=== PATIENT | female | born 1965 | race Caucasian/White ===

== ENCOUNTER 2019-01-24 15:47 | Emergency (ER) | payer MEDICARE, OTHER ==
[2019-01-24 15:59] VITALS: BP 131/87
--- NOTE | 2019-01-24 16:27 | UC ---
Lower Extremity/Ankle HPI - HPI Summary HPI Summary: Patient presents to urgent care with complex medical history including rheumatoid arthritis. Patient is on immunosuppressant therapies as well as prednisone 10 mg a day. Patient states midday today she developed pain in her right forearm. Pain is worse when she extends her wrist. Patient states it feels like a burning flare. Patient states she no she starting a mitral arthritis flare because her knuckles of the little bit sore and stiff. No erythema no fever. Patient has Nucynta at home but did not take it as she tries to use it sparingly. Patient did take Tylenol without much improvement. Patient denies any injury. Patient is right hand dominant. Pt with a history of tendonitis - states this feels somewhat similar. Pain is better at rest - intensifies with movement Patient's medications reviewed this visit. - History of Current Complaint Chief Complaint: UCUpperExtremity Stated Complaint: R WRIST INJURY Time Seen by Provider: 01/24/19 16:14 Hx Obtained From: Patient Hx Last Menstrual Period: 08/13 Severity Initially: Moderate Severity Currently: Moderate Pain Intensity: 9 - Allergies/Home Medications Allergies/Adverse Reactions: Allergies Allergy/AdvReac Type Severity Reaction Status Date / Time morphine Allergy Joint Pain Verified 01/24/19 16:00 venlafaxine [From Effexor] Allergy See Comment Verified 01/24/19 16:00 Home Medications: Home Medications Etodolac 400 mg PO BID 01/24/19 [History Confirmed 01/24/19] Pantoprazole TAB * [Protonix TAB*] 40 mg PO DAILY 01/24/19 [History Confirmed ] PMH/Surg Hx/FS Hx/Imm Hx Previously Healthy: No - RA - Surgical History Surgical History: Yes Surgery Procedure, Year, and Place: LEFT HIP FX, WITH GRANT LEFT HIP SURGERY (FOR SPONTANEOUS FX)LEFT HIP REPLACEMENT 03/26/13. CSP - C5-6 - STENOSISED- POSTERIOR APPROACH - @[facility] – [place] - 2006. C SECTION 1997. lymph nodes removed from left inguinal area, found to be benign 12 + years ago - Family History Known Family History: Positive: Non-Contributory - Social History Lives: With Family Alcohol Use: Occasionally Alcohol Amount: Sober for 2.5yrs Substance Use Type: None Substance Use Comment - Amount & Last Used: "every 6 months" Smoking Status (MU): Never Smoked Tobacco Have You Smoked in the Last Year: No - Immunization History Most Recent Influenza Vaccination: 2011 Most Recent Tetanus Shot: 2007, LAST TITER WAS OCTOBER 2012 Most Recent Pneumonia Vaccination: NEVER Review of Systems All Other Systems Reviewed And Are Negative: Yes Constitutional: Positive: Negative Skin: Positive: Negative Musculoskeletal: Positive: Other: - right forearm Neurological: Positive: Paresthesia Physical Exam - Summary Physical Exam Summary: Vital Signs Reviewed: Yes A+Ox3, no distress Eyes: Conjunctiva Clear, ENT: Hearing grossly normal Neck: Positive: Supple Respiratory: Positive: No respiratory distress, No accessory muscle use Cardiovascular: CBT <2 sec all fingers, 2+ radial, 2+ ulnar abd soft + BS nt/nd no guarding, no distension Musculoskeletal Exam: Abduct right shoulder, + flex/ext elbow w + pronate/ supinate with pain right mid forearm + point tenderness mid dorsal forearm with extension to dosrum wrist. + increased discomfort with extension of wrist no warmth, edema, open wounds Neurological: Positive: Alert, + sensation throughout Psychological: Positive: Normal Response To analysis evaluator Skin: Positive: no rash, no ecchymosis, edema of DIP right hand "flare" per pt Triage Information Reviewed: Yes Vital Signs: Initial Vital Signs Temp 99.1 F 01/24/19 15:55 Pulse 104 01/24/19 15:55 Resp 18 01/24/19 15:55 BP 131/87 01/24/19 15:55 Pulse Ox 100 01/24/19 15:55 Diagnostics - Radiology No standard instances Radiology Interpretation Completed By: Radiologist - Patient Name: JADEN HUBER Medical Record#: [id number] Ordering Physician: Gisele Alvarado ASSEMBLER [employer] Acct.#: [id number] : 1965 Age: 53 Sex: F Location: [facility] Exam Date: 01/24/19 1601 ADM Status: REG ER Order Information: WRIST RIGHT 3 + VWS Accession Number: [id number] CPT: 23349 INDICATION: Right wrist pain COMPARISON: None. TECHNIQUE: 4 views right wrist. REPORT: The visualized bones are properly aligned and well corticated. Degenerative changes include narrowing of the radiocarpal joint with a mild degree of sclerotic change of the distal radius. Degenerative changes include sclerotic change of the articulating services at the right thumb metacarpal trapezium joint. There is a small degree of radial subluxation of the metacarpal relative to the trapezium.There is no fracture, dislocation or other focal osseous abnormality. IMPRESSION: Degenerative changes of the right wrist as described above without radiographically apparent acute fracture. If the patient's symptoms persist, follow-up imaging is recommended. < Electronically signed by Leodan Donovan MD in [place]> 01/24/191628 Dictated By: Leodan Donovan MD Dictated Date/Time: 01/24/191628 Transcribed Date/Time: 1627 Copy to: CC:Gisele Alvarado NP; Lisa Ch MD; Janice Porras MD Imaging - [facility] [address] [place] [address] ph ([phone] ph ([phone]) ph ) This report is only to be considered final once signed by the Provider(s) as displayed in the "<Electronically Signed by >" field (s). Absence of a signature indicates the report is in a draft status and still needs to be finalized. In the event this document was created by someone other than the signing Provider, the individual initiating the document will be listed in the "Entered by:" or "Dictated by:" smiley. 1 of 1 Lower Extremity Course/Dx - Course Course Of Treatment: Patient presents to urgent care reporting progressive pain in her right forearm today. Pain is better at rest worse with movement. Patient states pain is worse with extension of the wrist as well as supination. No direct trauma. Patient states she does have rheumatoid advised to starting a flare. Patient takes 10 mg of prednisone a day as well as other anti-inflammatory immunosuppressant agents. On exam vital signs are stable. Patient with point tenderness over her mid forearm and along the tendon sheath towards the wrist. There is no warmth no erythema no concern for acute infection. Patient is not febrile and is no concern for joint involvement. X-ray show no fracture. After long discussion with patient will start patient on a prednisone taper. Patient took 10 mg today we'll give her another 50 now. In the taper starting at 60 mg. 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 Patient does have Nuycenta at home, take NSAID, and has Tylenol. Patient placed in a forearm splint that she states provides comfort makes it feel better. Patient also given a sling. Encouraged ice or heat for comfort Strict return precautions. Patient comfortable in agreement with plan. - Differential Dx/Diagnosis Provider Diagnosis: Tendonitis Discharge - Sign-Out/Discharge Documenting (check all that apply): Patient Departure All imaging exams completed and their final reports reviewed: Yes - Discharge Plan Condition: Stable Disposition: HOME Prescriptions: predniSONE TAB* [Deltasone 20 MG TAB*] 20 mg PO DAILY #18 tab Patient Education Materials: Tendinitis (ED) Referrals: Janice Porras MD [Primary Care Provider] - Kenny Snell MD [Medical Doctor] - (Call tomorrow to discuss today's evaluation) Additional Instructions: - wear splint and sling for comfort and support - relax your arm in your sling to let it hold the weight of your arm and shoulder - Take prednisone taper as prescribed - Okay to take Tylenol (acetaminophen) every 6 hours in addition to your prescribed pain medication - okay to apply ice or heat for comfort - If you develop fever, reddness, uncontrolled pain, temperature/color changes to your fingers or any other concerns it is recommended you go to the emergency department for further testing and evaluation - contact your rheumatoid specialist tomorrow to discuss your symptoms and care plan - Billing Disposition and Condition Condition: STABLE Disposition: Home
[2019-01-24] MEDS ORDERED: predniSONE TAB* 10 MG PO ONE (16:41)
[2019-01-24] MEDS ORDERED: predniSONE TAB* 20 MG PO ONE (16:42)
== END 2019-01-24 17:05 | disposition home or self-care (01) ==
LOC: UCEAST 15:47
DX: M77.9 Enthesopathy, unspecified (principal); M06.9 Rheumatoid arthritis, unspecified
CPT/HCPCS: 99213; G0463; J7512

== ENCOUNTER 2019-06-08 10:16 | Emergency (ER) | payer MEDICARE, MEDICAID ==
[2019-06-08] MEDS ORDERED: Lidocaine PATCH 5%* 1 PATCH TRANSDERM ONE (13:23)
--- NOTE | 2019-06-08 13:29 | ED ---
HPI Chest Pain - HPI Summary HPI Summary: The patient is a 53 y/o F presenting to [facility] accompanied by with a chief complaint of left lateral rib pain onset five days ago. She reports that she twisted while getting off the couch and felt a popping sensation in the left chest. The pain initially improved, but she has used a Lidocaine patch at home to mild relief, and she has also used a long-release Nucynta that has not relieved the pain. The pain is rated 10/10 in severity with moving and deep inspirations and 5/10 at rest. She denies any SOB. She denies any trauma. She states that she has had previous rib bruising, spontaneous fracture of the left hip, and a history of osteoporosis. Prednisone use for 10 years attributing to low bone density. PMHx: asthma, sleep apnea, GERD, fibromyalgia, arthritis, RA, left hip fracture with replacement. Nonsmoker, occasional EtOH, no substance use. Medications reviewed. Allergies noted. - History of Current Complaint Chief Complaint: EDChestWallPain Time Seen by Provider: 06/08/19 13:22 Hx Obtained From: Patient Hx Last Menstrual Period: 08/13 Onset/Duration: Started Days Ago - five, Still Present Timing: Lasting Days Initial Severity: Severe Current Severity: Severe Pain Intensity: 10 Pain Scale Used: 0-10 Numeric Chest Pain Location: Left Lateral Chest Pain Radiates: No Character: Sharp/Stabbing Aggravating Factor(s): Movement, Deep Breaths Alleviating Factor(s): Rest, Other: - Lidocaine patch Associated Signs and Symptoms: Negative: Shortness of Breath - Allergy/Home Medications Allergies/Adverse Reactions: Allergies Allergy/AdvReac Type Severity Reaction Status Date / Time morphine Allergy Joint Pain Verified 01/24/19 16:00 venlafaxine [From Effexor] Allergy See Comment Verified 01/24/19 16:00 Home Medications: Home Medications Adalimumab (NF) [Humira Pen (NF)] 40 mg SUBCUT WEEKLY 06/08/19 [History Confirmed 06/08/19] FLUoxetine CAP* [PROzac CAP*] 20 mg PO DAILY 06/08/19 [History Confirmed ] Potassium Chlor TAB* [Klor Con ER TAB*] 20 meq PO DAILY 06/08/19 [History Confirmed 06/08/19] Tapentadol ER (NF) [Nucynta ER (NF)] 100 mg PO DAILY 06/08/19 [History Confirmed 06/08/19] Tapentadol(NF) [Nucynta(NF)] 50 mg PO DAILY 06/08/19 [History Confirmed 06/08/19 ] buPROPion SR TAB* [Wellbutrin SR TAB*] 200 mg PO DAILY 06/08/19 [History Confirmed 06/08/19] traZODone TAB* [Desyrel TAB*] 150 mg PO BEDTIME PRN 06/08/19 [History Confirmed 06/08/19] PMH/Surg Hx/FS Hx/Imm Hx Endocrine/Hematology History: Denies: Hx Diabetes, Hx Systemic Lupus Erythematosus Cardiovascular History: Denies: Hx Congestive Heart Failure, Hx Hypertension, Hx Pacemaker/ICD Respiratory History: Reports: Hx Asthma, Hx Sleep Apnea - POSSIBLE Denies: Hx Chronic Obstructive Pulmonary Disease (COPD) GI History: Reports: Hx Gastroesophageal Reflux Disease, Other GI Disorders - MORNING DIARRHEA History: Reports: Other Problems/Disorders Denies: Hx Dialysis, Hx Renal Disease Musculoskeletal History: Reports: Hx Arthritis, Hx Rheumatoid Arthritis, Hx Back Problems, Hx Fibromyalgia, Hx Osteoporosis, Other Musculoskeletal History - fibromyalgia Sensory History: Denies: Hx Cataracts, Hx Contacts or Glasses, Hx Hearing Aid Opthamlomology History: Denies: Hx Cataracts, Hx Contacts or Glasses Neurological History: Reports: Other Neuro Impairments/Disorders - WEAKNESS LEFT ARM R/T NECK ISSUE R/T PREVIOUS C6 SURGERY Denies: Hx Dementia, Hx Headaches, Hx Seizures Psychiatric History: Reports: Hx Depression Denies: Hx Panic Disorder, Hx Substance Abuse - Cancer History Hx Chemotherapy: No Hx Radiation Therapy: No - Surgical History Surgical History: Yes Surgery Procedure, Year, and Place: LEFT HIP FX, WITH GRANT LEFT HIP SURGERY (FOR SPONTANEOUS FX)LEFT HIP REPLACEMENT 03/26/13. CSP - C5-6 - STENOSISED- [place] [place] C SECTION 1997. lymph nodes removed from left inguinal area, found to be benign 12 + years ago Hx Anesthesia Reactions: No - Immunization History Date of Tetanus Vaccine: Unk Date of Influenza Vaccine: None Infectious Disease History: No Infectious Disease History: Denies: Traveled Outside the [place] in Last 30 Days - Family History Known Family History: Negative: Diabetes - Social History Alcohol Use: Occasionally Alcohol Amount: Sober for 2.5yrs Hx Substance Use: No Substance Use Type: Reports: None Substance Use Comment - Amount & Last Used: "every 6 months" Hx Tobacco Use: No Smoking Status (MU): Never Smoked Tobacco Have You Smoked in the Last Year: No Review of Systems Positive: Chest Pain - left lateral rib pain Negative: Shortness Of Breath All Other Systems Reviewed And Are Negative: Yes Physical Exam - Summary Physical Exam Summary: Constitutional: Well-developed, Well-nourished, Alert, Active (-) Distressed, (- ) Diaphoretic HENT: Anterior fontanelle flat, Right TM normal and Left TM normal, Normal nose , Mucous membranes moist, Oropharynx clear. (-) Cranial deformity Eyes: Conjunctiva normal, EOM intact, PERRL. Neck: ROM normal, Neck supple. (-) Cervical adenopathy Cardio: Rhythm regular, rate normal, Heart sounds normal, S1 normal, S2 normal, Intact distal pulses, Pulses strong. (-) Murmur Pulmonary/Chest wall: Effort normal, Breath sounds normal. (-) Retraction, (-) Respiratory distress, (-) Wheezes, (-) Rales, (-) Rhonchi, (-) Stridor, (-) Nasal flaring Abd: Soft. (-) Distension, (-) Tenderness, (-) Guarding, (-) Rebound, (-) Hepatosplenomegaly, (-) Mass Musculoskeletal: Tenderness over the lower lateral ribs on the left side. Normal ROM. (-) Edema Lymph: (-) Cervical adenopathy Neuro: Alert Skin: Warm, Dry. (-) Rash, (-) Purpura, (-) Diaphoresis, (-) Petechiae, (-) Cyanosis Triage Information Reviewed: Yes Vital Signs On Initial Exam: Initial Vitals Temp Pulse Resp BP Pulse Ox 98.8 F 92 16 190/119 97 06/08/19 10:29 06/08/19 10:29 06/08/19 10:29 06/08/19 10:29 06/08/19 10:29 Vital Signs Reviewed: Yes Procedures - Sedation Patient Received Moderate/Deep Sedation with Procedure: No Diagnostics - Vital Signs Vital Signs Temp Pulse Resp BP Pulse Ox 06/08/19 11:21 98.2 F 85 18 200/128 100 06/08/19 10:29 98.8 F 92 16 190/119 97 - Laboratory Lab Statement: Any lab studies that have been ordered have been reviewed, and results considered in the medical decision making process. - Radiology Ribs w CXR Radiology Interpretation Completed By: Radiologist Summary of Radiographic Findings: Impression: Left ninth rib fracture. ED physician has reviewed this report. Re-Evaluation - Re-Evaluation First Eval Re-Evaluation Time: 14:35 Change: Improved Comment: Her pain has improved. Bedside US reveals no free fluid in LUQ ( patient was concerned about spleen given fr) We discussed results and plan for discharge. Chest Pain Course/Dx - Course Course Of Treatment: 53-year-old with osteoporosis secondary to chronic steroid use presents with left rib pain found to have a ninth rib fracture. - Atraumatic or fracture likely and secondary osteoporosis. Given Percocet, lidocaine patch. Patient will stop her home pain medication. - feels better w pain medication. - Diagnoses Provider Diagnoses: Fracture of rib of left side Discharge ED - Sign-Out/Discharge Documenting (check all that apply): Patient Departure - Patient will be discharged home. - Discharge Plan Condition: Stable Disposition: HOME Prescriptions: oxyCODONE/Acetamin 5/325 MG* [Percocet 5/325 TAB*] 1 tab PO Q6H PRN 3 Days #12 tab MDD 4 PRN Reason: Pain Patient Education Materials: Rib Fracture (ED) Referrals: Janice Porras MD [Primary Care Provider] - 3 Days Additional Instructions: You were seen in the emergency department for rib fracture. Please take percocet for severe pain. Please follow up with your primary care doctor in the next 2-3 days and return to the emergency department for worsening pain, trouble breathing, or concerning symptoms. It was a pleasure taking care of you today. - Billing Disposition and Condition Condition: STABLE Disposition: Home - Attestation Statements Document Initiated by Haiibe: Yes Documenting Scribe: Kavitha Moscoso Provider For Whom Barbara is Documenting (Include Credential): Dr. Devante Monzon MD Scribe Attestation: Kavitha Barber scribed for Dr. Devante Monzon MD on 06/08/19 at 1446. Scribe Documentation Reviewed: Yes Provider Attestation: The documentation as recorded by the Kavitha mondragon accurately reflects the service I personally performed and the decisions made by me, Dr. Devante Monzon MD Status of Scribe Document: Viewed
[2019-06-08] MEDS ORDERED: oxyCODONE/Acetamin 5/325 MG* TAB PO ONE (13:36)
[2019-06-08 14:59] VITALS: BP 182/117
[2019-06-08] MEDS ORDERED: Lidocaine Patch REMOVE* 1 NOTE MISC SCH (21:00)
== END 2019-06-08 14:50 | disposition home or self-care (01) ==
LOC: ED 10:16
DX: S22.32XA Fracture of one rib, left side, initial encounter for closed fracture (principal); R07.81 Pleurodynia; K21.9 Gastro-esophageal reflux disease without esophagitis; Z79.899 Other long term (current) drug therapy; R07.9 Chest pain, unspecified; X50.9XXA Other and unspecified overexertion or strenuous movements or postures, initial encounter; Y92.9 Unspecified place or not applicable
CPT/HCPCS: 99283; A9270-GY

== ENCOUNTER 2021-02-24 14:24 | Inpatient (IN) ==
[2021-02-24] MEDS ORDERED: Ondansetron 4 mg VIAL 2 MG/ML 2 ml VIAL IV ONE (14:48)
[2021-02-24] MEDS ORDERED: Rocuronium 50 mg VIAL 10 mg/ml 5 ml VIAL (50 mg) ONE (15:01)
[2021-02-24] MEDS ORDERED: Succinylcholine 200 mg VIAL 20 mg/ml 10 ml VIAL (200 mg) ONE (15:01)
[2021-02-24] MEDS ORDERED: Midazolam 5 mg/ml concentrated 5 mg/ml 1 ml VIAL ONE ×2 (15:06→16:05)
[2021-02-24] MEDS ORDERED: Etomidate 40 mg/20 ml (2 MG/ML) 20 ml VIAL (40 mg) ONE (15:10)
[2021-02-24] MEDS ORDERED: Propofol 10 mg/ml 100 ML BTL 100 ML ONE ×2 (15:17→18:11)
[2021-02-24 15:22] LABS: INR 0.99 (0.86-1.15)
[2021-02-24 15:23] LABS: ABS Lymphocytes 7.7 10^3/ul (1.0-4.8); ABS Monocytes 0.2 10^3/ul (0-0.8); ABS Neutrophils 6.4 10^3/ul (1.5-7.7); Hematocrit 43 % (35-47); Hemoglobin 14.4 g/dL (12.0-16.0); Lymphocyte % 53.9 %; Mean Corpuscular HGB Conc 33 g/dL (31-36); Mean Corpuscular Hemoglobin 33 pg (27-31); Mean Corpuscular Volume 98 fL (80-97); Mean Platelet Volume 7.5 fL (7.4-10.4); Nucleated Red Blood Cells % 0.1; Platelet Count 386 10^3/uL (150-450); Red Cell Distribution Width 15 % (10-15); White Blood Count 14.4 10^3/uL (3.5-10.8)
[2021-02-24 15:33] LABS: Albumin 4.2 g/dL (3.2-5.2); Albumin/Globulin Ratio 1.5 (1-3); Alkaline Phosphatase 66 U/L (35-149); Blood Urea Nitrogen 30 mg/dL (6-24); C Reactive Protein 14.16 mg/L (<8.01); CO2 Carbon Dioxide 22 mmol/L (22-32); Calcium 9.3 mg/dL (8.6-10.3); Chloride 101 mmol/L (101-111); Creatine Kinase 518 U/L (10-223); EGFR African American 22.9 (>60); EGFR Non-African American 18.9 (>60); Globulin 2.8 g/dL (2-4); Glucose 83 mg/dL (70-100); Sodium 139 mmol/L (135-145)
[2021-02-24 15:41] LABS: Anion Gap 16 mmol/L (2-11)
[2021-02-24 15:42] LABS: Troponin I 0.27 ng/mL (<0.03)
[2021-02-24 16:04] LABS: ALT 694 U/L (7-52)
[2021-02-24] MEDS ORDERED: Norepinephrine 16MCG/ML IVPRE 4,000 MCG/250 ML BAG IV ONE (16:05)
[2021-02-24 16:24] LABS: Phosphorus 13.3 mg/dL (2.5-5.0)
[2021-02-24] MEDS ORDERED: cefTRIAXone 1 gm/50 mL NS BAG 1 GM/50 ML BAG IVPB SCH (17:00)
[2021-02-24] MEDS ORDERED: Midazolam 10 mg/10 ml VIAL 1 mg/ml 10 ml VIAL (10 mg) IV ONE (17:09)
[2021-02-24] MEDS ORDERED: Lorazepam PYXIS KEY PRN (17:55)
[2021-02-24] MEDS ORDERED: Lorazepam PYXIS KEY ONE (18:14)
[2021-02-24] MEDS ORDERED: LORazepam 2 mg VIAL 1 ml ONE (18:14)
[2021-02-24] MEDS: LORazepam 2 mg VIAL 1 ml IV PUSH PRN (18:17)
[2021-02-24 18:19] LABS: Urine Appearance Cloudy; Urine Bilirubin Negative (Negative); Urine Blood 3+ (Negative); Urine Color Yellow; Urine Glucose Negative (Negative); Urine Ketones Negative (Negative); Urine Nitrite Negative (Negative); Urine Protein 2+(100 mg/dL) (Negative); Urine Specific Gravity 1.011 (1.002-1.030); Urine Urobilinogen Negative (Negative)
[2021-02-24 18:25] LABS: PCO2 Arterial 46 mmHg (35-45); PO2 Arterial 68 mmHg (80-100)
[2021-02-24 18:29] LABS: Urine Bacteria 1+ (Absent); Urine Red Blood Cell 3+(>10/hpf) (Absent); Urine Squamous Epithelial Cell Present (Absent); Urine White Blood Cell 3+(>20/hpf) (Absent)
[2021-02-24 18:35] LABS: Magnesium 1.9 mg/dL (1.9-2.7); Potassium Redraw 4.3 mmol/L (3.5-5.0)
[2021-02-24 18:36] LABS: Urine Benzodiazepine Screen Presumptive Positive (None Detect); Urine Cannabinoids Screen Presumptive Positive (None Detect); Urine Opiates Screen None Detected (None Detect)
[2021-02-24 18:41] LABS: Troponin I 0.56 ng/mL (<0.03)
[2021-02-24 19:01] LABS: AST Redraw 1719 U/L (13-39)
[2021-02-24] MEDS: Azithromycin 500 mg/250 ml NS 500 MG/250 ML BAG IVPB SCH (19:06)
[2021-02-24 20:14] LABS: Rapid COVID-19 Molecular Undetected (Undetected)
[2021-02-24] MEDS: Chlorhexidine MOUTHWASH 0.12% 15 ML UDC TOPICAL SCH (20:32)
[2021-02-24] MEDS: Pantoprazole VIAL 40 MG VIAL IV SCH (20:32)
[2021-02-24] MEDS ORDERED: NS 0.9% 1000 ml BAG 1,000 ML IV ONE (21:39)
[2021-02-24] MEDS: Propofol 10 mg/ml 100 ML BTL 100 ML IV SCH ×2 (21:50→22:22)
[2021-02-24] MEDS: Norepinephrine 16MCG/ML IVPRE 4,000 MCG/250 ML BAG IV SCH (23:22)
[2021-02-25 01:32] LABS: Troponin I 3.07 ng/mL (<0.03)
[2021-02-25] MEDS ORDERED: NS 0.9% 1000 ml BAG 1,000 ML IV ONE (01:41)
[2021-02-25] MEDS: Chlorhexidine MOUTHWASH 0.12% 15 ML UDC TOPICAL SCH ×6 (02:03→21:37)
[2021-02-25 02:15] LABS: PCO2 Arterial 32 mmHg (35-45); PO2 Arterial 258 mmHg (80-100)
[2021-02-25] MEDS: Hydrocortisone INJ 100 MG/2ML 2 ML VIAL IV SCH ×3 (03:05→21:37)
[2021-02-25 03:45] LABS: Hematocrit 34 % (35-47); Hemoglobin 11.5 g/dL (12.0-16.0); Mean Corpuscular HGB Conc 34 g/dL (31-36); Mean Corpuscular Hemoglobin 33 pg (27-31); Mean Corpuscular Volume 99 fL (80-97); Mean Platelet Volume 8.3 fL (7.4-10.4); Platelet Count 294 10^3/uL (150-450); Red Blood Count 3.47 10^6 /uL (3.70-4.87); Red Cell Distribution Width 15 % (10-15); White Blood Count 12.4 10^3/uL (3.5-10.8)
[2021-02-25 03:54] LABS: Albumin 2.6 g/dL (3.2-5.2); Magnesium 1.5 mg/dL (1.9-2.7); Potassium 3.4 mmol/L (3.5-5.0); Sodium 142 mmol/L (135-145)
[2021-02-25 04:00] LABS: Albumin/Globulin Ratio 1.4 (1-3); Alkaline Phosphatase 55 U/L (35-149); Blood Urea Nitrogen 36 mg/dL (6-24); EGFR African American 17.9 (>60); EGFR Non-African American 14.8 (>60); Globulin 1.8 g/dL (2-4); Phosphorus 5.5 mg/dL (2.5-5.0); Total Protein 4.4 g/dL (6.4-8.9)
[2021-02-25 04:03] LABS: Chloride 114 mmol/L (101-111)
[2021-02-25 04:15] LABS: Creatine Kinase 1197 U/L (10-223)
[2021-02-25 04:20] LABS: Anion Gap 18 mmol/L (2-11); CO2 Carbon Dioxide 10 mmol/L (22-32); Calcium 6.2 mg/dL (8.6-10.3); Glucose 39 mg/dL (70-100)
[2021-02-25 04:21] LABS: ALT 1026 U/L (7-52); AST 1270 U/L (13-39)
[2021-02-25] MEDS ORDERED: Dextrose 50% Syringe 50 ml 25 GM/50 ML SYRINGE ONE (04:21)
[2021-02-25] MEDS: Norepinephrine 16MCG/ML IVPRE 4,000 MCG/250 ML BAG IV SCH ×4 (04:23→14:11)
[2021-02-25] MEDS ORDERED: Sodium Bicarbonate 8.4% SYR 50 ml SYRINGE IV ONE (04:30)
[2021-02-25] MEDS ORDERED: Potassium Chloride LIQUID 20 MEQ/15 ML LIQUID PO ONE (04:31)
[2021-02-25] MEDS ORDERED: Magnesium Sulfate IV 3 GM in NS 0.9% 100 ml BAG 100 ML IVPB ONE (04:31)
[2021-02-25 04:37] LABS: ABS Eosinophils 0.2 10^3/ul (0-0.6); ABS Lymphocytes 3.4 10^3/ul (1.0-4.8); ABS Monocytes 0.3 10^3/ul (0-0.8); ABS Neutrophils 8.5 10^3/ul (1.5-7.7); Eosinophil % 1.2 %; Lymphocyte % 27.3 %; Nucleated Red Blood Cells % 0.2
[2021-02-25 04:40] LABS: Polychromasia 1+
[2021-02-25 04:41] LABS: Troponin I 2.91 ng/mL (<0.03)
[2021-02-25] MEDS ORDERED: NORMOSOL-R pH 7.4 1000 mL BAG 1,000 ML IV SCH (05:00)
[2021-02-25] MEDS: Dextrose 50% Syringe 50 ml 25 GM/50 ML SYRINGE IV PUSH PRN ×2 (06:15→06:22)
[2021-02-25] MEDS ORDERED: Perflutren Lipid Microsphere 3 ML VIAL ONE (08:03)
[2021-02-25 09:03] LABS: Alcohol, S < 13 mg/dL (<13)
[2021-02-25 09:24] LABS: Albumin/Globulin Ratio 1.4 (1-3); Alkaline Phosphatase 71 U/L (35-149); Blood Urea Nitrogen 37 mg/dL (6-24); CO2 Carbon Dioxide 16 mmol/L (22-32); Calcium 6.8 mg/dL (8.6-10.3); Chloride 105 mmol/L (101-111); Creatine Kinase 1501 U/L (10-223); EGFR African American 16.4 (>60); EGFR Non-African American 13.6 (>60); Globulin 2.1 g/dL (2-4); Glucose 102 mg/dL (70-100); Sodium 141 mmol/L (135-145); Total Protein 5.1 g/dL (6.4-8.9)
[2021-02-25 09:32] LABS: Anion Gap 20 mmol/L (2-11)
[2021-02-25] MEDS: Pantoprazole VIAL 40 MG VIAL IV SCH (10:03)
[2021-02-25 10:37] LABS: ALT 1882 U/L (7-52)
[2021-02-25 10:51] LABS: Magnesium 2.9 mg/dL (1.9-2.7); Potassium Redraw 4.2 mmol/L (3.5-5.0)
[2021-02-25] MEDS ORDERED: ACETYLCYSTEINE IV ONE ×3 (12:00→17:00)
[2021-02-25] MEDS ORDERED: D5W IV ONE ×3 (12:00→17:00)
[2021-02-25 12:17] LABS: INR 1.29 (0.86-1.15)
[2021-02-25 12:18] LABS: Albumin 3.1 g/dL (3.2-5.2); Albumin/Globulin Ratio 1.6 (1-3); EGFR African American 13.2 (>60); EGFR Non-African American 10.9 (>60); Potassium 4.3 mmol/L (3.5-5.0); Total Bilirubin 0.4 mg/dL (0.2-1.0); Total Protein 5.1 g/dL (6.4-8.9)
[2021-02-25] MEDS: Propofol 10 mg/ml 100 ML BTL 100 ML IV SCH (13:04)
[2021-02-25 13:14] LABS: Acetaminophen < 15 mcg/mL; Salicylate < 2.50 mg/dL (<30)
[2021-02-25] MEDS ORDERED: Piperacillin/Tazobac ADVAN 3.375 GM in NS 0.9% 100 ml BAG 100 ML IV ONE (14:05)
[2021-02-25] MEDS ORDERED: Norepinephrine 16MCG/ML IVPRE 4,000 MCG/250 ML BAG IV ONE (14:08)
[2021-02-25] MEDS ORDERED: Zosyn per Pharmacy NOTE FOLLOW UP SCH (15:00)
[2021-02-25] MEDS: fentaNYL INFUSION 50 mcg/mL VL 2,500 MCG/50 ML VIAL IV SCH (15:00)
[2021-02-25] MEDS ORDERED: Phenylephrine IV 50 MG in NS 0.9% 250 ml 245 ML IV SCH (15:00)
[2021-02-25 15:16] LABS: Acetaminophen < 15 mcg/mL
[2021-02-25] MEDS: Norepinephrine *QUAD STRENGTH* 16 mg/250 mL NS per protocol IV SCH ×2 (16:00→23:06)
[2021-02-25] MEDS: Azithromycin 500 mg/250 ml NS 500 MG/250 ML BAG IVPB SCH (17:25)
[2021-02-25 18:33] LABS: Albumin 2.9 g/dL (3.2-5.2); Albumin/Globulin Ratio 1.4 (1-3); EGFR Non-African American 10.8 (>60); Globulin 2.1 g/dL (2-4); Potassium 4.6 mmol/L (3.5-5.0); Total Bilirubin 0.4 mg/dL (0.2-1.0)
[2021-02-25 18:38] LABS: Calcium 6.4 mg/dL (8.6-10.3)
[2021-02-25] MEDS ORDERED: Lactated Ringers 1000 ml BAG 1,000 ML IV ONE (18:39)
[2021-02-25] MEDS: ZOSYN 3.375 GM Q12H per EXTENDED INFUSION IV SCH (21:37)
[2021-02-25] MEDS: Heparin 5000 UNITS/ML 1 mL VIAL SUBCUT SCH (21:37)
[2021-02-26] MEDS: Chlorhexidine MOUTHWASH 0.12% 15 ML UDC TOPICAL SCH ×6 (02:33→21:54)
[2021-02-26] MEDS ORDERED: Lactated Ringers 1000 ml BAG 1,000 ML IV ONE (05:14)
[2021-02-26] MEDS: Hydrocortisone INJ 100 MG/2ML 2 ML VIAL IV SCH ×3 (05:37→21:54)
[2021-02-26 06:12] LABS: PCO2 Arterial 23 mmHg (35-45); PO2 Arterial 183 mmHg (80-100)
[2021-02-26 06:23] LABS: Hematocrit 36 % (35-47); Hemoglobin 12.3 g/dL (12.0-16.0); Mean Corpuscular HGB Conc 34 g/dL (31-36); Mean Corpuscular Hemoglobin 33 pg (27-31); Mean Corpuscular Volume 96 fL (80-97); Mean Platelet Volume 8.2 fL (7.4-10.4); Platelet Count 240 10^3/uL (150-450); Red Blood Count 3.74 10^6 /uL (3.70-4.87); Red Cell Distribution Width 15 % (10-15); White Blood Count 23.6 10^3/uL (3.5-10.8)
[2021-02-26 06:44] LABS: Albumin 2.6 g/dL (3.2-5.2); Albumin/Globulin Ratio 1.1 (1-3); EGFR African American 10.9 (>60); Globulin 2.4 g/dL (2-4); Magnesium 2.4 mg/dL (1.9-2.7); Phosphorus 6.1 mg/dL (2.5-5.0); Total Bilirubin 0.5 mg/dL (0.2-1.0)
[2021-02-26 07:39] LABS: Calcium 6.3 mg/dL (8.6-10.3)
[2021-02-26] MEDS: fentaNYL INFUSION 50 mcg/mL VL 2,500 MCG/50 ML VIAL IV SCH (07:53)
[2021-02-26 08:04] LABS: ABS Eosinophils 0.1 10^3/ul (0-0.6); ABS Lymphocytes 4.8 10^3/ul (1.0-4.8); ABS Monocytes 0.6 10^3/ul (0-0.8); ABS Neutrophils 18.1 10^3/ul (1.5-7.7); Eosinophil % 0.5 %; Lymphocyte % 20.3 %; Nucleated Red Blood Cells % 0.1; RBC Morphology Normal (Normal)
[2021-02-26 08:19] LABS: Potassium 4.9 mmol/L (3.5-5.0)
[2021-02-26 08:20] LABS: Calcium 6.4 mg/dL (8.6-10.3); EGFR African American 11.4 (>60); EGFR Non-African American 9.4 (>60)
[2021-02-26 08:21] LABS: Albumin 2.8 g/dL (3.2-5.2); Albumin/Globulin Ratio 1.1 (1-3); Globulin 2.5 g/dL (2-4); Total Bilirubin 0.5 mg/dL (0.2-1.0); Total Protein 5.3 g/dL (6.4-8.9)
[2021-02-26] MEDS: Propofol 10 mg/ml 100 ML BTL 100 ML IV SCH (08:27)
[2021-02-26] MEDS: Heparin 5000 UNITS/ML 1 mL VIAL SUBCUT SCH ×2 (08:35→21:54)
[2021-02-26] MEDS: Pantoprazole VIAL 40 MG VIAL IV SCH (08:35)
[2021-02-26] MEDS ORDERED: fentaNYL 100 mcg/2 ml 50 MCG/ML VIAL IV SLOW PU PRN (09:36)
[2021-02-26] MEDS: Linezolid 600 MG IVPREMIX(*) 600 MG/300 ML BAG IVPB SCH ×2 (10:21→21:54)
[2021-02-26] MEDS: ZOSYN 3.375 GM Q12H per EXTENDED INFUSION IV SCH ×2 (10:34→21:54)
[2021-02-26] MEDS: Dexmedetomidine 1,000 MCG in NS 0.9% 250 ml 240 ML IV SCH (11:44)
[2021-02-26] MEDS ORDERED: Dextran 70/Hypromellose Tears Eye Drops 15 ml BTL (for Artificials Tears) BOTH EYES PRN (12:32)
[2021-02-26] MEDS: Norepinephrine *QUAD STRENGTH* 16 mg/250 mL NS per protocol IV SCH (13:24)
[2021-02-26] MEDS ORDERED: Furosemide 40 mg/4 ml IV VIAL IV SLOW PU ONE (14:48)
[2021-02-26 17:15] LABS: Albumin 2.4 g/dL (3.2-5.2); Potassium 5.2 mmol/L (3.5-5.0); Total Bilirubin 0.7 mg/dL (0.2-1.0)
[2021-02-26 17:21] LABS: Albumin/Globulin Ratio 1.3 (1-3); EGFR African American 10.3 (>60); EGFR Non-African American 8.5 (>60); Globulin 1.8 g/dL (2-4); Total Protein 4.2 g/dL (6.4-8.9)
[2021-02-26 17:42] LABS: Calcium 6.1 mg/dL (8.6-10.3)
[2021-02-26] MEDS ORDERED: Senna TAB 8.6 mg TAB PO PRN (17:46)
[2021-02-26] MEDS: Azithromycin 500 mg/250 ml NS 500 MG/250 ML BAG IVPB SCH (18:12)
[2021-02-26] MEDS ORDERED: Propofol 10 mg/ml 100 ML BTL 100 ML IV SCH (21:39)
[2021-02-26] MEDS: Docusate LIQ 100 MG/10 ML UDC PO SCH (22:10)
[2021-02-26] MEDS: Polyethylene Glycol 3350 17 GM PACKET PO SCH (22:10)
[2021-02-27] MEDS ORDERED: Norepinephrine IV 16 MG in NS 0.9% 250 ml 234 ML IV SCH (03:24)
[2021-02-27] MEDS: Chlorhexidine MOUTHWASH 0.12% 15 ML UDC TOPICAL SCH ×6 (03:27→21:54)
[2021-02-27] MEDS ORDERED: Norepinephrine *QUAD STRENGTH* 16 mg/250 mL NS per protocol IV SCH (03:30)
[2021-02-27] MEDS: Hydrocortisone INJ 100 MG/2ML 2 ML VIAL IV SCH ×3 (05:22→21:53)
[2021-02-27 05:50] LABS: Hematocrit 33 % (35-47); Hemoglobin 11.3 g/dL (12.0-16.0); Mean Corpuscular HGB Conc 35 g/dL (31-36); Mean Corpuscular Hemoglobin 33 pg (27-31); Mean Corpuscular Volume 94 fL (80-97); Mean Platelet Volume 8.4 fL (7.4-10.4); Platelet Count 218 10^3/uL (150-450); Red Blood Count 3.47 10^6 /uL (3.70-4.87); Red Cell Distribution Width 15 % (10-15); White Blood Count 29.6 10^3/uL (3.5-10.8)
[2021-02-27 05:53] LABS: ABS Lymphocytes 6.7 10^3/ul (1.0-4.8); ABS Monocytes 0.6 10^3/ul (0-0.8); ABS Neutrophils 22.2 10^3/ul (1.5-7.7); Eosinophil % 0.1 %; Lymphocyte % 22.7 %; Nucleated Red Blood Cells % 0.1
[2021-02-27 05:57] LABS: INR 1.44 (0.86-1.15)
[2021-02-27 06:00] LABS: Magnesium 2.4 mg/dL (1.9-2.7); Phosphorus 7.2 mg/dL (2.5-5.0)
[2021-02-27] MEDS: Dexmedetomidine 1,000 MCG in NS 0.9% 250 ml 240 ML IV SCH (08:23)
[2021-02-27 08:26] LABS: Albumin 2.6 g/dL (3.2-5.2); Calcium 6.5 mg/dL (8.6-10.3); EGFR African American 9.7 (>60); Globulin 2.7 g/dL (2-4); Total Bilirubin 0.8 mg/dL (0.2-1.0); Total Protein 5.3 g/dL (6.4-8.9)
[2021-02-27 08:59] LABS: Potassium 5.2 mmol/L (3.5-5.0)
[2021-02-27] MEDS: Docusate LIQ 100 MG/10 ML UDC PO SCH (09:01)
[2021-02-27] MEDS: Pantoprazole VIAL 40 MG VIAL IV SCH (09:01)
[2021-02-27] MEDS: Polyethylene Glycol 3350 17 GM PACKET PO SCH (09:01)
[2021-02-27] MEDS: Heparin 5000 UNITS/ML 1 mL VIAL SUBCUT SCH ×2 (09:01→21:53)
[2021-02-27] MEDS: Linezolid 600 MG IVPREMIX(*) 600 MG/300 ML BAG IVPB SCH ×2 (09:02→21:53)
[2021-02-27] MEDS: fentaNYL 100 mcg/2 ml 50 MCG/ML VIAL IV SLOW PU PRN ×2 (10:30→11:30)
[2021-02-27] MEDS: ZOSYN 3.375 GM Q12H per EXTENDED INFUSION IV SCH ×2 (11:05→21:53)
[2021-02-27] MEDS ORDERED: NS 0.9% IVPB PRN (11:32)
[2021-02-27] MEDS ORDERED: Albumin Human 25% 25 GM/100 ML IV PRN (11:37)
[2021-02-27 13:48] LABS: Urine Alcohol Negative mg/dL (Cutoff: 10); Urine Barbiturates Negative; Urine Benzodiazepines Presumptive Positive ng/mL; Urine Cocaine Presumptive Positive ng/mL; Urine Methadone Negative (Negative); Urine Opiates Negative (Negative); Urine Phencyclidine Negative ng/mL (Cutoff: 25); Urine Tetrahydrocannabinol Negative ng/mL (Cutoff: 50)
[2021-02-27] MEDS ORDERED: Atropine 0.1 MG/ML 10 ml SYR (1 mg) ONE (15:26)
[2021-02-27] MEDS: Heparin 1,000 UNIT/ML 10 ml (10,000 UNITS) CATHLAB/DIALYSIS DIALYSIS PRN (16:57)
[2021-02-27] MEDS: Azithromycin 500 mg/250 ml NS 500 MG/250 ML BAG IVPB SCH (17:53)
[2021-02-27 18:14] LABS: Anion Gap 17 mmol/L (2-11); Blood Urea Nitrogen 44 mg/dL (6-24); CO2 Carbon Dioxide 19 mmol/L (22-32); Calcium 7.4 mg/dL (8.6-10.3); Chloride 101 mmol/L (101-111); EGFR African American 15.7 (>60); Glucose 86 mg/dL (70-100); Potassium 4.1 mmol/L (3.5-5.0); Sodium 137 mmol/L (135-145)
[2021-02-27 18:17] LABS: Troponin I 1.19 ng/mL (<0.03)
[2021-02-27] MEDS: LORazepam 2 mg VIAL 1 ml IV PUSH PRN (20:21)
[2021-02-28 03:05] LABS: Hepatitis B Surface Antigen Nonreactive (Nonreactive)
[2021-02-28 03:22] LABS: Hepatitis B Surface Ab Not Immune (Immune)
[2021-02-28] MEDS: Chlorhexidine MOUTHWASH 0.12% 15 ML UDC TOPICAL SCH ×6 (03:34→21:35)
[2021-02-28 05:41] LABS: Hematocrit 30 % (35-47); Hemoglobin 10.3 g/dL (12.0-16.0); Mean Corpuscular HGB Conc 35 g/dL (31-36); Mean Corpuscular Hemoglobin 32 pg (27-31); Mean Corpuscular Volume 93 fL (80-97); Mean Platelet Volume 8.5 fL (7.4-10.4); Platelet Count 165 10^3/uL (150-450); Red Blood Count 3.18 10^6 /uL (3.70-4.87); Red Cell Distribution Width 14 % (10-15); White Blood Count 29.7 10^3/uL (3.5-10.8)
[2021-02-28 05:48] LABS: ABS Basophils 0.1 10^3/ul (0-0.2); ABS Eosinophils 0.1 10^3/ul (0-0.6); ABS Lymphocytes 6.3 10^3/ul (1.0-4.8); ABS Neutrophils 22.2 10^3/ul (1.5-7.7); Eosinophil % 0.3 %; Lymphocyte % 21.1 %
[2021-02-28 05:58] LABS: Albumin 2.5 g/dL (3.2-5.2); Calcium 7.2 mg/dL (8.6-10.3); EGFR African American 12.5 (>60); EGFR Non-African American 10.3 (>60); Globulin 2.6 g/dL (2-4); Magnesium 2.3 mg/dL (1.9-2.7); Potassium 4.3 mmol/L (3.5-5.0); Total Protein 5.1 g/dL (6.4-8.9)
[2021-02-28] MEDS: LORazepam 2 mg VIAL 1 ml IV PUSH PRN ×2 (08:11→22:40)
[2021-02-28] MEDS: fentaNYL 100 mcg/2 ml 50 MCG/ML VIAL IV SLOW PU PRN (08:34)
[2021-02-28] MEDS ORDERED: Metoprolol Tartrate 5 mg VIAL 5 ml VIAL (1 mg/ml) IV PRN (08:34)
[2021-02-28] MEDS ORDERED: Metoprolol Tartrate 5 mg VIAL 5 ml VIAL (1 mg/ml) ONE (08:45)
[2021-02-28 08:48] LABS: RBC Morphology Normal (Normal)
[2021-02-28] MEDS: Linezolid 600 MG IVPREMIX(*) 600 MG/300 ML BAG IVPB SCH ×2 (08:52→21:35)
[2021-02-28] MEDS ORDERED: Amiodarone 150 mg IVPREMIX 150 MG/100 ML BAG IV ONE (08:59)
[2021-02-28] MEDS ORDERED: Amiodarone 360 MG IVPREMIX 360 MG/200 ML BAG IV SCH ×2 (09:00→15:00)
[2021-02-28] MEDS: Polyethylene Glycol 3350 17 GM PACKET PO SCH (09:16)
[2021-02-28] MEDS: Docusate LIQ 100 MG/10 ML UDC PO SCH (09:16)
[2021-02-28] MEDS: Heparin 1,000 UNIT/ML 10 ml (10,000 UNITS) CATHLAB/DIALYSIS DIALYSIS PRN (10:45)
[2021-02-28] MEDS: Heparin 5000 UNITS/ML 1 mL VIAL SUBCUT SCH ×2 (11:24→21:35)
[2021-02-28] MEDS: Pantoprazole VIAL 40 MG VIAL IV SCH (11:24)
[2021-02-28] MEDS: ZOSYN 3.375 GM Q12H per EXTENDED INFUSION IV SCH ×2 (11:29→21:35)
[2021-02-28] MEDS ORDERED: Norepinephrine 16MCG/ML IVPRE 4,000 MCG/250 ML BAG IV ONE (13:39)
[2021-02-28] MEDS: Norepinephrine 16MCG/ML IVPRE 4,000 MCG/250 ML BAG IV SCH (13:40)
[2021-02-28] MEDS ORDERED: Norepinephrine 16MCG/ML IVPRE 4,000 MCG/250 ML BAG IV SCH (15:00)
[2021-02-28] MEDS ORDERED: Polyethylene Glycol 3350 17 GM PACKET PO PRN (15:49)
[2021-02-28] MEDS ORDERED: Docusate LIQ 100 MG/10 ML UDC PO PRN (15:49)
[2021-02-28] MEDS: Azithromycin 500 mg/250 ml NS 500 MG/250 ML BAG IVPB SCH (16:47)
[2021-02-28 17:35] LABS: Calcium 7.8 mg/dL (8.6-10.3); EGFR African American 20.1 (>60); EGFR Non-African American 16.6 (>60); Potassium 3.6 mmol/L (3.5-5.0)
[2021-02-28] MEDS: Dextrose 50% Syringe 50 ml 25 GM/50 ML SYRINGE IV PUSH PRN ×2 (17:50→21:44)
[2021-02-28] MEDS ORDERED: D5LR 1000 ml BAG 1,000 ML IV SCH (18:00)
[2021-03-01] MEDS: Chlorhexidine MOUTHWASH 0.12% 15 ML UDC TOPICAL SCH ×6 (01:03→20:48)
[2021-03-01] MEDS: Dextrose 50% Syringe 50 ml 25 GM/50 ML SYRINGE IV PUSH PRN ×2 (01:03→07:49)
[2021-03-01] MEDS: LORazepam 2 mg VIAL 1 ml IV PUSH PRN ×2 (02:26→08:21)
[2021-03-01] MEDS: Dexmedetomidine 1,000 MCG in NS 0.9% 250 ml 240 ML IV SCH ×2 (02:43→14:49)
[2021-03-01 05:26] LABS: Hematocrit 29 % (35-47); Mean Corpuscular HGB Conc 34 g/dL (31-36); Mean Corpuscular Hemoglobin 32 pg (27-31); Mean Corpuscular Volume 95 fL (80-97); Mean Platelet Volume 8.5 fL (7.4-10.4); Platelet Count 140 10^3/uL (150-450); Red Blood Count 3.08 10^6 /uL (3.70-4.87); Red Cell Distribution Width 14 % (10-15); White Blood Count 18.5 10^3/uL (3.5-10.8)
[2021-03-01 05:33] LABS: INR 1.13 (0.86-1.15)
[2021-03-01 05:37] LABS: Magnesium 2.1 mg/dL (1.9-2.7); Phosphorus 3.2 mg/dL (2.5-5.0)
[2021-03-01 07:22] LABS: ABS Eosinophils 0.1 10^3/ul (0-0.6); ABS Lymphocytes 7.3 10^3/ul (1.0-4.8); ABS Monocytes 0.8 10^3/ul (0-0.8); ABS Neutrophils 10.2 10^3/ul (1.5-7.7); ABS Nucleated RBC 0.1 10^3/ul; Eosinophil % 0.6 %; Lymphocyte % 39.4 %; Nucleated Red Blood Cells % 0.2
[2021-03-01 07:24] LABS: Calcium 7.6 mg/dL (8.6-10.3); EGFR African American 14.9 (>60); EGFR Non-African American 12.3 (>60); Potassium 3.5 mmol/L (3.5-5.0)
[2021-03-01] MEDS ORDERED: Potassium Chloride LIQUID 20 MEQ/15 ML LIQUID PO ONE (07:40)
[2021-03-01] MEDS ORDERED: D5LR 1000 ml BAG 1,000 ML IV SCH ×2 (07:40→14:00)
[2021-03-01] MEDS ORDERED: Methylnaltrexone SQ (NF) 12 MG/0.6 ML VIAL SUBCUT ONE (08:51)
[2021-03-01] MEDS ORDERED: Methylnaltrexone 150 MG TAB PO SCH (09:00)
[2021-03-01] MEDS: Linezolid 600 MG IVPREMIX(*) 600 MG/300 ML BAG IVPB SCH ×2 (09:04→19:43)
[2021-03-01] MEDS: Heparin 5000 UNITS/ML 1 mL VIAL SUBCUT SCH ×2 (09:05→19:42)
[2021-03-01] MEDS: Pantoprazole VIAL 40 MG VIAL IV SCH (09:05)
[2021-03-01 09:10] LABS: Albumin 2.5 g/dL (3.2-5.2); Globulin 2.6 g/dL (2-4); Total Bilirubin 1.2 mg/dL (0.2-1.0); Total Protein 5.1 g/dL (6.4-8.9)
[2021-03-01 09:26] LABS: Amphetamine by LC-MS/MS, U Negative ng/mL (Cutoff: 25); MDA,Ecstasy metabolite LC-MS Negative ng/mL (Cutoff: 25); MDMA(Ecstasy)by LC-MS/MS,U Negative ng/mL (Cutoff: 25); Methamphetamine by LC-MS/MS, U Negative ng/mL (Cutoff: 25); Phentermine-by LC-MS/MS, U Negative ng/mL (Cutoff: 25); Pseudo/Ephedrine LC-MS/MS, U Present ng/mL (Cutoff: 25); Urine Amphetamines Interp Positive.
[2021-03-01] MEDS ORDERED: levETIRAcetam IV 2,000 MG in NS 0.9% 100 ml BAG 100 ML IVPB ONE (10:30)
[2021-03-01] MEDS: ZOSYN 3.375 GM Q12H per EXTENDED INFUSION IV SCH ×2 (11:07→20:48)
[2021-03-01 14:07] LABS: Ur Benzoylecgonine Confirm 10621 ng/mL (Cutoff: 50); Urine Cocaine Confirm (GC/MS) Negative ng/mL (Cutoff: 50); Urine Cocaine Interpretation Positive.
[2021-03-01] MEDS ORDERED: Etomidate 20 mg/10 ml 2 MG/ML 10 ml VIAL IV ONE (14:19)
[2021-03-01] MEDS ORDERED: TPN 24 HR with Sodium Chloride CONC. 4 MEQ/ML 100 MEQ, Potassium Chloride TPN 50 MEQ, P... CENT\\PICC SCH (17:00)
[2021-03-01] MEDS: TPN 24 HR with Dextrose 50% Water 500 ML, Amino Acid Infusion 10% 850 ML, Sterile Water... CENTR SCH (17:01)
[2021-03-01] MEDS: Azithromycin 500 mg/250 ml NS 500 MG/250 ML BAG IVPB SCH (17:01)
[2021-03-01 17:18] LABS: Calcium 7.5 mg/dL (8.6-10.3); EGFR African American 11.2 (>60); EGFR Non-African American 9.3 (>60); Potassium 3.5 mmol/L (3.5-5.0)
[2021-03-01 19:07] LABS: Urine Appearance Cloudy; Urine Bilirubin Negative (Negative); Urine Blood 3+ (Negative); Urine Color Amber; Urine Glucose Negative (Negative); Urine Ketones Negative (Negative); Urine Nitrite Negative (Negative); Urine Protein 1+(30 mg/dL) (Negative); Urine Specific Gravity 1.016 (1.002-1.030); Urine Urobilinogen Negative (Negative)
[2021-03-01 19:14] LABS: Urine Bacteria 1+ (Absent); Urine Red Blood Cell 3+(>10/hpf) (Absent); Urine Squamous Epithelial Cell Present (Absent); Urine White Blood Cell 3+(>20/hpf) (Absent); Urine Yeast Present (Absent)
[2021-03-02] MEDS: Chlorhexidine MOUTHWASH 0.12% 15 ML UDC TOPICAL SCH ×6 (01:51→20:02)
[2021-03-02 04:39] LABS: Hematocrit 31 % (35-47); Hemoglobin 10.3 g/dL (12.0-16.0); Mean Corpuscular HGB Conc 34 g/dL (31-36); Mean Corpuscular Hemoglobin 32 pg (27-31); Mean Corpuscular Volume 95 fL (80-97); Mean Platelet Volume 9.3 fL (7.4-10.4); Platelet Count 103 10^3/uL (150-450); Red Blood Count 3.24 10^6 /uL (3.70-4.87); Red Cell Distribution Width 14 % (10-15); White Blood Count 20.7 10^3/uL (3.5-10.8)
[2021-03-02 04:55] LABS: Albumin 2.3 g/dL (3.2-5.2); Albumin/Globulin Ratio 0.9 (1-3); Calcium 7.9 mg/dL (8.6-10.3); EGFR African American 10.1 (>60); EGFR Non-African American 8.3 (>60); Globulin 2.7 g/dL (2-4); Magnesium 2.3 mg/dL (1.9-2.7); Potassium 3.7 mmol/L (3.5-5.0); Total Bilirubin 1.2 mg/dL (0.2-1.0)
[2021-03-02] MEDS: Heparin 1,000 UNIT/ML 10 ml (10,000 UNITS) CATHLAB/DIALYSIS DIALYSIS PRN ×4 (06:30→09:40)
[2021-03-02 07:05] LABS: ABS Lymphocytes 6.2 10^3/ul (1.0-4.8); ABS Monocytes 0.5 10^3/ul (0-0.8); ABS Neutrophils 13.9 10^3/ul (1.5-7.7); Eosinophil % 0.2 %; Lymphocyte % 30.1 %; Nucleated Red Blood Cells % 0.1
[2021-03-02] MEDS ORDERED: Ondansetron 4 mg VIAL 2 MG/ML 2 ml VIAL IV PRN (09:08)
[2021-03-02] MEDS ORDERED: Ondansetron 4 mg VIAL 2 MG/ML 2 ml VIAL ONE (09:09)
[2021-03-02] MEDS: levETIRAcetam 1000MG IVPREMIX 1,000 MG/100 ML BAG IVPB SCH (09:14)
[2021-03-02] MEDS: Pantoprazole VIAL 40 MG VIAL IV SCH (09:14)
[2021-03-02] MEDS: Heparin 5000 UNITS/ML 1 mL VIAL SUBCUT SCH ×2 (09:14→19:18)
[2021-03-02] MEDS: Linezolid 600 MG IVPREMIX(*) 600 MG/300 ML BAG IVPB SCH ×2 (09:36→19:18)
[2021-03-02 11:14] LABS: Alpha OH Triazolam by LC-MS/MS Negative ng/mL (Cutoff: 10); Alpha-Hydroxyalprazolam LC-MS Negative ng/mL (Cutoff: 10); Alpha-OH Midazolam LC-MS/MS 2541 ng/mL (Cutoff: 10); Alprazolam LC-MS/MS Negative ng/mL (Cutoff: 10); Benzodiazepines Interpretation Positive.; Chlordiazepoxide by LC-MS/MS Negative ng/mL (Cutoff: 10); Clobazam LC-MS/MS Negative ng/mL (Cutoff: 10); Lorazepam by LC-MS/MS 143 ng/mL (Cutoff: 10); Oxazepam by LC-MS/MS 26 ng/mL (Cutoff: 10); Prazepam by LC-MS/MS Negative ng/mL (Cutoff: 10); Temazepam by LC-MS/MS 53 ng/mL (Cutoff: 10); Triazolam by LC-MS/MS Negative ng/mL (Cutoff: 10); Zolpidem Phenyl-4-Carboxylic Negative ng/mL (Cutoff: 10); Zolpidem by LC-MS/MS Negative ng/mL (Cutoff: 10)
[2021-03-02] MEDS: LORazepam 2 mg VIAL 1 ml IV PUSH PRN (11:30)
[2021-03-02] MEDS: LORazepam 2 mg VIAL 1 ml ONE ×2 (12:10→13:59)
[2021-03-02] MEDS ORDERED: LEVETIRACETAM IVPB ONE (13:00)
[2021-03-02] MEDS ORDERED: NS 0.9% IVPB ONE (13:00)
[2021-03-02] MEDS: ZOSYN 3.375 GM Q12H per EXTENDED INFUSION IV SCH ×2 (13:49→14:08)
[2021-03-02] MEDS ORDERED: LORazepam 2 mg VIAL 1 ml IV PUSH PRN (14:01)
[2021-03-02] MEDS: methylPREDNISolone SOD 40 mg/ml 1 ml VIAL IV SCH (14:04)
[2021-03-02 16:53] LABS: Calcium 7.9 mg/dL (8.6-10.3); EGFR African American 15.7 (>60); Potassium 3.9 mmol/L (3.5-5.0)
[2021-03-02] MEDS: TPN 24 HR with Dextrose 50% Water 500 ML, Amino Acid Infusion 10% 850 ML, Sterile Water... CENTR SCH (17:39)
[2021-03-03] MEDS: Chlorhexidine MOUTHWASH 0.12% 15 ML UDC TOPICAL SCH ×6 (01:28→20:15)
[2021-03-03] MEDS: ZOSYN 3.375 GM Q12H per EXTENDED INFUSION IV SCH ×2 (01:33→14:05)
[2021-03-03 04:47] LABS: Albumin 2.3 g/dL (3.2-5.2); Albumin/Globulin Ratio 0.9 (1-3); Calcium 8.2 mg/dL (8.6-10.3); EGFR Non-African American 10.7 (>60); Globulin 2.7 g/dL (2-4); Magnesium 2.3 mg/dL (1.9-2.7); Phosphorus 3.8 mg/dL (2.5-5.0); Potassium 3.9 mmol/L (3.5-5.0)
[2021-03-03 04:58] LABS: ABS Eosinophils 0.1 10^3/ul (0-0.6); ABS Monocytes 0.7 10^3/ul (0-0.8); ABS Neutrophils 15.3 10^3/ul (1.5-7.7); Eosinophil % 0.3 %; Hematocrit 28 % (35-47); Hemoglobin 9.4 g/dL (12.0-16.0); Lymphocyte % 30.3 %; Mean Corpuscular HGB Conc 34 g/dL (31-36); Mean Corpuscular Hemoglobin 32 pg (27-31); Mean Corpuscular Volume 94 fL (80-97); Mean Platelet Volume 9.7 fL (7.4-10.4); Platelet Count 92 10^3/uL (150-450); Red Blood Count 2.94 10^6 /uL (3.70-4.87); Red Cell Distribution Width 14 % (10-15); White Blood Count 23.1 10^3/uL (3.5-10.8)
[2021-03-03] MEDS: LORazepam 2 mg VIAL 1 ml IV PUSH PRN (05:10)
[2021-03-03] MEDS: Heparin 5000 UNITS/ML 1 mL VIAL SUBCUT SCH (07:25)
[2021-03-03] MEDS: Linezolid 600 MG IVPREMIX(*) 600 MG/300 ML BAG IVPB SCH (09:05)
[2021-03-03] MEDS: levETIRAcetam 1000MG IVPREMIX 1,000 MG/100 ML BAG IVPB SCH (09:05)
[2021-03-03] MEDS: Pantoprazole VIAL 40 MG VIAL IV SCH (09:06)
[2021-03-03] MEDS: methylPREDNISolone SOD 40 mg/ml 1 ml VIAL IV SCH (09:06)
[2021-03-03] MEDS ORDERED: Acetaminophen IV 1 GM/100ML 100 ML IV ONE (10:30)
[2021-03-03 16:13] LABS: Calcium 8.5 mg/dL (8.6-10.3); EGFR African American 11.2 (>60); EGFR Non-African American 9.3 (>60); Potassium 4.5 mmol/L (3.5-5.0)
[2021-03-03] MEDS: TPN 24 HR with Dextrose 50% Water 500 ML, Amino Acid Infusion 10% 850 ML, Sterile Water... CENTR SCH (17:16)
[2021-03-04] MEDS: ZOSYN 3.375 GM Q12H per EXTENDED INFUSION IV SCH ×2 (01:23→14:17)
[2021-03-04] MEDS: Chlorhexidine MOUTHWASH 0.12% 15 ML UDC TOPICAL SCH ×6 (01:23→21:50)
[2021-03-04 04:16] LABS: Hematocrit 29 % (35-47); Hemoglobin 9.6 g/dL (12.0-16.0); Mean Corpuscular HGB Conc 34 g/dL (31-36); Mean Corpuscular Hemoglobin 32 pg (27-31); Mean Corpuscular Volume 95 fL (80-97); Mean Platelet Volume 9.2 fL (7.4-10.4); Platelet Count 128 10^3/uL (150-450); Red Blood Count 2.99 10^6 /uL (3.70-4.87); Red Cell Distribution Width 14 % (10-15); White Blood Count 30.5 10^3/uL (3.5-10.8)
[2021-03-04 04:33] LABS: Albumin 2.4 g/dL (3.2-5.2); Albumin/Globulin Ratio 0.9 (1-3); Calcium 8.8 mg/dL (8.6-10.3); EGFR African American 9.9 (>60); EGFR Non-African American 8.2 (>60); Globulin 2.6 g/dL (2-4); Magnesium 2.5 mg/dL (1.9-2.7); Potassium 4.5 mmol/L (3.5-5.0); Total Bilirubin 1.1 mg/dL (0.2-1.0)
[2021-03-04 04:34] LABS: ABS Basophils 0.1 10^3/ul (0-0.2); ABS Lymphocytes 8.7 10^3/ul (1.0-4.8); ABS Monocytes 1.2 10^3/ul (0-0.8); ABS Neutrophils 20.5 10^3/ul (1.5-7.7); Eosinophil % 0.1 %; Lymphocyte % 28.7 %
[2021-03-04] MEDS: LORazepam 2 mg VIAL 1 ml IV PUSH PRN ×2 (07:38→11:19)
[2021-03-04] MEDS: methylPREDNISolone SOD 40 mg/ml 1 ml VIAL IV SCH (07:41)
[2021-03-04] MEDS: Pantoprazole VIAL 40 MG VIAL IV SCH (07:41)
[2021-03-04] MEDS: levETIRAcetam 1000MG IVPREMIX 1,000 MG/100 ML BAG IVPB SCH (07:41)
[2021-03-04] MEDS ORDERED: Anidulafungin 200 MG in NS 0.9% 250 ml 200 ML IVPB ONE (09:30)
[2021-03-04] MEDS: hydrALAZINE 20 mg/ml 1 ML Vial IV IV SLOW PU PRN ×2 (10:49→20:36)
[2021-03-04] MEDS: fentaNYL 100 mcg/2 ml 50 MCG/ML VIAL IV SLOW PU PRN (11:15)
[2021-03-04] MEDS ORDERED: Lorazepam PYXIS KEY ONE (11:17)
[2021-03-04] MEDS ORDERED: LORazepam 2 mg VIAL 1 ml ONE (11:17)
[2021-03-04] MEDS: fentaNYL 100 mcg/2 ml 50 MCG/ML VIAL ONE ×2 (11:19→11:28)
[2021-03-04] MEDS ORDERED: fentaNYL 100 mcg/2 ml 50 MCG/ML VIAL ONE (11:26)
[2021-03-04] MEDS: Dexmedetomidine 1,000 MCG in NS 0.9% 250 ml 240 ML IV SCH (11:32)
[2021-03-04] MEDS ORDERED: Rocuronium 50 mg VIAL 10 mg/ml 5 ml VIAL (50 mg) ONE (11:34)
[2021-03-04] MEDS: Metoprolol Tartrate 5 mg VIAL 5 ml VIAL (1 mg/ml) IV PRN ×2 (11:58→18:23)
[2021-03-04 16:37] LABS: Calcium 8.8 mg/dL (8.6-10.3); EGFR African American 8.7 (>60); EGFR Non-African American 7.2 (>60)
[2021-03-05] MEDS: Dextrose 50% Syringe 50 ml 25 GM/50 ML SYRINGE IV PUSH PRN ×4 (00:08→15:35)
[2021-03-05] MEDS: fentaNYL 100 mcg/2 ml 50 MCG/ML VIAL IV SLOW PU PRN (01:17)
[2021-03-05] MEDS: Chlorhexidine MOUTHWASH 0.12% 15 ML UDC TOPICAL SCH ×6 (01:18→22:29)
[2021-03-05] MEDS: ZOSYN 3.375 GM Q12H per EXTENDED INFUSION IV SCH ×2 (01:21→14:25)
[2021-03-05 04:33] LABS: Hematocrit 27 % (35-47); Hemoglobin 9.1 g/dL (12.0-16.0); Mean Corpuscular HGB Conc 34 g/dL (31-36); Mean Corpuscular Hemoglobin 32 pg (27-31); Mean Corpuscular Volume 94 fL (80-97); Mean Platelet Volume 9.2 fL (7.4-10.4); Platelet Count 158 10^3/uL (150-450); Red Blood Count 2.83 10^6 /uL (3.70-4.87); Red Cell Distribution Width 14 % (10-15); White Blood Count 31.4 10^3/uL (3.5-10.8)
[2021-03-05 04:49] LABS: ABS Basophils 0.1 10^3/ul (0-0.2); ABS Monocytes 1.2 10^3/ul (0-0.8); ABS Neutrophils 21.9 10^3/ul (1.5-7.7); Eosinophil % 0.1 %; Lymphocyte % 25.7 %
[2021-03-05 04:59] LABS: Albumin 2.3 g/dL (3.2-5.2); Albumin/Globulin Ratio 0.9 (1-3); Calcium 8.7 mg/dL (8.6-10.3); Direct Bilirubin 1.2 mg/dL (0.03-0.18); EGFR African American 8.1 (>60); EGFR Non-African American 6.7 (>60); Globulin 2.6 g/dL (2-4); Indirect Bilirubin 0.8 mg/dL (0.3-1.0); Magnesium 2.6 mg/dL (1.9-2.7); Total Protein 4.9 g/dL (6.4-8.9)
[2021-03-05] MEDS: LORazepam 2 mg VIAL 1 ml IV PUSH PRN ×2 (05:37→19:56)
[2021-03-05] MEDS: Dexmedetomidine 1,000 MCG in NS 0.9% 250 ml 240 ML IV SCH ×2 (06:57→20:16)
[2021-03-05] MEDS: Heparin 1,000 UNIT/ML 10 ml (10,000 UNITS) CATHLAB/DIALYSIS DIALYSIS PRN ×4 (08:24→11:46)
[2021-03-05] MEDS ORDERED: Dextrose 50% Syringe 50 ml 25 GM/50 ML SYRINGE ONE ×2 (08:25→15:32)
[2021-03-05] MEDS: Pantoprazole VIAL 40 MG VIAL IV SCH (12:08)
[2021-03-05] MEDS: methylPREDNISolone SOD 40 mg/ml 1 ml VIAL IV SCH (12:09)
[2021-03-05] MEDS: levETIRAcetam 1000MG IVPREMIX 1,000 MG/100 ML BAG IVPB SCH (12:10)
[2021-03-05] MEDS: Anidulafungin 100 MG in NS 0.9% 100 ml BAG 100 ML IVPB SCH (12:31)
[2021-03-05] MEDS ORDERED: Acetaminophen IV 1 GM/100ML 100 ML IV ONE (15:18)
[2021-03-05] MEDS ORDERED: Buffered Lidocaine 1% SYRIN 1 ml INTRADERM ONE (17:09)
[2021-03-06] MEDS: fentaNYL 100 mcg/2 ml 50 MCG/ML VIAL IV SLOW PU PRN ×2 (00:17→19:36)
[2021-03-06] MEDS: ZOSYN 3.375 GM Q12H per EXTENDED INFUSION IV SCH ×2 (01:55→15:02)
[2021-03-06] MEDS: Chlorhexidine MOUTHWASH 0.12% 15 ML UDC TOPICAL SCH ×5 (01:57→19:39)
[2021-03-06] MEDS: Acetaminophen IV 1 GM/100ML 100 ML IV PRN ×2 (02:38→19:39)
[2021-03-06 04:48] LABS: Hematocrit 22 % (35-47); Hemoglobin 7.5 g/dL (12.0-16.0); Mean Corpuscular HGB Conc 34 g/dL (31-36); Mean Corpuscular Hemoglobin 32 pg (27-31); Mean Corpuscular Volume 95 fL (80-97); Mean Platelet Volume 8.9 fL (7.4-10.4); Platelet Count 192 10^3/uL (150-450); Red Blood Count 2.35 10^6 /uL (3.70-4.87); Red Cell Distribution Width 14 % (10-15); White Blood Count 25.7 10^3/uL (3.5-10.8)
[2021-03-06 05:02] LABS: Calcium 7.8 mg/dL (8.6-10.3); EGFR African American 10.9 (>60); Magnesium 2.1 mg/dL (1.9-2.7); Potassium 4.1 mmol/L (3.5-5.0)
[2021-03-06 06:13] LABS: Basophilic Stippling 1+; Polychromasia 1+
[2021-03-06 06:15] LABS: Dohle Bodies Present; Smudge Cells Present
[2021-03-06 06:16] LABS: ABS Eosinophils 0.1 10^3/ul (0-0.6); ABS Lymphocytes 6.8 10^3/ul (1.0-4.8); ABS Monocytes 1.7 10^3/ul (0-0.8); Eosinophil % 0.6 %; Lymphocyte % 26.4 %; Nucleated Red Blood Cells % 0.1
[2021-03-06 06:24] LABS: RBC Morphology Normal (Normal)
[2021-03-06] MEDS: Dexmedetomidine 1,000 MCG in NS 0.9% 250 ml 240 ML IV SCH ×2 (07:43→21:28)
[2021-03-06] MEDS: Anidulafungin 100 MG in NS 0.9% 100 ml BAG 100 ML IVPB SCH (07:45)
[2021-03-06] MEDS: methylPREDNISolone SOD 40 mg/ml 1 ml VIAL IV SCH (07:45)
[2021-03-06] MEDS: Pantoprazole VIAL 40 MG VIAL IV SCH ×2 (07:45→20:41)
[2021-03-06] MEDS: Dextrose 50% Syringe 50 ml 25 GM/50 ML SYRINGE IV PUSH PRN ×2 (08:29→16:27)
[2021-03-06] MEDS: levETIRAcetam 1000MG IVPREMIX 1,000 MG/100 ML BAG IVPB SCH (10:04)
[2021-03-06] MEDS ORDERED: Pantoprazole VIAL 40 MG VIAL IV SCH (12:00)
[2021-03-06 12:15] LABS: Hematocrit 25 % (35-47); Hemoglobin 8.5 g/dL (12.0-16.0)
[2021-03-06] MEDS: Heparin 1,000 UNIT/ML 10 ml (10,000 UNITS) CATHLAB/DIALYSIS DIALYSIS PRN (14:18)
[2021-03-06] MEDS ORDERED: fentaNYL 100 mcg/2 ml 50 MCG/ML VIAL ONE (16:18)
[2021-03-06] MEDS ORDERED: Midazolam 10 mg/10 ml VIAL 1 mg/ml 10 ml VIAL (10 mg) ONE (16:18)
[2021-03-06] MEDS ORDERED: Dextrose 50% Syringe 50 ml 25 GM/50 ML SYRINGE ONE (16:27)
[2021-03-06 19:59] LABS: Hematocrit 22 % (35-47); Hemoglobin 7.7 g/dL (12.0-16.0)
[2021-03-06] MEDS: Metoclopramide 5 MG/ML VIAL (10 mg) IV SLOW PU SCH (20:41)
[2021-03-06 21:36] LABS: HIT ELISA < 0.075 OD (<0.400); Heparin PF4 Antibody Interp Negative (Negative)
[2021-03-07] MEDS: Chlorhexidine MOUTHWASH 0.12% 15 ML UDC TOPICAL SCH ×7 (00:12→21:42)
[2021-03-07] MEDS: fentaNYL 100 mcg/2 ml 50 MCG/ML VIAL IV SLOW PU PRN ×2 (01:40→21:01)
[2021-03-07] MEDS: ZOSYN 3.375 GM Q12H per EXTENDED INFUSION IV SCH (01:53)
[2021-03-07 01:56] LABS: Hematocrit 23 % (35-47); Hemoglobin 7.8 g/dL (12.0-16.0)
[2021-03-07] MEDS: Acetaminophen IV 1 GM/100ML 100 ML IV PRN ×3 (03:01→17:35)
[2021-03-07 05:00] LABS: Hematocrit 22 % (35-47); Hemoglobin 7.3 g/dL (12.0-16.0); Mean Corpuscular HGB Conc 34 g/dL (31-36); Mean Corpuscular Hemoglobin 32 pg (27-31); Mean Corpuscular Volume 94 fL (80-97); Mean Platelet Volume 8.6 fL (7.4-10.4); Platelet Count 301 10^3/uL (150-450); Red Cell Distribution Width 14 % (10-15); White Blood Count 25.8 10^3/uL (3.5-10.8)
[2021-03-07] MEDS: Metoclopramide 5 MG/ML VIAL (10 mg) IV SLOW PU SCH ×2 (05:14→11:59)
[2021-03-07 05:19] LABS: Albumin 2.1 g/dL (3.2-5.2); Albumin/Globulin Ratio 0.8 (1-3); Calcium 7.4 mg/dL (8.6-10.3); EGFR African American 14.8 (>60); EGFR Non-African American 12.2 (>60); Globulin 2.5 g/dL (2-4); Magnesium 1.8 mg/dL (1.9-2.7); Potassium 3.8 mmol/L (3.5-5.0); Total Bilirubin 1.4 mg/dL (0.2-1.0); Total Protein 4.6 g/dL (6.4-8.9)
[2021-03-07 05:55] LABS: ABS Eosinophils 0.1 10^3/ul (0-0.6); ABS Lymphocytes 7.5 10^3/ul (1.0-4.8); ABS Monocytes 1.7 10^3/ul (0-0.8); ABS Neutrophils 16.4 10^3/ul (1.5-7.7); Eosinophil % 0.5 %; Lymphocyte % 29.1 %
[2021-03-07] MEDS ORDERED: Dextrose 50% Syringe 50 ml 25 GM/50 ML SYRINGE ONE (09:13)
[2021-03-07] MEDS: Dextrose 50% Syringe 50 ml 25 GM/50 ML SYRINGE IV PUSH PRN (09:14)
[2021-03-07] MEDS: Heparin 1,000 UNIT/ML 10 ml (10,000 UNITS) CATHLAB/DIALYSIS DIALYSIS PRN (09:25)
[2021-03-07] MEDS ORDERED: Lorazepam PYXIS KEY PRN (09:31)
[2021-03-07] MEDS ORDERED: LORazepam 2 mg VIAL 1 ml IV PUSH PRN (09:31)
[2021-03-07] MEDS ORDERED: Lorazepam PYXIS KEY ONE (09:34)
[2021-03-07] MEDS ORDERED: LORazepam 2 mg VIAL 1 ml ONE (09:36)
[2021-03-07] MEDS: Anidulafungin 100 MG in NS 0.9% 100 ml BAG 100 ML IVPB SCH (09:38)
[2021-03-07] MEDS: levETIRAcetam 1000MG IVPREMIX 1,000 MG/100 ML BAG IVPB SCH (09:38)
[2021-03-07] MEDS: Pantoprazole VIAL 40 MG VIAL IV SCH ×2 (09:38→21:42)
[2021-03-07] MEDS: methylPREDNISolone SOD 40 mg/ml 1 ml VIAL IV SCH (09:39)
[2021-03-07] MEDS: Dexmedetomidine 1,000 MCG in NS 0.9% 250 ml 240 ML IV SCH (11:01)
[2021-03-07] MEDS ORDERED: Cefepime ADVAN 1 GM in NS 0.9% 50 ML 50 ML IVPB SCH (12:00)
[2021-03-07] MEDS ORDERED: Cefepime 1 GM in Dextrose 1 GM/50 ML BAG IV SCH (12:03)
[2021-03-07] MEDS: DOXYcycline 100 MG in NS 0.9% 250 ml 250 ML IVPB SCH (12:19)
[2021-03-07] MEDS: Cefepime 1 GM in Dextrose 1 GM/50 ML BAG IV SCH (12:19)
[2021-03-07 15:15] LABS: Hematocrit 24 % (35-47); Hemoglobin 7.8 g/dL (12.0-16.0); Mean Corpuscular HGB Conc 33 g/dL (31-36); Mean Corpuscular Hemoglobin 31 pg (27-31); Mean Corpuscular Volume 95 fL (80-97); Mean Platelet Volume 8.8 fL (7.4-10.4); Platelet Count 419 10^3/uL (150-450); Red Blood Count 2.48 10^6 /uL (3.70-4.87); Red Cell Distribution Width 14 % (10-15); White Blood Count 31.3 10^3/uL (3.5-10.8)
[2021-03-07 15:19] LABS: ABS Basophils 0.1 10^3/ul (0-0.2); ABS Monocytes 1.8 10^3/ul (0-0.8); ABS Neutrophils 21.4 10^3/ul (1.5-7.7); Eosinophil % 0.1 %; Lymphocyte % 25.7 %
[2021-03-07] MEDS: LORazepam 2 mg VIAL 1 ml IV PUSH PRN ×2 (17:34→22:45)
[2021-03-07] MEDS: Saline FLUSH-CENTRAL 10 ML SYRINGE CENT\\PICC SCH (22:46)
[2021-03-08] MEDS: DOXYcycline 100 MG in NS 0.9% 250 ml 250 ML IVPB SCH ×3 (00:09→23:00)
[2021-03-08] MEDS: Cefepime 1 GM in Dextrose 1 GM/50 ML BAG IV SCH ×2 (00:11→12:31)
[2021-03-08] MEDS: Chlorhexidine MOUTHWASH 0.12% 15 ML UDC TOPICAL SCH ×5 (00:44→17:55)
[2021-03-08] MEDS: Metoprolol Tartrate 5 mg VIAL 5 ml VIAL (1 mg/ml) IV PRN ×2 (00:44→09:51)
[2021-03-08] MEDS: fentaNYL 100 mcg/2 ml 50 MCG/ML VIAL IV SLOW PU PRN ×3 (00:52→09:49)
[2021-03-08] MEDS: Acetaminophen IV 1 GM/100ML 100 ML IV PRN (01:10)
[2021-03-08 04:35] LABS: Hematocrit 23 % (35-47); Hemoglobin 7.6 g/dL (12.0-16.0); Mean Corpuscular HGB Conc 33 g/dL (31-36); Mean Corpuscular Hemoglobin 31 pg (27-31); Mean Corpuscular Volume 96 fL (80-97); Platelet Count 566 10^3/uL (150-450); Red Blood Count 2.42 10^6 /uL (3.70-4.87); Red Cell Distribution Width 14 % (10-15); White Blood Count 31.4 10^3/uL (3.5-10.8)
[2021-03-08 04:53] LABS: Blood Urea Nitrogen 32 mg/dL (6-24); CO2 Carbon Dioxide 18 mmol/L (22-32); Calcium 7.5 mg/dL (8.6-10.3); Chloride 107 mmol/L (101-111); EGFR African American 15.7 (>60); Glucose 95 mg/dL (70-100); Magnesium 1.7 mg/dL (1.9-2.7); Sodium 135 mmol/L (135-145)
[2021-03-08 05:16] LABS: ABS Basophils 0.2 10^3/ul (0-0.2); ABS Lymphocytes 9.7 10^3/ul (1.0-4.8); ABS Monocytes 1.9 10^3/ul (0-0.8); ABS Neutrophils 19.6 10^3/ul (1.5-7.7); Eosinophil % 0.1 %
[2021-03-08 05:18] LABS: Anion Gap 10 mmol/L (2-11)
[2021-03-08] MEDS ORDERED: Magnesium Sulfate IV 3 GM in NS 0.9% 100 ml BAG 100 ML IVPB ONE (05:21)
[2021-03-08] MEDS: hydrALAZINE 20 mg/ml 1 ML Vial IV IV SLOW PU PRN ×2 (06:30→19:08)
[2021-03-08] MEDS: levETIRAcetam 1000MG IVPREMIX 1,000 MG/100 ML BAG IVPB SCH (08:07)
[2021-03-08] MEDS: LORazepam 2 mg VIAL 1 ml IV PUSH PRN (08:07)
[2021-03-08] MEDS: Pantoprazole VIAL 40 MG VIAL IV SCH ×2 (08:07→21:22)
[2021-03-08] MEDS: Saline FLUSH-CENTRAL 10 ML SYRINGE CENT\\PICC SCH ×2 (08:16→21:22)
[2021-03-08] MEDS ORDERED: Albuterol/Ipratropium NEB.SOL (2.5/0.5 MG) 3 ML NEB.SOLN INH ONE (12:05)
[2021-03-08] MEDS ORDERED: Albuterol/Ipratropium NEB.SOL (2.5/0.5 MG) 3 ML NEB.SOLN ONE (12:06)
[2021-03-08] MEDS ORDERED: Morphine 2 MG/ML SYRINGE IV ONE (21:01)
[2021-03-08] MEDS ORDERED: Furosemide 40 mg/4 ml IV VIAL IV SLOW PU ONE (21:26)
[2021-03-08 21:51] LABS: PCO2 Arterial 27 mmHg (35-45); PO2 Arterial 77 mmHg (80-100)
[2021-03-09] MEDS: Cefepime 1 GM in Dextrose 1 GM/50 ML BAG IV SCH ×2 (00:42→12:52)
[2021-03-09 04:35] LABS: Hematocrit 25 % (35-47); Hemoglobin 8.1 g/dL (12.0-16.0); Mean Corpuscular HGB Conc 33 g/dL (31-36); Mean Corpuscular Hemoglobin 32 pg (27-31); Mean Corpuscular Volume 96 fL (80-97); Mean Platelet Volume 8.2 fL (7.4-10.4); Platelet Count 705 10^3/uL (150-450); Red Blood Count 2.55 10^6 /uL (3.70-4.87); Red Cell Distribution Width 15 % (10-15); White Blood Count 33.1 10^3/uL (3.5-10.8)
[2021-03-09 04:48] LABS: Calcium 8.3 mg/dL (8.6-10.3); EGFR African American 11.3 (>60); EGFR Non-African American 9.4 (>60); Magnesium 2.6 mg/dL (1.9-2.7); Potassium 3.7 mmol/L (3.5-5.0)
[2021-03-09 04:54] LABS: ABS Basophils 0.2 10^3/ul (0-0.2); ABS Eosinophils 0.2 10^3/ul (0-0.6); ABS Lymphocytes 11.2 10^3/ul (1.0-4.8); ABS Neutrophils 19.6 10^3/ul (1.5-7.7); Eosinophil % 0.5 %; Lymphocyte % 33.7 %; Nucleated Red Blood Cells % 0.1
[2021-03-09 07:43] LABS: Phosphorus 5.5 mg/dL (2.5-5.0)
[2021-03-09] MEDS: Heparin 1,000 UNIT/ML 10 ml (10,000 UNITS) CATHLAB/DIALYSIS DIALYSIS PRN (09:41)
[2021-03-09] MEDS: Pantoprazole VIAL 40 MG VIAL IV SCH ×2 (11:11→19:59)
[2021-03-09] MEDS: levETIRAcetam 1000MG IVPREMIX 1,000 MG/100 ML BAG IVPB SCH (11:16)
[2021-03-09] MEDS: Labetalol IV 5 MG/ML 20 ml VIAL IV PUSH PRN (12:08)
[2021-03-09] MEDS: Saline FLUSH-CENTRAL 10 ML SYRINGE CENT\\PICC SCH ×2 (12:59→19:59)
[2021-03-09] MEDS ORDERED: Dextrose 50% Syringe 50 ml 25 GM/50 ML SYRINGE IV PUSH ONE (13:05)
[2021-03-09] MEDS ORDERED: Dextrose 50% Syringe 50 ml 25 GM/50 ML SYRINGE ONE (13:06)
[2021-03-09] MEDS: DOXYcycline 100 MG in NS 0.9% 250 ml 250 ML IVPB SCH (13:14)
[2021-03-09] MEDS: Acetaminophen IV 1 GM/100ML 100 ML IV PRN ×2 (13:44→22:33)
[2021-03-09 14:20] LABS: Rapid COVID-19 Molecular Undetected (Undetected)
[2021-03-09 14:27] LABS: Hematocrit 22 % (35-47); Hemoglobin 7.2 g/dL (12.0-16.0); Mean Corpuscular HGB Conc 33 g/dL (31-36); Mean Corpuscular Hemoglobin 32 pg (27-31); Mean Corpuscular Volume 95 fL (80-97); Mean Platelet Volume 8.3 fL (7.4-10.4); Platelet Count 640 10^3/uL (150-450); Red Blood Count 2.29 10^6 /uL (3.70-4.87); Red Cell Distribution Width 14 % (10-15)
[2021-03-09 15:09] LABS: ABS Basophils 0.1 10^3/ul (0-0.2); ABS Monocytes 1.5 10^3/ul (0-0.8); ABS Neutrophils 19.4 10^3/ul (1.5-7.7); Eosinophil % 0.1 %; Lymphocyte % 27.7 %
[2021-03-09] MEDS ORDERED: Midazolam 10 mg/10 ml VIAL 1 mg/ml 10 ml VIAL (10 mg) ONE (15:27)
[2021-03-09] MEDS ORDERED: fentaNYL 100 mcg/2 ml 50 MCG/ML VIAL ONE (15:27)
[2021-03-09] MEDS: D5W 1/2 NS KCl 20 meq 1000 ml 1,000 ML IV SCH (17:45)
[2021-03-09] MEDS: LORazepam 2 mg VIAL 1 ml IV PUSH PRN (18:03)
[2021-03-09] MEDS: metroNIDAZOLE IV 500 MG/100ML 500 MG/100 ML BAG IVPB SCH (22:33)
[2021-03-10 00:12] LABS: Fibrinogen 391.8 mg/dL (110.8-404.3); INR 1.5 (0.86-1.15)
[2021-03-10] MEDS: Cefepime 1 GM in Dextrose 1 GM/50 ML BAG IV SCH (00:39)
[2021-03-10] MEDS: DOXYcycline 100 MG in NS 0.9% 250 ml 250 ML IVPB SCH (00:43)
[2021-03-10 04:32] LABS: Hematocrit 28 % (35-47); Hemoglobin 9.6 g/dL (12.0-16.0); Mean Corpuscular HGB Conc 34 g/dL (31-36); Mean Corpuscular Hemoglobin 32 pg (27-31); Mean Corpuscular Volume 92 fL (80-97); Platelet Count 586 10^3/uL (150-450); Red Blood Count 3.06 10^6 /uL (3.70-4.87); Red Cell Distribution Width 16 % (10-15); White Blood Count 31.7 10^3/uL (3.5-10.8)
[2021-03-10 04:40] LABS: ABS Basophils 0.1 10^3/ul (0-0.2); ABS Eosinophils 0.1 10^3/ul (0-0.6); ABS Lymphocytes 11.1 10^3/ul (1.0-4.8); ABS Monocytes 1.9 10^3/ul (0-0.8); ABS Neutrophils 18.5 10^3/ul (1.5-7.7); ABS Nucleated RBC 0.1 10^3/ul; Eosinophil % 0.3 %; Lymphocyte % 35.1 %; Nucleated Red Blood Cells % 0.2
[2021-03-10 05:26] LABS: Albumin 2.3 g/dL (3.2-5.2); Calcium 7.5 mg/dL (8.6-10.3); Magnesium 1.9 mg/dL (1.9-2.7); Potassium 4.5 mmol/L (3.5-5.0); Total Bilirubin 1.3 mg/dL (0.2-1.0)
[2021-03-10 05:32] LABS: Albumin/Globulin Ratio 0.8 (1-3); EGFR African American 17.1 (>60); EGFR Non-African American 14.2 (>60); Phosphorus 4.2 mg/dL (2.5-5.0); Total Protein 5.3 g/dL (6.4-8.9)
[2021-03-10] MEDS: metroNIDAZOLE IV 500 MG/100ML 500 MG/100 ML BAG IVPB SCH (06:29)
[2021-03-10] MEDS: levETIRAcetam 1000MG IVPREMIX 1,000 MG/100 ML BAG IVPB SCH (07:48)
[2021-03-10] MEDS: Pantoprazole VIAL 40 MG VIAL IV SCH ×2 (07:49→22:41)
[2021-03-10] MEDS: D5W 1/2 NS KCl 20 meq 1000 ml 1,000 ML IV SCH (08:10)
[2021-03-10] MEDS ORDERED: Vancomycin 1,000 MG in NS 0.9% 250 ml 250 ML IVPB ONE (08:20)
[2021-03-10] MEDS ORDERED: Vancomycin per Pharmacy 1 EA NOTE FOLLOW UP SCH (09:00)
[2021-03-10] MEDS ORDERED: Anidulafungin 200 MG in NS 0.9% 250 ml 200 ML IVPB ONE (09:00)
[2021-03-10] MEDS ORDERED: fentaNYL 100 mcg/2 ml 50 MCG/ML VIAL ONE ×2 (09:45→09:51)
[2021-03-10] MEDS: D5LR 1000 ml BAG 1,000 ML IV SCH ×2 (09:51→22:53)
[2021-03-10 10:07] LABS: Venous Bicarbonate HCO3 19.6 mmol/L (24-28)
[2021-03-10] MEDS: Saline FLUSH-CENTRAL 10 ML SYRINGE CENT\\PICC SCH ×2 (10:15→22:41)
[2021-03-10] MEDS: Meropenem 1 GM PREMIX(*) 1 GM/50 ML BAG IV SCH (10:20)
[2021-03-10] MEDS: fentaNYL 100 mcg/2 ml 50 MCG/ML VIAL IV SLOW PU PRN ×2 (10:20→23:17)
[2021-03-10 10:25] LABS: Calcium 7.5 mg/dL (8.6-10.3); EGFR African American 15.7 (>60); Potassium 4.3 mmol/L (3.5-5.0)
[2021-03-10] MEDS: Zinc Oxide 16% PASTE (Butt Paste) 30 gm TUBE TOPICAL SCH ×3 (11:05→22:41)
[2021-03-10] MEDS: Acetaminophen IV 1 GM/100ML 100 ML IV PRN ×2 (11:10→23:22)
[2021-03-10] MEDS ORDERED: Vancomycin - DIALYSIS DOSING 1 EA NOTE FOLLOW UP SCH (16:00)
[2021-03-11 05:00] LABS: Hematocrit 26 % (35-47); Hemoglobin 8.7 g/dL (12.0-16.0); Mean Corpuscular HGB Conc 34 g/dL (31-36); Mean Corpuscular Hemoglobin 31 pg (27-31); Mean Corpuscular Volume 92 fL (80-97); Mean Platelet Volume 7.9 fL (7.4-10.4); Platelet Count 640 10^3/uL (150-450); Red Blood Count 2.83 10^6 /uL (3.70-4.87); Red Cell Distribution Width 16 % (10-15); White Blood Count 32.2 10^3/uL (3.5-10.8)
[2021-03-11 05:16] LABS: Albumin 2.2 g/dL (3.2-5.2); Albumin/Globulin Ratio 0.8 (1-3); Calcium 7.4 mg/dL (8.6-10.3); EGFR African American 14.9 (>60); EGFR Non-African American 12.3 (>60); Globulin 2.9 g/dL (2-4); Magnesium 1.7 mg/dL (1.9-2.7); Phosphorus 4.8 mg/dL (2.5-5.0); Potassium 3.9 mmol/L (3.5-5.0); Total Bilirubin 0.9 mg/dL (0.2-1.0); Total Protein 5.1 g/dL (6.4-8.9)
[2021-03-11 05:17] LABS: Vancomycin Random 12.8 mcg/mL
[2021-03-11 05:23] LABS: ABS Basophils 0.1 10^3/ul (0-0.2); ABS Eosinophils 0.2 10^3/ul (0-0.6); ABS Monocytes 2.3 10^3/ul (0-0.8); ABS Neutrophils 18.6 10^3/ul (1.5-7.7); Eosinophil % 0.5 %; Lymphocyte % 34.1 %
[2021-03-11] MEDS ORDERED: Magnesium Sulfate 2 gm BAG 2 GM/50 ML BAG IVPB ONE (06:51)
[2021-03-11] MEDS: Pantoprazole VIAL 40 MG VIAL IV SCH ×2 (07:33→20:25)
[2021-03-11] MEDS: levETIRAcetam 1000MG IVPREMIX 1,000 MG/100 ML BAG IVPB SCH (07:35)
[2021-03-11 08:00] LABS: Hematocrit 25 % (35-47); Hemoglobin 8.6 g/dL (12.0-16.0)
[2021-03-11] MEDS: Zinc Oxide 16% PASTE (Butt Paste) 30 gm TUBE TOPICAL SCH ×3 (08:24→20:25)
[2021-03-11] MEDS: Acetaminophen IV 1 GM/100ML 100 ML IV PRN ×2 (08:27→23:16)
[2021-03-11] MEDS: Meropenem 1 GM PREMIX(*) 1 GM/50 ML BAG IV SCH (10:00)
[2021-03-11] MEDS: Anidulafungin 100 MG in NS 0.9% 100 ml BAG 100 ML IVPB SCH (12:00)
[2021-03-11] MEDS: Saline FLUSH-CENTRAL 10 ML SYRINGE CENT\\PICC SCH ×2 (12:11→20:26)
[2021-03-11] MEDS: LORazepam 2 mg VIAL 1 ml IV PUSH PRN (12:59)
[2021-03-11] MEDS: D5LR 1000 ml BAG 1,000 ML IV SCH (17:42)
[2021-03-11 23:32] LABS: Hematocrit 25 % (35-47); Hemoglobin 8.1 g/dL (12.0-16.0)
[2021-03-11] MEDS: fentaNYL 100 mcg/2 ml 50 MCG/ML VIAL IV SLOW PU PRN (23:46)
[2021-03-12 03:39] LABS: Hematocrit 23 % (35-47); Hemoglobin 7.8 g/dL (12.0-16.0)
[2021-03-12 05:46] LABS: Albumin/Globulin Ratio 0.7 (1-3); Calcium 7.5 mg/dL (8.6-10.3); EGFR African American 15.6 (>60); EGFR Non-African American 12.9 (>60); Globulin 2.9 g/dL (2-4); Phosphorus 4.4 mg/dL (2.5-5.0); Potassium 3.8 mmol/L (3.5-5.0); Total Bilirubin 0.8 mg/dL (0.2-1.0); Total Protein 4.9 g/dL (6.4-8.9)
[2021-03-12] MEDS: fentaNYL 100 mcg/2 ml 50 MCG/ML VIAL IV SLOW PU PRN ×2 (05:57→16:23)
[2021-03-12] MEDS: LORazepam 2 mg VIAL 1 ml IV PUSH PRN (05:57)
[2021-03-12] MEDS ORDERED: Vancomycin Random Level NOTE FOLLOW UP ONE (06:00)
[2021-03-12 06:15] LABS: Vancomycin Random 8.9 mcg/mL
[2021-03-12] MEDS: Acetaminophen IV 1 GM/100ML 100 ML IV SCH ×3 (07:06→22:43)
[2021-03-12] MEDS ORDERED: Levalbuterol 0.63MG/3ML NEB UNIT OF USE INH SCH (08:00)
[2021-03-12] MEDS: Metoprolol Tartrate 5 mg VIAL 5 ml VIAL (1 mg/ml) IV PRN (08:16)
[2021-03-12] MEDS: Meropenem 1 GM PREMIX(*) 1 GM/50 ML BAG IV SCH (08:16)
[2021-03-12] MEDS: levETIRAcetam 1000MG IVPREMIX 1,000 MG/100 ML BAG IVPB SCH (08:18)
[2021-03-12] MEDS: Zinc Oxide 16% PASTE (Butt Paste) 30 gm TUBE TOPICAL SCH ×3 (08:37→20:54)
[2021-03-12] MEDS: Saline FLUSH-CENTRAL 10 ML SYRINGE CENT\\PICC SCH ×2 (08:37→20:56)
[2021-03-12 08:42] LABS: C Reactive Protein 168.96 mg/L (<8.01)
[2021-03-12 09:10] LABS: Mean Corpuscular HGB Conc 32 g/dL (31-36); Mean Corpuscular Hemoglobin 30 pg (27-31); Mean Corpuscular Volume 94 fL (80-97); Mean Platelet Volume 8.1 fL (7.4-10.4); Platelet Count 664 10^3/uL (150-450); Red Blood Count 2.61 10^6 /uL (3.70-4.87); Red Cell Distribution Width 16 % (10-15)
[2021-03-12] MEDS: Anidulafungin 100 MG in NS 0.9% 100 ml BAG 100 ML IVPB SCH (10:25)
[2021-03-12] MEDS: Pantoprazole VIAL 40 MG VIAL IV SCH ×2 (10:26→20:53)
[2021-03-12] MEDS: D5LR 1000 ml BAG 1,000 ML IV SCH (10:26)
[2021-03-12 10:37] LABS: Hematocrit 24 % (35-47)
[2021-03-12] MEDS ORDERED: fentaNYL 100 mcg/2 ml 50 MCG/ML VIAL IV SLOW PU PRN (11:50)
[2021-03-12] MEDS ORDERED: fentaNYL 100 mcg/2 ml 50 MCG/ML VIAL ONE (11:52)
[2021-03-12] MEDS: Levalbuterol 0.63MG/3ML NEB UNIT OF USE INH SCH ×4 (12:50→21:22)
[2021-03-12] MEDS ORDERED: Magnesium Sulfate 2 gm BAG 2 GM/50 ML BAG IVPB ONE (13:43)
[2021-03-12] MEDS: Labetalol IV 5 MG/ML 20 ml VIAL IV PUSH PRN (13:56)
[2021-03-12] MEDS ORDERED: D5LR 1000 ml BAG 1,000 ML IV SCH (15:36)
[2021-03-12 17:37] LABS: Hematocrit 23 % (35-47); Hemoglobin 7.5 g/dL (12.0-16.0)
[2021-03-12] MEDS ORDERED: Vancomycin 750 MG in NS 0.9% 250 ML IVPB ONE (18:00)
[2021-03-13] MEDS: Levalbuterol 0.63MG/3ML NEB UNIT OF USE INH SCH ×6 (02:08→23:43)
[2021-03-13 05:07] LABS: Hematocrit 22 % (35-47); Hemoglobin 7.3 g/dL (12.0-16.0); Mean Corpuscular HGB Conc 33 g/dL (31-36); Mean Corpuscular Hemoglobin 30 pg (27-31); Mean Corpuscular Volume 92 fL (80-97); Mean Platelet Volume 7.7 fL (7.4-10.4); Platelet Count 540 10^3/uL (150-450); Red Cell Distribution Width 16 % (10-15); White Blood Count 38.8 10^3/uL (3.5-10.8)
[2021-03-13 05:16] LABS: INR 1.89 (0.86-1.15)
[2021-03-13 05:27] LABS: Albumin 1.9 g/dL (3.2-5.2); Albumin/Globulin Ratio 0.7 (1-3); Calcium 7.4 mg/dL (8.6-10.3); EGFR African American 16.4 (>60); EGFR Non-African American 13.6 (>60); Globulin 2.9 g/dL (2-4); Magnesium 2.4 mg/dL (1.9-2.7); Phosphorus 5.2 mg/dL (2.5-5.0); Potassium 4.1 mmol/L (3.5-5.0); Total Bilirubin 0.8 mg/dL (0.2-1.0); Total Protein 4.8 g/dL (6.4-8.9)
[2021-03-13] MEDS: Labetalol IV 5 MG/ML 20 ml VIAL IV PUSH PRN (06:11)
[2021-03-13] MEDS: Acetaminophen IV 1 GM/100ML 100 ML IV SCH ×3 (06:21→22:47)
[2021-03-13] MEDS ORDERED: Phytonadione SUBCUT/IM Adult 10 MG/ML AMP (IM or SQ not preferred route) SUBCUT ONE (08:25)
[2021-03-13] MEDS: levETIRAcetam 500 MG IVPREMIX 500 MG/100 ML BAG IV SCH ×2 (09:25→22:20)
[2021-03-13] MEDS: Pantoprazole VIAL 40 MG VIAL IV SCH ×2 (09:26→22:21)
[2021-03-13] MEDS: Metoprolol Tartrate 5 mg VIAL 5 ml VIAL (1 mg/ml) IV SCH ×3 (09:27→22:21)
[2021-03-13] MEDS: Zinc Oxide 16% PASTE (Butt Paste) 30 gm TUBE TOPICAL SCH ×3 (09:28→22:16)
[2021-03-13 09:55] LABS: ABS Basophils 0.1 10^3/ul (0-0.2); ABS Eosinophils 0.1 10^3/ul (0-0.6); ABS Lymphocytes 12.2 10^3/ul (1.0-4.8); ABS Neutrophils 22.5 10^3/ul (1.5-7.7); ABS Nucleated RBC 0.1 10^3/ul; Eosinophil % 0.3 %; Lymphocyte % 32.2 %; Nucleated Red Blood Cells % 0.1
[2021-03-13] MEDS: Saline FLUSH-CENTRAL 10 ML SYRINGE CENT\\PICC SCH ×2 (10:43→22:23)
[2021-03-13] MEDS ORDERED: fentaNYL 100 mcg/2 ml 50 MCG/ML VIAL ONE (15:08)
[2021-03-13] MEDS ORDERED: Midazolam 10 mg/10 ml VIAL 1 mg/ml 10 ml VIAL (10 mg) ONE (15:08)
[2021-03-13] MEDS ORDERED: TPN 24 HR with D10W 1000 ml BAG 1,000 ML, Amino Acid Infusion 10% 850 ML, Sterile Water... IV SCH (17:00)
[2021-03-13] MEDS ORDERED: Meropenem 1 GM PREMIX(*) 1 GM/50 ML BAG IV SCH (17:30)
[2021-03-14] MEDS: Metoprolol Tartrate 5 mg VIAL 5 ml VIAL (1 mg/ml) IV SCH ×4 (03:20→22:35)
[2021-03-14] MEDS: Levalbuterol 0.63MG/3ML NEB UNIT OF USE INH SCH ×2 (03:48→07:40)
[2021-03-14 06:00] LABS: INR 1.4 (0.86-1.15)
[2021-03-14] MEDS ORDERED: Vancomycin Random Level NOTE FOLLOW UP ONE (06:00)
[2021-03-14] MEDS ORDERED: Vancomycin Trough Check NOTE FOLLOW UP ONE (06:00)
[2021-03-14 06:01] LABS: Hematocrit 19 % (35-47); Hemoglobin 6.1 g/dL (12.0-16.0); Mean Corpuscular HGB Conc 33 g/dL (31-36); Mean Corpuscular Hemoglobin 30 pg (27-31); Mean Corpuscular Volume 94 fL (80-97); Mean Platelet Volume 8.1 fL (7.4-10.4); Platelet Count 476 10^3/uL (150-450); Red Blood Count 2.01 10^6 /uL (3.70-4.87); Red Cell Distribution Width 16 % (10-15); White Blood Count 34.6 10^3/uL (3.5-10.8)
[2021-03-14 06:04] LABS: Albumin 1.7 g/dL (3.2-5.2); Albumin/Globulin Ratio 0.6 (1-3); Calcium 7.3 mg/dL (8.6-10.3); EGFR African American 20.4 (>60); EGFR Non-African American 16.8 (>60); Globulin 2.8 g/dL (2-4); Phosphorus 4.7 mg/dL (2.5-5.0); Potassium 4.1 mmol/L (3.5-5.0); Total Bilirubin 0.6 mg/dL (0.2-1.0); Total Protein 4.5 g/dL (6.4-8.9)
[2021-03-14 06:05] LABS: Vancomycin Random 4.8 mcg/mL
[2021-03-14] MEDS: Zinc Oxide 16% PASTE (Butt Paste) 30 gm TUBE TOPICAL SCH ×3 (07:56→21:33)
[2021-03-14] MEDS: levETIRAcetam 500 MG IVPREMIX 500 MG/100 ML BAG IV SCH ×2 (08:08→22:04)
[2021-03-14] MEDS: Pantoprazole VIAL 40 MG VIAL IV SCH ×2 (08:08→21:32)
[2021-03-14] MEDS: Acetaminophen IV 1 GM/100ML 100 ML IV SCH (09:08)
[2021-03-14] MEDS: fentaNYL 100 mcg/2 ml 50 MCG/ML VIAL IV SLOW PU PRN ×3 (09:36→14:58)
[2021-03-14] MEDS: Saline FLUSH-CENTRAL 10 ML SYRINGE CENT\\PICC SCH ×2 (10:08→22:06)
[2021-03-14] MEDS ORDERED: Acetaminophen IV 1 GM/100ML 100 ML IV ONE (12:24)
[2021-03-14] MEDS: Acetaminophen IV 1 GM/100ML 100 ML IV PRN ×2 (12:30→21:32)
[2021-03-14 13:00] LABS: PCO2 Arterial 23 mmHg (35-45); PO2 Arterial 84 mmHg (80-100)
[2021-03-14 13:00] LABS: ABS Basophils 0.1 10^3/ul (0-0.2); ABS Lymphocytes 12.2 10^3/ul (1.0-4.8); ABS Monocytes 1.9 10^3/ul (0-0.8); ABS Neutrophils 22.3 10^3/ul (1.5-7.7); ABS Nucleated RBC 0.1 10^3/ul; Eosinophil % 0.1 %; Hematocrit 20 % (35-47); Hemoglobin 6.4 g/dL (12.0-16.0); Lymphocyte % 33.4 %; Mean Corpuscular HGB Conc 33 g/dL (31-36); Mean Corpuscular Hemoglobin 30 pg (27-31); Mean Corpuscular Volume 93 fL (80-97); Mean Platelet Volume 7.8 fL (7.4-10.4); Nucleated Red Blood Cells % 0.1; Platelet Count 472 10^3/uL (150-450); Red Blood Count 2.09 10^6 /uL (3.70-4.87); Red Cell Distribution Width 16 % (10-15); White Blood Count 36.5 10^3/uL (3.5-10.8)
[2021-03-14] MEDS ORDERED: Labetalol IV 5 MG/ML 20 ml VIAL IV PUSH PRN (13:03)
[2021-03-14] MEDS: LORazepam 2 mg VIAL 1 ml IV PUSH PRN (14:45)
[2021-03-14] MEDS ORDERED: Lidocaine 1% VIAL 10 MG/ML VIAL ONE (14:56)
[2021-03-14 15:48] LABS: Body Fluid Source Cerebral Spinal
[2021-03-14 15:51] LABS: Body Fluid Appearance Clear; Body Fluid Color Colorless; CSF Tube # 4
[2021-03-14] MEDS ORDERED: fentaNYL 100 mcg/2 ml 50 MCG/ML VIAL IV SLOW PU PRN (15:52)
[2021-03-14 16:04] LABS: CSF Glucose 59 mg/dL (40-70)
[2021-03-14] MEDS: Dexmedetomidine 1,000 MCG in NS 0.9% 250 ml 240 ML IV SCH (16:06)
[2021-03-14 16:37] LABS: Body Fluid WBC 5 /mcL
[2021-03-14 16:44] LABS: Body Fluid Mono 18 %; Body Fluid Total Cells Counted 100
[2021-03-14] MEDS ORDERED: TPN CENTRAL STANDARD BASE A CENT\\PICC SCH (17:00)
[2021-03-14 18:27] LABS: Hematocrit for Retic CNT 20 % (35-47); RBC Retic Count 2.09 10^6/uL (3.70-4.87)
[2021-03-14 18:32] LABS: Corrected Retic Count 1.1 % (0.5-1.5); Immature Retic Fraction 0.65
[2021-03-15 00:16] LABS: Hematocrit 20 % (35-47); Hemoglobin 6.5 g/dL (12.0-16.0); Mean Corpuscular HGB Conc 33 g/dL (31-36); Mean Corpuscular Hemoglobin 31 pg (27-31); Mean Corpuscular Volume 94 fL (80-97); Mean Platelet Volume 7.8 fL (7.4-10.4); Platelet Count 375 10^3/uL (150-450); Red Blood Count 2.13 10^6 /uL (3.70-4.87); Red Cell Distribution Width 15 % (10-15); White Blood Count 30.3 10^3/uL (3.5-10.8)
[2021-03-15 03:00] LABS: ABS Basophils 0.1 10^3/ul (0-0.2); ABS Eosinophils 0.2 10^3/ul (0-0.6); ABS Monocytes 2.4 10^3/ul (0-0.8); ABS Neutrophils 17.5 10^3/ul (1.5-7.7); ABS Nucleated RBC 0.1 10^3/ul; Eosinophil % 0.7 %; Lymphocyte % 33.2 %; Nucleated Red Blood Cells % 0.2
[2021-03-15] MEDS: Metoprolol Tartrate 5 mg VIAL 5 ml VIAL (1 mg/ml) IV SCH ×4 (04:30→21:07)
[2021-03-15 04:48] LABS: Hematocrit 20 % (35-47); Hemoglobin 6.6 g/dL (12.0-16.0); Mean Corpuscular HGB Conc 34 g/dL (31-36); Mean Corpuscular Hemoglobin 31 pg (27-31); Mean Corpuscular Volume 94 fL (80-97); Mean Platelet Volume 7.7 fL (7.4-10.4); Platelet Count 364 10^3/uL (150-450); Red Cell Distribution Width 15 % (10-15); White Blood Count 30.1 10^3/uL (3.5-10.8)
[2021-03-15 04:56] LABS: ABS Basophils 0.1 10^3/ul (0-0.2); ABS Eosinophils 0.4 10^3/ul (0-0.6); ABS Lymphocytes 10.5 10^3/ul (1.0-4.8); ABS Monocytes 2.4 10^3/ul (0-0.8); ABS Neutrophils 16.7 10^3/ul (1.5-7.7); Eosinophil % 1.3 %; INR 1.23 (0.86-1.15); Lymphocyte % 34.9 %; Nucleated Red Blood Cells % 0.1
[2021-03-15 05:06] LABS: Blood Urea Nitrogen 66 mg/dL (6-24); CO2 Carbon Dioxide 16 mmol/L (22-32); Calcium 7.4 mg/dL (8.6-10.3); EGFR African American 27.2 (>60); EGFR Non-African American 22.5 (>60); Glucose 100 mg/dL (70-100); Magnesium 1.8 mg/dL (1.9-2.7); Phosphorus 4.3 mg/dL (2.5-5.0); Potassium 4.5 mmol/L (3.5-5.0)
[2021-03-15 05:14] LABS: Anion Gap 8 mmol/L (2-11); Chloride 123 mmol/L (101-111); Sodium 147 mmol/L (135-145)
[2021-03-15 05:22] LABS: TSH Ultra Thyroid Stim Horm 4.42 mcIU/mL (0.34-5.60)
[2021-03-15] MEDS ORDERED: Magnesium Sulfate 2 gm BAG 2 GM/50 ML BAG IVPB ONE (07:28)
[2021-03-15] MEDS: Saline FLUSH-CENTRAL 10 ML SYRINGE CENT\\PICC SCH ×2 (08:41→20:16)
[2021-03-15 09:02] LABS: LDH 337 U/L (140-271); Rheumatoid Factor < 10 IU/mL (<15)
[2021-03-15] MEDS: Zinc Oxide 16% PASTE (Butt Paste) 30 gm TUBE TOPICAL SCH ×3 (09:14→20:21)
[2021-03-15] MEDS: levETIRAcetam 500 MG IVPREMIX 500 MG/100 ML BAG IV SCH ×2 (09:21→20:21)
[2021-03-15] MEDS: Pantoprazole VIAL 40 MG VIAL IV SCH ×2 (09:21→20:21)
[2021-03-15] MEDS ORDERED: Lactated Ringers 1000 ml BAG 1,000 ML IV SCH (10:00)
[2021-03-15] MEDS: Acetaminophen IV 1 GM/100ML 100 ML IV PRN ×2 (10:31→17:36)
[2021-03-15] MEDS: Dexmedetomidine 1,000 MCG in NS 0.9% 250 ml 240 ML IV SCH (13:21)
[2021-03-15] MEDS ORDERED: Furosemide 20 mg/2 ml IV VIAL IV SLOW PU ONE (16:33)
[2021-03-15] MEDS ORDERED: TPN 24 HR with Dextrose 50% Water 500 ML, Amino Acid Infusion 10% 850 ML, Sterile Water... CENT\\PICC SCH (17:01)
[2021-03-15] MEDS: Levalbuterol 0.63MG/3ML NEB UNIT OF USE INH PRN ×2 (17:45→23:23)
[2021-03-15 21:28] LABS: Hematocrit 25 % (35-47); Hemoglobin 8.4 g/dL (12.0-16.0); Mean Corpuscular HGB Conc 34 g/dL (31-36); Mean Corpuscular Hemoglobin 31 pg (27-31); Mean Corpuscular Volume 91 fL (80-97); Platelet Count 290 10^3/uL (150-450); Red Blood Count 2.73 10^6 /uL (3.70-4.87); Red Cell Distribution Width 16 % (10-15); White Blood Count 29.5 10^3/uL (3.5-10.8)
[2021-03-15 22:05] LABS: ABS Basophils 0.1 10^3/ul (0-0.2); ABS Eosinophils 0.4 10^3/ul (0-0.6); ABS Lymphocytes 9.2 10^3/ul (1.0-4.8); ABS Monocytes 1.7 10^3/ul (0-0.8); Eosinophil % 1.5 %; Lymphocyte % 31.3 %; Nucleated Red Blood Cells % 0.1
[2021-03-16 00:24] LABS: HSV 1 PCR, CSF Negative (Negative); HSV 2 PCR, CSF Negative (Negative)
[2021-03-16 01:07] LABS: Hematocrit 26 % (35-47); Hemoglobin 8.6 g/dL (12.0-16.0); Mean Corpuscular HGB Conc 33 g/dL (31-36); Mean Corpuscular Hemoglobin 31 pg (27-31); Mean Corpuscular Volume 91 fL (80-97); Mean Platelet Volume 7.8 fL (7.4-10.4); Platelet Count 339 10^3/uL (150-450); Red Blood Count 2.81 10^6 /uL (3.70-4.87); Red Cell Distribution Width 17 % (10-15); White Blood Count 36.3 10^3/uL (3.5-10.8)
[2021-03-16 01:37] LABS: Albumin 1.7 g/dL (3.2-5.2); Albumin/Globulin Ratio 0.6 (1-3); Calcium 7.4 mg/dL (8.6-10.3); EGFR African American 33.6 (>60); EGFR Non-African American 27.8 (>60); Globulin 2.7 g/dL (2-4); Potassium 4.9 mmol/L (3.5-5.0); Total Bilirubin 0.4 mg/dL (0.2-1.0); Total Protein 4.4 g/dL (6.4-8.9)
[2021-03-16 01:55] LABS: Fibrinogen 257.3 mg/dL (110.8-404.3); INR 1.27 (0.86-1.15)
[2021-03-16] MEDS ORDERED: Succinylcholine 200 mg VIAL 20 mg/ml 10 ml VIAL (200 mg) ONE (02:29)
[2021-03-16] MEDS ORDERED: Rocuronium 50 mg VIAL 10 mg/ml 5 ml VIAL (50 mg) ONE (02:29)
[2021-03-16] MEDS ORDERED: Etomidate 40 mg/20 ml (2 MG/ML) 20 ml VIAL (40 mg) ONE (02:44)
[2021-03-16] MEDS ORDERED: Norepinephrine 16MCG/ML IVPRE 4,000 MCG/250 ML BAG IV ONE (02:47)
[2021-03-16] MEDS ORDERED: Midazolam 2 mg/2 ml VIAL 1 mg/ml 2 ml VIAL (2 mg) IV SLOW PU ONE (02:57)
[2021-03-16] MEDS ORDERED: Midazolam 50 MG VIAL IV DRIP 50 ML IV SCH (03:00)
[2021-03-16] MEDS ORDERED: Phenylephrine IV 10 MG/ML 1 ml VIAL ONE ×2 (03:00→03:02)
[2021-03-16] MEDS ORDERED: Propofol 10 mg/ml 100 ML BTL 100 ML IV SCH (03:00)
[2021-03-16] MEDS ORDERED: Norepinephrine 16MCG/ML IVPRE 4,000 MCG/250 ML BAG IV SCH (03:00)
[2021-03-16] MEDS ORDERED: Phenylephrine IV 50 MG in NS 0.9% 250 ml 245 ML IV SCH (04:00)
[2021-03-16 05:18] LABS: Anisocytosis 2+; Toxic Granulation 2+
[2021-03-16 05:19] LABS: ABS Basophils 0.1 10^3/ul (0-0.2); ABS Eosinophils 0.4 10^3/ul (0-0.6); ABS Lymphocytes 13.1 10^3/ul (1.0-4.8); ABS Neutrophils 20.7 10^3/ul (1.5-7.7); ABS Nucleated RBC 0.1 10^3/ul; Lymphocyte % 36.1 %; Nucleated Red Blood Cells % 0.2
[2021-03-16 06:54] VITALS: BP 132/92
[2021-03-16 15:11] LABS: CSF VDRL Negative (Negative)
[2021-03-16 16:24] LABS: Albumin, CSF 7.7 mg/dL (<=27.0); Albumin, S 1700 mg/dL; IgG Index, CSF 0.49 (<=0.85); IgG, CSF 2.5 mg/dL (<=8.1); IgG, S 1100 mg/dL (767 - 1590); IgG/Albumin, CSF 0.32 (<=0.21); IgG/Albumin, S 0.65 (<=0.40)
[2021-03-16 23:49] LABS: CSF West Nile Virus IgG Ab Negative (Negative); CSF West Nile Virus IgM Ab Negative (Negative)
== END 2021-03-16 05:25 | disposition short-term general hospital (02) | DRG 853 ==
LOC: ED 14:24 → ICU 14:42
PROVIDERS: ADMIT Internal Medicine Critical Care Medicine; ATTEND Internal Medicine Critical Care Medicine

== ENCOUNTER 2021-05-18 08:05 | Inpatient (IN) ==
[2021-05-18] MEDS ORDERED: Lactated Ringers 1000 ml BAG 1,000 ML IV ONE ×2 (08:57→10:24)
[2021-05-18 09:40] LABS: ABS Basophils 0.1 10^3/ul (0-0.2); ABS Eosinophils 0.2 10^3/ul (0-0.6); ABS Lymphocytes 2.5 10^3/ul (1.0-4.8); ABS Monocytes 0.6 10^3/ul (0-0.8); ABS Neutrophils 5.8 10^3/ul (1.5-7.7); Eosinophil % 2.4 %; Hematocrit 39 % (35-47); Hemoglobin 13.3 g/dL (12.0-16.0); Lymphocyte % 26.8 %; Mean Corpuscular HGB Conc 34 g/dL (31-36); Mean Corpuscular Hemoglobin 32 pg (27-31); Mean Corpuscular Volume 92 fL (80-97); Mean Platelet Volume 6.7 fL (7.4-10.4); Platelet Count 819 10^3/uL (150-450); Red Blood Count 4.22 10^6 /uL (3.70-4.87); Red Cell Distribution Width 17 % (10-15); White Blood Count 9.2 10^3/uL (3.5-10.8)
[2021-05-18 09:42] LABS: Urine Appearance Turbid; Urine Bilirubin Negative (Negative); Urine Blood 1+ (Negative); Urine Color Amber; Urine Glucose Negative (Negative); Urine Ketones Negative (Negative); Urine Nitrite Negative (Negative); Urine Protein 1+(30 mg/dL) (Negative); Urine Urobilinogen Negative (Negative)
[2021-05-18 09:48] LABS: Urine Bacteria 1+ (Absent); Urine Red Blood Cell 3+(>10/hpf) (Absent); Urine White Blood Cell 3+(>20/hpf) (Absent); Urine Yeast Present (Absent)
[2021-05-18 09:52] LABS: Activated Partial Thrombo Time 39.7 seconds (26.0-38.0); INR 1.13 (0.86-1.15); Rapid COVID-19 Molecular Undetected (Undetected)
[2021-05-18 09:54] LABS: ALT 96 U/L (7-52); AST 56 U/L (13-39); Albumin 4.1 g/dL (3.2-5.2); Albumin/Globulin Ratio 0.9 (1-3); Alkaline Phosphatase 625 U/L (35-149); Anion Gap 8 mmol/L (2-11); Blood Urea Nitrogen 17 mg/dL (6-24); C Reactive Protein 7.44 mg/L (<8.01); CO2 Carbon Dioxide 23 mmol/L (22-32); Chloride 96 mmol/L (101-111); Globulin 4.5 g/dL (2-4); Glucose 99 mg/dL (70-100); Potassium 4.2 mmol/L (3.5-5.0); Sodium 127 mmol/L (135-145); Total Protein 8.6 g/dL (6.4-8.9)
[2021-05-18 10:13] LABS: Calcium 13.1 mg/dL (8.6-10.3); Troponin I 0.03 ng/mL (<0.03)
[2021-05-18] MEDS ORDERED: Iohexol 350 (CONTRAST) 500 ML MDV IV ONE (11:29)
[2021-05-18] MEDS ORDERED: Piperacillin/Tazobac ADVAN 3.375 GM in NS 0.9% 100 ml BAG 100 ML IV ONE ×2 (14:52→19:37)
[2021-05-18] MEDS ORDERED: Vancomycin 1,000 MG in NS 0.9% 250 ml 250 ML IVPB ONE ×2 (14:52→19:37)
[2021-05-18] MEDS ORDERED: Morphine 4 MG/ML VIAL (1 ml) IV ONE (15:22)
[2021-05-18] MEDS ORDERED: Vancomycin per Pharmacy 1 EA NOTE FOLLOW UP SCH (20:00)
[2021-05-18] MEDS ORDERED: Zosyn per Pharmacy NOTE FOLLOW UP SCH (20:00)
[2021-05-18] MEDS ORDERED: Enoxaparin 40 MG/0.4 ML SYR SUBCUT SCH (21:00)
[2021-05-18] MEDS ORDERED: [UNRECOGNIZED DRUG - OTHER] PO SCH (21:00)
[2021-05-18] MEDS: NS 0.9% 1000 ml BAG 1,000 ML IV SCH (21:03)
[2021-05-18] MEDS: ZOSYN 3.375 GM Q8H per EXTENDED INFUSION IV SCH (21:03)
[2021-05-18 21:50] LABS: Calcium 11.7 mg/dL (8.6-10.3)
[2021-05-18 22:02] LABS: Urine Chloride Concentration < 22 mmol/L; Urine Potassium Concentration 10.9 mmol/L; Urine Sodium Concentration < 18 mmol/L
[2021-05-18 22:13] LABS: Troponin I 0.02 ng/mL (<0.03)
[2021-05-18] MEDS: Chlorhexidine MOUTHWASH 0.12% 15 ML UDC TOPICAL SCH (22:35)
[2021-05-19 00:58] LABS: Troponin I 0.09 ng/mL (<0.03)
[2021-05-19] MEDS: Vancomycin 1000 MG in NS 0.9% 250 ML IVPB SCH ×3 (02:24→19:32)
[2021-05-19] MEDS: ZOSYN 3.375 GM Q8H per EXTENDED INFUSION IV SCH ×3 (04:36→21:23)
[2021-05-19 07:02] LABS: Hematocrit 31 % (35-47); Hemoglobin 10.7 g/dL (12.0-16.0); Mean Corpuscular HGB Conc 34 g/dL (31-36); Mean Corpuscular Hemoglobin 32 pg (27-31); Mean Corpuscular Volume 92 fL (80-97); Mean Platelet Volume 6.5 fL (7.4-10.4); Platelet Count 628 10^3/uL (150-450); Red Cell Distribution Width 17 % (10-15); White Blood Count 5.7 10^3/uL (3.5-10.8)
[2021-05-19 07:18] LABS: Calcium 11.5 mg/dL (8.6-10.3); Potassium 3.9 mmol/L (3.5-5.0)
[2021-05-19] MEDS: fentaNYL PATCH 25 MCG/HR 1 PATCH TRANSDERM SCH (07:36)
[2021-05-19 08:40] LABS: ABS Basophils 0.1 10^3/ul (0-0.2); ABS Eosinophils 0.3 10^3/ul (0-0.6); ABS Lymphocytes 1.2 10^3/ul (1.0-4.8); ABS Monocytes 0.4 10^3/ul (0-0.8); ABS Neutrophils 3.7 10^3/ul (1.5-7.7); Eosinophil % 5.6 %; Lymphocyte % 21.4 %
[2021-05-19] MEDS: Chlorhexidine MOUTHWASH 0.12% 15 ML UDC TOPICAL SCH ×2 (09:00→21:23)
[2021-05-19] MEDS: fentaNYL Patch Check Q Shift NOTE FOLLOW UP SCH ×2 (10:50→18:52)
[2021-05-19 11:09] LABS: Vitamin D Total 25(OH) 18.9 ng/mL (20-50)
[2021-05-19 11:10] LABS: TSH Ultra Thyroid Stim Horm 1.45 mcIU/mL (0.34-5.60)
[2021-05-19] MEDS: NS 0.9% 1000 ml BAG 1,000 ML IV SCH (19:38)
[2021-05-19] MEDS: Al Hydrox/Mg Hydrox/Simet LIQ 30 ML UDC PO PRN (21:23)
[2021-05-20] MEDS: Vancomycin 1000 MG in NS 0.9% 250 ML IVPB SCH ×2 (00:49→10:28)
[2021-05-20] MEDS: ZOSYN 3.375 GM Q8H per EXTENDED INFUSION IV SCH ×2 (03:15→12:43)
[2021-05-20] MEDS: fentaNYL Patch Check Q Shift NOTE FOLLOW UP SCH ×2 (07:15→22:43)
[2021-05-20] MEDS ORDERED: Flu vaccine *QUAD* 2021-22* 0.5 ML SYRINGE IM ONE (09:00)
[2021-05-20] MEDS ORDERED: Vancomycin Trough Check NOTE FOLLOW UP ONE (09:00)
[2021-05-20 09:15] LABS: ABS Eosinophils 0.4 10^3/ul (0-0.6); ABS Lymphocytes 1.6 10^3/ul (1.0-4.8); ABS Monocytes 0.5 10^3/ul (0-0.8); ABS Neutrophils 3.5 10^3/ul (1.5-7.7); Eosinophil % 7.1 %; Hematocrit 32 % (35-47); Hemoglobin 10.9 g/dL (12.0-16.0); Lymphocyte % 25.9 %; Mean Corpuscular HGB Conc 34 g/dL (31-36); Mean Corpuscular Hemoglobin 32 pg (27-31); Mean Corpuscular Volume 93 fL (80-97); Mean Platelet Volume 6.5 fL (7.4-10.4); Nucleated Red Blood Cells % 0.1; Platelet Count 653 10^3/uL (150-450); Red Blood Count 3.45 10^6 /uL (3.70-4.87); Red Cell Distribution Width 16 % (10-15); White Blood Count 6.1 10^3/uL (3.5-10.8)
[2021-05-20 09:33] LABS: Calcium 11.5 mg/dL (8.6-10.3); Potassium 3.2 mmol/L (3.5-5.0)
[2021-05-20] MEDS: Chlorhexidine MOUTHWASH 0.12% 15 ML UDC TOPICAL SCH ×2 (10:27→20:27)
[2021-05-20 12:18] LABS: Magnesium 1.5 mg/dL (1.9-2.7)
[2021-05-20] MEDS: HYDROmorphone 1 MG/1 ML SYRINGE IV SLOW PU PRN ×2 (12:44→18:31)
[2021-05-20] MEDS ORDERED: Magnesium Sulfate IV 3 GM in NS 0.9% 100 ml BAG 100 ML IVPB ONE (14:00)
[2021-05-20] MEDS ORDERED: NS 0.9% 1000 ml BAG 1,000 ML IV SCH (14:45)
[2021-05-20] MEDS: KCL 20 MEQ/100 ML IVPREMIX 20 MEQ/100 ML BAG IV SCH (14:58)
[2021-05-20] MEDS: Cefepime 2 GM in Dextrose 2 GM/50 ML BAG IV SCH (16:35)
[2021-05-21] MEDS: HYDROmorphone 1 MG/1 ML SYRINGE IV SLOW PU PRN ×3 (02:57→12:50)
[2021-05-21] MEDS ORDERED: Lactated Ringers 500 ml BAG 500 ML IV SCH (03:00)
[2021-05-21 03:48] LABS: Hematocrit 28 % (35-47); Hemoglobin 9.8 g/dL (12.0-16.0); Mean Corpuscular HGB Conc 35 g/dL (31-36); Mean Corpuscular Hemoglobin 32 pg (27-31); Mean Corpuscular Volume 92 fL (80-97); Mean Platelet Volume 6.6 fL (7.4-10.4); Platelet Count 587 10^3/uL (150-450); Red Cell Distribution Width 16 % (10-15); White Blood Count 5.4 10^3/uL (3.5-10.8)
[2021-05-21 04:03] LABS: Anion Gap 6 mmol/L (2-11); Blood Urea Nitrogen 5 mg/dL (6-24); CO2 Carbon Dioxide 22 mmol/L (22-32); Calcium 10.6 mg/dL (8.6-10.3); Chloride 107 mmol/L (101-111); Glucose 88 mg/dL (70-100); Magnesium 1.4 mg/dL (1.9-2.7); Potassium 3.2 mmol/L (3.5-5.0); Sodium 135 mmol/L (135-145)
[2021-05-21] MEDS: Cefepime 2 GM in Dextrose 2 GM/50 ML BAG IV SCH ×2 (04:42→16:31)
[2021-05-21] MEDS: Pantoprazole VIAL 40 MG VIAL IV SCH ×2 (04:52→20:10)
[2021-05-21] MEDS ORDERED: Vancomycin Random Level NOTE FOLLOW UP ONE (06:00)
[2021-05-21 06:40] LABS: ABS Eosinophils 0.4 10^3/ul (0-0.6); ABS Lymphocytes 1.4 10^3/ul (1.0-4.8); ABS Monocytes 0.5 10^3/ul (0-0.8); ABS Neutrophils 3.1 10^3/ul (1.5-7.7); Eosinophil % 6.7 %; Hematocrit 28 % (35-47); Hemoglobin 9.9 g/dL (12.0-16.0); Lymphocyte % 25.2 %; Mean Corpuscular HGB Conc 35 g/dL (31-36); Mean Corpuscular Hemoglobin 32 pg (27-31); Mean Corpuscular Volume 92 fL (80-97); Mean Platelet Volume 6.9 fL (7.4-10.4); Platelet Count 592 10^3/uL (150-450); Red Blood Count 3.06 10^6 /uL (3.70-4.87); Red Cell Distribution Width 16 % (10-15); White Blood Count 5.4 10^3/uL (3.5-10.8)
[2021-05-21 06:49] LABS: Magnesium 1.4 mg/dL (1.9-2.7); Potassium 3.2 mmol/L (3.5-5.0)
[2021-05-21 06:53] LABS: Vancomycin Random 13.4 mcg/mL
[2021-05-21] MEDS: fentaNYL Patch Check Q Shift NOTE FOLLOW UP SCH ×2 (07:15→18:58)
[2021-05-21] MEDS ORDERED: Magnesium Sulfate IV 3 GM in NS 0.9% 100 ml BAG 100 ML IVPB ONE (07:20)
[2021-05-21] MEDS: KCL 20 MEQ/100 ML IVPREMIX 20 MEQ/100 ML BAG IV SCH ×2 (08:37→09:38)
[2021-05-21 08:38] LABS: % Iron Saturation 16 % (15-55); Iron 41 ug/dL (50-212); Total Iron Binding Capacity 260 mcg/dL (250-450); Transferrin 186 mg/dL (203-362); Unsaturated Iron Binding < 245 ug/dL
[2021-05-21] MEDS ORDERED: Potassium Chlor 20 meq TAB.ER PO ONE (09:57)
[2021-05-21] MEDS: Chlorhexidine MOUTHWASH 0.12% 15 ML UDC TOPICAL SCH ×2 (10:39→20:20)
[2021-05-21 11:01] LABS: Ferritin 545.6 ng/mL (11-307)
[2021-05-21] MEDS ORDERED: metroNIDAZOLE IV 500 MG/100ML 500 MG/100 ML BAG IVPB SCH (12:00)
[2021-05-21] MEDS ORDERED: Vancomycin 1000 MG in NS 0.9% 250 ML IVPB SCH (12:00)
[2021-05-21] MEDS: metroNIDAZOLE IV 500 MG/100ML 500 MG/100 ML BAG IVPB SCH ×2 (12:51→20:20)
[2021-05-21 13:47] LABS: Hematocrit 28 % (35-47); Hemoglobin 9.6 g/dL (12.0-16.0)
[2021-05-21] MEDS: Morphine 2 MG/ML SYRINGE IV PRN ×2 (15:58→20:11)
[2021-05-21] MEDS: Al Hydrox/Mg Hydrox/Simet LIQ 30 ML UDC PO PRN (16:37)
[2021-05-21] MEDS: Heparin DRIP 25,000 UNITS BAG 25,000 UNITS/500 ML BAG IV SCH (16:50)
[2021-05-21] MEDS: Heparin 5000 UNITS/ML 1 mL VIAL IV SCH (16:56)
[2021-05-21 16:58] LABS: Albumin 2.7 g/dL (3.4-4.7); Albumin/Globulin Ratio 0.82; Gamma Globulin 1.2 g/dL (0.6-1.6); Total Protein(PEP) 5.9 g/dL (6.3 - 7.9)
[2021-05-21 19:04] LABS: Kappa Free Light Chain 3.54 mg/dL; Lambda Free Light Chain, S 1.99 mg/dL
[2021-05-21 19:31] LABS: Hematocrit 30 % (35-47); Hemoglobin 9.9 g/dL (12.0-16.0)
[2021-05-22] MEDS: Morphine 2 MG/ML SYRINGE IV PRN ×6 (00:04→20:36)
[2021-05-22 01:53] LABS: Hematocrit 27 % (35-47); Hemoglobin 9.6 g/dL (12.0-16.0)
[2021-05-22] MEDS: Cefepime 2 GM in Dextrose 2 GM/50 ML BAG IV SCH ×2 (05:44→16:16)
[2021-05-22 06:35] LABS: ABS Eosinophils 0.3 10^3/ul (0-0.6); ABS Lymphocytes 1.7 10^3/ul (1.0-4.8); ABS Monocytes 0.5 10^3/ul (0-0.8); Eosinophil % 5.6 %; Hematocrit 27 % (35-47); Hemoglobin 9.4 g/dL (12.0-16.0); Lymphocyte % 30.9 %; Mean Corpuscular HGB Conc 34 g/dL (31-36); Mean Corpuscular Hemoglobin 31 pg (27-31); Mean Corpuscular Volume 92 fL (80-97); Mean Platelet Volume 6.8 fL (7.4-10.4); Platelet Count 592 10^3/uL (150-450); Red Blood Count 2.98 10^6 /uL (3.70-4.87); Red Cell Distribution Width 16 % (10-15); White Blood Count 5.6 10^3/uL (3.5-10.8)
[2021-05-22] MEDS: fentaNYL PATCH 25 MCG/HR 1 PATCH TRANSDERM SCH (06:56)
[2021-05-22 07:00] LABS: Calcium 11.1 mg/dL (8.6-10.3); Potassium 3.5 mmol/L (3.5-5.0)
[2021-05-22] MEDS: fentaNYL Patch Check Q Shift NOTE FOLLOW UP SCH ×2 (07:06→21:35)
[2021-05-22] MEDS: Pantoprazole VIAL 40 MG VIAL IV SCH ×2 (10:01→20:37)
[2021-05-22] MEDS: metroNIDAZOLE IV 500 MG/100ML 500 MG/100 ML BAG IVPB SCH ×2 (10:03→20:38)
[2021-05-22] MEDS: Chlorhexidine MOUTHWASH 0.12% 15 ML UDC TOPICAL SCH ×2 (11:08→20:38)
[2021-05-22 11:15] LABS: Hematocrit 30 % (35-47); Hemoglobin 10.3 g/dL (12.0-16.0)
[2021-05-22] MEDS: Heparin DRIP 25,000 UNITS BAG 25,000 UNITS/500 ML BAG IV SCH (14:20)
[2021-05-22] MEDS: Heparin 5000 UNITS/ML 1 mL VIAL IV SCH (14:23)
[2021-05-22 14:36] LABS: XCalcitriol <8.0 pg/mL (18-78)
[2021-05-23] MEDS: Morphine 2 MG/ML SYRINGE IV PRN ×5 (00:50→21:22)
[2021-05-23] MEDS: Cefepime 2 GM in Dextrose 2 GM/50 ML BAG IV SCH ×2 (04:03→16:09)
[2021-05-23] MEDS ORDERED: Ondansetron 4 mg VIAL 2 MG/ML 2 ml VIAL IV ONE (06:18)
[2021-05-23 06:20] LABS: Hematocrit 30 % (35-47); Hemoglobin 10.2 g/dL (12.0-16.0); Mean Corpuscular HGB Conc 35 g/dL (31-36); Mean Corpuscular Hemoglobin 31 pg (27-31); Mean Corpuscular Volume 91 fL (80-97); Mean Platelet Volume 6.6 fL (7.4-10.4); Platelet Count 626 10^3/uL (150-450); Red Blood Count 3.26 10^6 /uL (3.70-4.87); Red Cell Distribution Width 16 % (10-15); White Blood Count 5.8 10^3/uL (3.5-10.8)
[2021-05-23 06:39] LABS: Calcium 11.3 mg/dL (8.6-10.3); Magnesium 1.3 mg/dL (1.9-2.7); Potassium 3.4 mmol/L (3.5-5.0); eGFR CKD-EPI 108.2 (>60)
[2021-05-23] MEDS: fentaNYL Patch Check Q Shift NOTE FOLLOW UP SCH ×2 (07:23→18:58)
[2021-05-23] MEDS ORDERED: Potassium Chlor 20 meq TAB.ER PO ONE (07:38)
[2021-05-23] MEDS: Pantoprazole VIAL 40 MG VIAL IV SCH (09:11)
[2021-05-23] MEDS: Heparin DRIP 25,000 UNITS BAG 25,000 UNITS/500 ML BAG IV SCH ×2 (09:37→16:04)
[2021-05-23] MEDS: metroNIDAZOLE IV 500 MG/100ML 500 MG/100 ML BAG IVPB SCH ×2 (09:49→21:24)
[2021-05-23] MEDS ORDERED: Promethazine INJ(RESTRICTED) 25 MG/ML 1 ml VIAL IV PRN (13:34)
[2021-05-23] MEDS: Chlorhexidine MOUTHWASH 0.12% 15 ML UDC TOPICAL SCH ×2 (13:34→23:54)
[2021-05-23 16:00] LABS: PTH Related Peptide 0.5 pmol/L (< or = 4.2)
[2021-05-23] MEDS ORDERED: Enoxaparin 60 MG/0.6 ML SYR SUBCUT SCH ×2 (18:00→21:00)
[2021-05-24] MEDS: Cefepime 2 GM in Dextrose 2 GM/50 ML BAG IV SCH ×2 (03:32→16:51)
[2021-05-24] MEDS: Morphine 2 MG/ML SYRINGE IV PRN ×4 (03:43→21:03)
[2021-05-24 06:33] LABS: ABS Eosinophils 0.4 10^3/ul (0-0.6); ABS Lymphocytes 1.8 10^3/ul (1.0-4.8); ABS Monocytes 0.6 10^3/ul (0-0.8); ABS Neutrophils 3.3 10^3/ul (1.5-7.7); Eosinophil % 5.9 %; Hematocrit 29 % (35-47); Hemoglobin 10.2 g/dL (12.0-16.0); Lymphocyte % 29.2 %; Mean Corpuscular HGB Conc 35 g/dL (31-36); Mean Corpuscular Hemoglobin 32 pg (27-31); Mean Corpuscular Volume 92 fL (80-97); Mean Platelet Volume 6.7 fL (7.4-10.4); Nucleated Red Blood Cells % 0.1; Platelet Count 604 10^3/uL (150-450); Red Blood Count 3.19 10^6 /uL (3.70-4.87); Red Cell Distribution Width 16 % (10-15); White Blood Count 6.1 10^3/uL (3.5-10.8)
[2021-05-24 06:54] LABS: Calcium 11.7 mg/dL (8.6-10.3); Magnesium 1.4 mg/dL (1.9-2.7); Potassium 3.3 mmol/L (3.5-5.0); eGFR CKD-EPI 109.2 (>60)
[2021-05-24] MEDS ORDERED: Magnesium Sulfate IV 3 GM in NS 0.9% 100 ml BAG 100 ML IVPB ONE (07:19)
[2021-05-24] MEDS ORDERED: Potassium Chlor 20 meq TAB.ER PO ONE (07:19)
[2021-05-24] MEDS: fentaNYL Patch Check Q Shift NOTE FOLLOW UP SCH ×2 (07:25→21:02)
[2021-05-24] MEDS: metroNIDAZOLE IV 500 MG/100ML 500 MG/100 ML BAG IVPB SCH ×2 (08:50→21:03)
[2021-05-24] MEDS: Prochlorperazine 5 mg/ml 2 ml VIAL (10 mg) IV PRN (09:03)
[2021-05-24] MEDS: KCL 20 MEQ/100 ML IVPREMIX 20 MEQ/100 ML BAG IV SCH ×2 (09:07→09:08)
[2021-05-24] MEDS ORDERED: Vancomycin Trough Check NOTE FOLLOW UP ONE (11:30)
[2021-05-25] MEDS: Morphine 2 MG/ML SYRINGE IV PRN ×5 (02:15→20:35)
[2021-05-25] MEDS: Cefepime 2 GM in Dextrose 2 GM/50 ML BAG IV SCH (05:44)
[2021-05-25 05:45] LABS: ABS Basophils 0.1 10^3/ul (0-0.2); ABS Eosinophils 0.3 10^3/ul (0-0.6); ABS Monocytes 0.7 10^3/ul (0-0.8); ABS Neutrophils 3.3 10^3/ul (1.5-7.7); Eosinophil % 4.6 %; Hematocrit 32 % (35-47); Hemoglobin 10.9 g/dL (12.0-16.0); Lymphocyte % 30.9 %; Mean Corpuscular HGB Conc 34 g/dL (31-36); Mean Corpuscular Hemoglobin 31 pg (27-31); Mean Corpuscular Volume 91 fL (80-97); Mean Platelet Volume 6.7 fL (7.4-10.4); Nucleated Red Blood Cells % 0.2; Platelet Count 646 10^3/uL (150-450); Red Blood Count 3.48 10^6 /uL (3.70-4.87); Red Cell Distribution Width 16 % (10-15); White Blood Count 6.3 10^3/uL (3.5-10.8)
[2021-05-25 05:59] LABS: Calcium 11.8 mg/dL (8.6-10.3); Magnesium 1.3 mg/dL (1.9-2.7); Potassium 3.2 mmol/L (3.5-5.0); eGFR CKD-EPI 107.3 (>60)
[2021-05-25] MEDS: fentaNYL PATCH 25 MCG/HR 1 PATCH TRANSDERM SCH (06:46)
[2021-05-25] MEDS: fentaNYL Patch Check Q Shift NOTE FOLLOW UP SCH ×2 (06:48→19:16)
[2021-05-25] MEDS ORDERED: diPHENhydraMINE IV 50 MG/ML 1 ml VIAL (BENADRYL) IV ONE (08:16)
[2021-05-25] MEDS: Potassium Chlor 20 meq TAB.ER PO ONE ×2 (09:14→14:58)
[2021-05-25] MEDS: Al Hydrox/Mg Hydrox/Simet LIQ 30 ML UDC PO PRN ×2 (09:37→16:37)
[2021-05-25] MEDS: metroNIDAZOLE IV 500 MG/100ML 500 MG/100 ML BAG IVPB SCH (09:53)
[2021-05-25 10:54] LABS: Gamma Globulin 1.7 mg/dL; Protein,Total, Random Urine 12 mg/dL
[2021-05-25] MEDS: Calamine LOTION BTL TOPICAL SCH ×3 (11:26→20:33)
[2021-05-25] MEDS ORDERED: diPHENhydraMINE 25 mg TAB PO PRN (18:15)
[2021-05-25] MEDS: Prochlorperazine 5 mg/ml 2 ml VIAL (10 mg) IV PRN (19:17)
[2021-05-25] MEDS: diPHENhydraMINE IV 50 MG/ML 1 ml VIAL (BENADRYL) IV PRN (19:19)
[2021-05-26] MEDS: Prochlorperazine 5 mg/ml 2 ml VIAL (10 mg) IV PRN ×2 (01:51→12:41)
[2021-05-26] MEDS: Morphine 2 MG/ML SYRINGE IV PRN ×2 (03:37→09:19)
[2021-05-26 06:01] LABS: Hematocrit 34 % (35-47); Hemoglobin 11.9 g/dL (12.0-16.0); Mean Corpuscular HGB Conc 35 g/dL (31-36); Mean Corpuscular Hemoglobin 32 pg (27-31); Mean Corpuscular Volume 90 fL (80-97); Mean Platelet Volume 6.7 fL (7.4-10.4); Platelet Count 640 10^3/uL (150-450); Red Blood Count 3.77 10^6 /uL (3.70-4.87); Red Cell Distribution Width 16 % (10-15); White Blood Count 7.2 10^3/uL (3.5-10.8)
[2021-05-26 06:18] LABS: Calcium 11.9 mg/dL (8.6-10.3); Magnesium 1.3 mg/dL (1.9-2.7); Potassium 3.2 mmol/L (3.5-5.0); eGFR CKD-EPI 104.7 (>60)
[2021-05-26] MEDS: fentaNYL Patch Check Q Shift NOTE FOLLOW UP SCH ×2 (07:00→19:16)
[2021-05-26] MEDS: Calamine LOTION BTL TOPICAL SCH ×3 (09:22→21:12)
[2021-05-26] MEDS ORDERED: Magnesium Sulfate IV 3 GM in NS 0.9% 100 ml BAG 100 ML IVPB ONE (11:57)
[2021-05-26] MEDS: Potassium Chlor 20 meq TAB.ER PO ONE ×2 (12:30→12:46)
[2021-05-26 12:48] LABS: Phosphorus 3.1 mg/dL (2.5-5.0)
[2021-05-26] MEDS ORDERED: Famotidine IV 10 MG/ML 2 ml VIAL (20 mg) IV SLOW PU ONE (22:44)
[2021-05-26] MEDS ORDERED: Al Hydrox/Mg Hydrox/Simet LIQ 30 ML UDC PO ONE (22:45)
[2021-05-27] MEDS: fentaNYL Patch Check Q Shift NOTE FOLLOW UP SCH ×2 (06:55→19:06)
[2021-05-27 07:06] LABS: Calcium 11.8 mg/dL (8.6-10.3); Magnesium 1.3 mg/dL (1.9-2.7); Potassium 3.5 mmol/L (3.5-5.0); eGFR CKD-EPI 68.2 (>60)
[2021-05-27] MEDS ORDERED: Magnesium Sulfate IV 3 GM in NS 0.9% 100 ml BAG 100 ML IVPB ONE (07:18)
[2021-05-27] MEDS: Prochlorperazine 5 mg/ml 2 ml VIAL (10 mg) IV PRN ×2 (08:29→14:56)
[2021-05-27] MEDS: Calamine LOTION BTL TOPICAL SCH ×3 (08:33→20:33)
[2021-05-27] MEDS: Al Hydrox/Mg Hydrox/Simet LIQ 30 ML UDC PO PRN ×2 (09:58→16:58)
[2021-05-27] MEDS: Metoclopramide LIQUID 1 mg/ml 10 ml ORAL.SOLN (10 mg) PO PRN (20:50)
[2021-05-28] MEDS: diPHENhydraMINE IV 50 MG/ML 1 ml VIAL (BENADRYL) IV PRN ×3 (04:03→23:36)
[2021-05-28] MEDS: fentaNYL PATCH 25 MCG/HR 1 PATCH TRANSDERM SCH (06:08)
[2021-05-28] MEDS: fentaNYL Patch Check Q Shift NOTE FOLLOW UP SCH ×2 (07:36→19:49)
[2021-05-28 09:15] LABS: Calcium 11.6 mg/dL (8.6-10.3); Magnesium 1.6 mg/dL (1.9-2.7); Potassium 3.4 mmol/L (3.5-5.0); eGFR CKD-EPI 103.2 (>60)
[2021-05-28] MEDS ORDERED: metroNIDAZOLE IV 500 MG/100ML 500 MG/100 ML BAG IVPB SCH (11:00)
[2021-05-28] MEDS: Calamine LOTION BTL TOPICAL SCH ×3 (11:01→20:30)
[2021-05-28] MEDS: metroNIDAZOLE IV 500 MG/100ML 500 MG/100 ML BAG IVPB SCH (11:16)
[2021-05-28] MEDS ORDERED: Magnesium Sulf 4 GM/100 ML IV 4,000 MG/100 ML BAG IVPB ONE (11:34)
[2021-05-28] MEDS ORDERED: Ondansetron 4 mg VIAL 2 MG/ML 2 ml VIAL IV ONE (11:35)
[2021-05-28] MEDS ORDERED: Potassium Chloride LIQUID 20 MEQ/15 ML LIQUID PEG TUBE ONE (17:29)
[2021-05-28] MEDS: Ciprofloxacin 400mg IVPREMIX 400 MG/200 ML BAG IVPB SCH (23:35)
[2021-05-29] MEDS ORDERED: Ondansetron 4 mg VIAL 2 MG/ML 2 ml VIAL IV ONE (02:32)
[2021-05-29] MEDS: metroNIDAZOLE IV 500 MG/100ML 500 MG/100 ML BAG IVPB SCH ×2 (04:24→12:23)
[2021-05-29] MEDS: Ciprofloxacin 400mg IVPREMIX 400 MG/200 ML BAG IVPB SCH ×3 (04:26→12:24)
[2021-05-29 06:58] LABS: Albumin 3.4 g/dL (3.2-5.2); Albumin/Globulin Ratio 0.9 (1-3); Globulin 3.7 g/dL (2-4); Magnesium 1.6 mg/dL (1.9-2.7); Phosphorus 3.5 mg/dL (2.5-5.0); Potassium 3.2 mmol/L (3.5-5.0); Total Bilirubin 0.3 mg/dL (0.2-1.0); Total Protein 7.1 g/dL (6.4-8.9); eGFR CKD-EPI 100.3 (>60)
[2021-05-29] MEDS: fentaNYL Patch Check Q Shift NOTE FOLLOW UP SCH ×2 (08:07→18:52)
[2021-05-29] MEDS: Calamine LOTION BTL TOPICAL SCH ×3 (11:20→21:55)
[2021-05-29] MEDS: diPHENhydraMINE 25 mg TAB PO PRN ×2 (13:43→21:55)
[2021-05-29] MEDS ORDERED: Potassium Chloride LIQUID 20 MEQ/15 ML LIQUID PO ONE (13:54)
[2021-05-29] MEDS ORDERED: Magnesium Sulf 4 GM/100 ML IV 4,000 MG/100 ML BAG IVPB ONE (15:00)
[2021-05-29 21:09] LABS: Osmolality Serum 276 mOsm/kg (275-295)
[2021-05-29 21:30] LABS: Urine Osmo 105 mOsm/kg (150-1150)
[2021-05-29] MEDS: Sulfamethox/Trimethoprim DS TAB 800/160 mg PO SCH (21:54)
[2021-05-30] MEDS ORDERED: Ketorolac 10 mg TAB (NF) PO ONE (00:52)
[2021-05-30] MEDS: Al Hydrox/Mg Hydrox/Simet LIQ 30 ML UDC PO PRN ×2 (02:24→13:26)
[2021-05-30] MEDS ORDERED: diPHENhydraMINE 25 mg TAB PO ONE (02:44)
[2021-05-30] MEDS: Metoclopramide LIQUID 1 mg/ml 10 ml ORAL.SOLN (10 mg) PO PRN (05:07)
[2021-05-30] MEDS ORDERED: Ondansetron 4 mg VIAL 2 MG/ML 2 ml VIAL IV ONE (06:08)
[2021-05-30] MEDS: fentaNYL Patch Check Q Shift NOTE FOLLOW UP SCH (06:54)
[2021-05-30] MEDS ORDERED: NS 0.9% 1000 ml BAG 1,000 ML IV SCH ×2 (07:30→07:34)
[2021-05-30 07:52] LABS: CO2 Carbon Dioxide 25 mmol/L (22-32); Chloride 92 mmol/L (101-111); Sodium 126 mmol/L (135-145)
[2021-05-30 07:57] LABS: Blood Urea Nitrogen 11 mg/dL (6-24); Glucose 87 mg/dL (70-100); eGFR CKD-EPI 71.7 (>60)
[2021-05-30] MEDS: Sulfamethox/Trimethoprim DS TAB 800/160 mg PO SCH (08:33)
[2021-05-30 09:31] LABS: Anion Gap 9 mmol/L (2-11)
[2021-05-30 12:39] LABS: Rapid COVID-19 Molecular Undetected (Undetected)
[2021-05-30] MEDS: Calamine LOTION BTL TOPICAL SCH (13:25)
[2021-05-30 15:31] VITALS: BP 93/62
== END 2021-05-30 17:33 | DRG 392 ==
LOC: ED 08:05 → EDHOLD 18:15 → SUATTDRO 18:15 → MEDTELE 05-19 01:12
PROVIDERS: ADMIT Internal Medicine; ATTEND Internal Medicine

== ENCOUNTER 2021-06-02 09:00 | Inpatient (IN) ==
[2021-06-02] MEDS ORDERED: Morphine 2 MG/ML SYRINGE IV ONE (09:34)
[2021-06-02] MEDS ORDERED: Morphine 4 MG/ML VIAL (1 ml) IV ONE (09:34)
[2021-06-02] MEDS: Lactated Ringers 1000 ml BAG 1,000 ML IV SCH ×2 (09:48→16:27)
[2021-06-02 10:01] LABS: ABS Basophils 0.1 10^3/ul (0-0.2); ABS Lymphocytes 3.3 10^3/ul (1.0-4.8); ABS Monocytes 0.7 10^3/ul (0-0.8); ABS Neutrophils 10.8 10^3/ul (1.5-7.7); Eosinophil % 0.3 %; Hematocrit 39 % (35-47); Hemoglobin 14.4 g/dL (12.0-16.0); Lymphocyte % 22.2 %; Mean Corpuscular HGB Conc 37 g/dL (31-36); Mean Corpuscular Hemoglobin 33 pg (27-31); Mean Corpuscular Volume 90 fL (80-97); Mean Platelet Volume 6.8 fL (7.4-10.4); Platelet Count 883 10^3/uL (150-450); Red Blood Count 4.39 10^6 /uL (3.70-4.87); Red Cell Distribution Width 15 % (10-15); White Blood Count 14.8 10^3/uL (3.5-10.8)
[2021-06-02 10:23] LABS: Activated Partial Thrombo Time 26.5 seconds (26.0-38.0); INR 1.12 (0.86-1.15)
[2021-06-02 10:25] LABS: ALT 20 U/L (7-52); Albumin 4.2 g/dL (3.2-5.2); Albumin/Globulin Ratio 0.9 (1-3); Alkaline Phosphatase 331 U/L (35-149); Blood Urea Nitrogen 13 mg/dL (6-24); CO2 Carbon Dioxide 27 mmol/L (22-32); Calcium 11.9 mg/dL (8.6-10.3); Chloride 80 mmol/L (101-111); Globulin 4.7 g/dL (2-4); Glucose 111 mg/dL (70-100); Lipase 11 U/L (11.0-82.0); Sodium 120 mmol/L (135-145); Total Protein 8.9 g/dL (6.4-8.9)
[2021-06-02 10:31] LABS: HCG Pregnancy < 0.60 mIU/mL
[2021-06-02] MEDS ORDERED: Iohexol 300 (CONTRAST) 10 ML SDV IV ONE (10:49)
[2021-06-02 10:58] LABS: Anion Gap 13 mmol/L (2-11)
[2021-06-02] MEDS ORDERED: Piperacillin/Tazobac ADVAN 3.375 GM in NS 0.9% 100 ml BAG 100 ML IVPB ONE (11:20)
[2021-06-02] MEDS ORDERED: LACTATED RINGERS IV ONE (11:22)
[2021-06-02 11:39] LABS: Urine Appearance Turbid; Urine Bilirubin Negative (Negative); Urine Blood Negative (Negative); Urine Color Yellow; Urine Glucose Negative (Negative); Urine Ketones Negative (Negative); Urine Nitrite Negative (Negative); Urine Protein Negative (Negative); Urine Specific Gravity 1.019 (1.002-1.030); Urine Urobilinogen Negative (Negative)
[2021-06-02 11:59] LABS: Urine Bacteria Absent (Absent); Urine Red Blood Cell 2+(6-10/hpf) (Absent); Urine Squamous Epithelial Cell Present (Absent); Urine White Blood Cell 3+(>20/hpf) (Absent)
[2021-06-02 13:51] LABS: C Reactive Protein 3.47 mg/L (<8.01)
[2021-06-02] MEDS ORDERED: Ondansetron 4 mg VIAL 2 MG/ML 2 ml VIAL IV ONE (13:54)
[2021-06-02] MEDS ORDERED: diPHENhydraMINE 25 mg TAB PO PRN (14:14)
[2021-06-02] MEDS ORDERED: Metoclopramide LIQUID 1 mg/ml 10 ml ORAL.SOLN (10 mg) PO PRN (14:14)
[2021-06-02] MEDS ORDERED: NS 0.9% 1000 ml BAG 1,000 ML IV SCH ×2 (14:15→22:27)
[2021-06-02 14:30] LABS: Troponin I 0.04 ng/mL (<0.03)
[2021-06-02] MEDS ORDERED: Metoclopramide LIQUID 1 mg/ml 10 ml ORAL.SOLN (10 mg) PEG TUBE PRN (14:49)
[2021-06-02] MEDS ORDERED: Ciprofloxacin 400mg IVPREMIX 400 MG/200 ML BAG IVPB SCH (15:00)
[2021-06-02] MEDS: Pantoprazole VIAL 40 MG VIAL IV SCH (15:41)
[2021-06-02] MEDS ORDERED: Metoprolol Tartrate 5 mg VIAL 5 ml VIAL (1 mg/ml) IV ONE (15:44)
[2021-06-02 16:01] LABS: Rapid COVID-19 Molecular Undetected (Undetected)
[2021-06-02 17:40] LABS: Potassium Redraw 4.1 mmol/L (3.5-5.0)
[2021-06-02] MEDS ORDERED: fentaNYL PATCH 25 MCG/HR 1 PATCH TRANSDERM SCH (18:30)
[2021-06-02] MEDS: fentaNYL Patch Check Q Shift NOTE FOLLOW UP SCH (19:48)
[2021-06-02] MEDS: Acetaminophen IV 1 GM/100ML 100 ML IV PRN (21:27)
[2021-06-02] MEDS: Dakins Solution 0.25% (1/2 STR.) 473 ML BTL TOPICAL SCH ×2 (21:28→21:30)
[2021-06-02 22:13] LABS: Anion Gap 8 mmol/L (2-11); Blood Urea Nitrogen 8 mg/dL (6-24); CO2 Carbon Dioxide 28 mmol/L (22-32); Calcium 10.3 mg/dL (8.6-10.3); Chloride 94 mmol/L (101-111); Glucose 84 mg/dL (70-100); Magnesium 1.4 mg/dL (1.9-2.7); Potassium 3.8 mmol/L (3.5-5.0); Sodium 130 mmol/L (135-145); eGFR CKD-EPI 100.3 (>60)
[2021-06-02 22:23] LABS: Troponin I 0.04 ng/mL (<0.03)
[2021-06-02] MEDS: Magnesium Sulfate IV 3 GM in NS 0.9% 100 ml BAG 100 ML IVPB ONE ×2 (22:30→23:37)
[2021-06-03] MEDS ORDERED: NS 0.9% 1000 ml BAG 1,000 ML IV ONE (01:24)
[2021-06-03 02:03] LABS: Hematocrit 32 % (35-47)
[2021-06-03] MEDS ORDERED: NS 0.9% 1000 ml BAG 1,000 ML IV SCH ×2 (03:00)
[2021-06-03] MEDS ORDERED: Lactated Ringers 500 ml BAG 500 ML IV ONE ×2 (03:43→06:15)
[2021-06-03] MEDS ORDERED: Lactated Ringers 1000 ml BAG 1,000 ML IV SCH (04:00)
[2021-06-03 04:22] LABS: ABS Eosinophils 0.2 10^3/ul (0-0.6); ABS Lymphocytes 2.3 10^3/ul (1.0-4.8); ABS Monocytes 0.4 10^3/ul (0-0.8); ABS Neutrophils 3.9 10^3/ul (1.5-7.7); Eosinophil % 3.1 %; Hematocrit 29 % (35-47); Hemoglobin 9.9 g/dL (12.0-16.0); Lymphocyte % 33.2 %; Mean Corpuscular HGB Conc 34 g/dL (31-36); Mean Corpuscular Hemoglobin 32 pg (27-31); Mean Corpuscular Volume 93 fL (80-97); Mean Platelet Volume 6.6 fL (7.4-10.4); Platelet Count 628 10^3/uL (150-450); Red Cell Distribution Width 15 % (10-15); White Blood Count 6.8 10^3/uL (3.5-10.8)
[2021-06-03 04:32] LABS: Albumin 2.8 g/dL (3.2-5.2); Calcium 9.2 mg/dL (8.6-10.3); Globulin 2.7 g/dL (2-4); Potassium 3.7 mmol/L (3.5-5.0); Total Bilirubin 0.4 mg/dL (0.2-1.0); Total Protein 5.5 g/dL (6.4-8.9); eGFR CKD-EPI 106.4 (>60)
[2021-06-03] MEDS: fentaNYL Patch Check Q Shift NOTE FOLLOW UP SCH ×3 (06:28→19:53)
[2021-06-03] MEDS ORDERED: Norepinephrine 16MCG/ML IVPRE 4,000 MCG/250 ML BAG IV SCH (08:00)
[2021-06-03] MEDS: Cefepime 2 GM in Dextrose 2 GM/50 ML BAG IV SCH ×2 (08:51→17:14)
[2021-06-03] MEDS ORDERED: cefTRIAXone 1 gm/50 mL NS BAG 1 GM/50 ML BAG IVPB SCH (09:00)
[2021-06-03 09:30] LABS: Magnesium 1.3 mg/dL (1.9-2.7); Phosphorus 2.9 mg/dL (2.5-5.0)
[2021-06-03] MEDS: Pantoprazole VIAL 40 MG VIAL IV SCH (09:44)
[2021-06-03] MEDS: Dakins Solution 0.25% (1/2 STR.) 473 ML BTL TOPICAL SCH ×2 (09:44→21:42)
[2021-06-03] MEDS ORDERED: Magnesium Sulfate IV 3 GM in NS 0.9% 100 ml BAG 100 ML IVPB ONE (10:04)
[2021-06-03] MEDS: metroNIDAZOLE IV 500 MG/100ML 500 MG/100 ML BAG IVPB SCH ×2 (10:10→17:49)
[2021-06-03] MEDS: Acetaminophen IV 1 GM/100ML 100 ML IV PRN ×2 (12:31→20:51)
[2021-06-03 14:32] LABS: ABS Eosinophils 0.2 10^3/ul (0-0.6); ABS Monocytes 0.5 10^3/ul (0-0.8); ABS Neutrophils 5.4 10^3/ul (1.5-7.7); Eosinophil % 2.4 %; Hematocrit 24 % (35-47); Hemoglobin 8.5 g/dL (12.0-16.0); Lymphocyte % 24.3 %; Mean Corpuscular HGB Conc 35 g/dL (31-36); Mean Corpuscular Hemoglobin 32 pg (27-31); Mean Corpuscular Volume 92 fL (80-97); Mean Platelet Volume 6.4 fL (7.4-10.4); Nucleated Red Blood Cells % 0.1; Platelet Count 521 10^3/uL (150-450); Red Blood Count 2.67 10^6 /uL (3.70-4.87); Red Cell Distribution Width 15 % (10-15); White Blood Count 8.2 10^3/uL (3.5-10.8)
[2021-06-04] MEDS: Cefepime 2 GM in Dextrose 2 GM/50 ML BAG IV SCH ×3 (00:19→16:01)
[2021-06-04] MEDS: metroNIDAZOLE IV 500 MG/100ML 500 MG/100 ML BAG IVPB SCH ×3 (03:26→18:10)
[2021-06-04] MEDS: Dakins Solution 0.25% (1/2 STR.) 473 ML BTL TOPICAL SCH ×2 (04:00→22:00)
[2021-06-04 05:38] LABS: Albumin 2.6 g/dL (3.2-5.2); Calcium 9.2 mg/dL (8.6-10.3); Globulin 2.6 g/dL (2-4); Magnesium 1.9 mg/dL (1.9-2.7); Potassium 3.5 mmol/L (3.5-5.0); Total Bilirubin 0.3 mg/dL (0.2-1.0); Total Protein 5.2 g/dL (6.4-8.9); eGFR CKD-EPI 109.7 (>60)
[2021-06-04 05:47] LABS: ABS Eosinophils 0.3 10^3/ul (0-0.6); ABS Monocytes 0.6 10^3/ul (0-0.8); ABS Neutrophils 5.4 10^3/ul (1.5-7.7); Eosinophil % 3.8 %; Hematocrit 25 % (35-47); Hemoglobin 8.7 g/dL (12.0-16.0); Lymphocyte % 23.6 %; Mean Corpuscular HGB Conc 34 g/dL (31-36); Mean Corpuscular Hemoglobin 32 pg (27-31); Mean Corpuscular Volume 92 fL (80-97); Mean Platelet Volume 6.5 fL (7.4-10.4); Nucleated Red Blood Cells % 0.1; Platelet Count 582 10^3/uL (150-450); Red Blood Count 2.77 10^6 /uL (3.70-4.87); Red Cell Distribution Width 15 % (10-15); White Blood Count 8.4 10^3/uL (3.5-10.8)
[2021-06-04] MEDS: Acetaminophen IV 1 GM/100ML 100 ML IV PRN (07:17)
[2021-06-04] MEDS: Pantoprazole VIAL 40 MG VIAL IV SCH (07:47)
[2021-06-04] MEDS ORDERED: Potassium Chloride LIQUID 20 MEQ/15 ML LIQUID PO ONE (09:56)
[2021-06-04] MEDS: fentaNYL Patch Check Q Shift NOTE FOLLOW UP SCH ×3 (11:09→19:14)
[2021-06-04] MEDS: Nystatin TOP POWDER 15 GM BTL TOPICAL SCH ×2 (16:20→21:45)
[2021-06-05] MEDS: Cefepime 2 GM in Dextrose 2 GM/50 ML BAG IV SCH ×4 (01:28→23:45)
[2021-06-05] MEDS: metroNIDAZOLE IV 500 MG/100ML 500 MG/100 ML BAG IVPB SCH ×3 (02:16→18:16)
[2021-06-05 06:35] LABS: Hematocrit 28 % (35-47); Hemoglobin 9.6 g/dL (12.0-16.0); Mean Corpuscular HGB Conc 34 g/dL (31-36); Mean Corpuscular Hemoglobin 32 pg (27-31); Mean Corpuscular Volume 93 fL (80-97); Mean Platelet Volume 6.6 fL (7.4-10.4); Platelet Count 627 10^3/uL (150-450); Red Blood Count 3.02 10^6 /uL (3.70-4.87); Red Cell Distribution Width 15 % (10-15); White Blood Count 8.9 10^3/uL (3.5-10.8)
[2021-06-05 06:52] LABS: Albumin 2.8 g/dL (3.2-5.2); Calcium 9.5 mg/dL (8.6-10.3); Globulin 2.7 g/dL (2-4); Magnesium 1.5 mg/dL (1.9-2.7); Potassium 3.9 mmol/L (3.5-5.0); Total Bilirubin 0.3 mg/dL (0.2-1.0); Total Protein 5.5 g/dL (6.4-8.9); eGFR CKD-EPI 114.8 (>60)
[2021-06-05] MEDS ORDERED: Magnesium Sulf 4 GM/100 ML IV 4,000 MG/100 ML BAG IVPB ONE (06:57)
[2021-06-05] MEDS: fentaNYL Patch Check Q Shift NOTE FOLLOW UP SCH ×2 (07:08→19:15)
[2021-06-05 08:04] LABS: C Reactive Protein 6.99 mg/L (<8.01)
[2021-06-05] MEDS: Nystatin TOP POWDER 15 GM BTL TOPICAL SCH ×3 (08:52→20:49)
[2021-06-05] MEDS: Dakins Solution 0.25% (1/2 STR.) 473 ML BTL TOPICAL SCH (09:32)
[2021-06-05] MEDS ORDERED: Ondansetron 4 mg VIAL 2 MG/ML 2 ml VIAL IV ONE (10:19)
[2021-06-06] MEDS: metroNIDAZOLE IV 500 MG/100ML 500 MG/100 ML BAG IVPB SCH (01:41)
[2021-06-06] MEDS ORDERED: Morphine 2 MG/ML SYRINGE IV ONE (02:19)
[2021-06-06 05:41] LABS: Calcium 9.3 mg/dL (8.6-10.3); Magnesium 1.8 mg/dL (1.9-2.7); Potassium 3.6 mmol/L (3.5-5.0)
[2021-06-06 05:46] LABS: Phosphorus 3.2 mg/dL (2.5-5.0); eGFR CKD-EPI 114.2 (>60)
[2021-06-06] MEDS: fentaNYL Patch Check Q Shift NOTE FOLLOW UP SCH ×2 (07:16→19:01)
[2021-06-06] MEDS ORDERED: Magnesium Sulfate IV 3 GM in NS 0.9% 100 ml BAG 100 ML IVPB ONE (07:23)
[2021-06-06 07:47] LABS: ABS Basophils 0.1 10^3/ul (0-0.2); ABS Eosinophils 0.4 10^3/ul (0-0.6); ABS Lymphocytes 2.2 10^3/ul (1.0-4.8); ABS Monocytes 0.6 10^3/ul (0-0.8); ABS Neutrophils 5.4 10^3/ul (1.5-7.7); Eosinophil % 4.6 %; Hematocrit 29 % (35-47); Hemoglobin 9.8 g/dL (12.0-16.0); Lymphocyte % 25.6 %; Mean Corpuscular HGB Conc 34 g/dL (31-36); Mean Corpuscular Hemoglobin 32 pg (27-31); Mean Corpuscular Volume 94 fL (80-97); Mean Platelet Volume 6.9 fL (7.4-10.4); Nucleated Red Blood Cells % 0.1; Platelet Count 659 10^3/uL (150-450); Red Blood Count 3.03 10^6 /uL (3.70-4.87); Red Cell Distribution Width 15 % (10-15); White Blood Count 8.7 10^3/uL (3.5-10.8)
[2021-06-06] MEDS: Cefepime 2 GM in Dextrose 2 GM/50 ML BAG IV SCH ×2 (08:08→16:15)
[2021-06-06] MEDS: Nystatin TOP POWDER 15 GM BTL TOPICAL SCH ×3 (08:22→21:45)
[2021-06-06] MEDS ORDERED: Pancrelipase 5,000 units CAP G TUBE ONE (11:14)
[2021-06-06] MEDS ORDERED: Sodium Bicarb 650 mg (ANTACID) TAB G TUBE ONE (11:14)
[2021-06-06] MEDS: fentaNYL PATCH 25 MCG/HR 1 PATCH TRANSDERM SCH (14:04)
[2021-06-07] MEDS: Cefepime 2 GM in Dextrose 2 GM/50 ML BAG IV SCH ×2 (01:26→08:25)
[2021-06-07] MEDS: fentaNYL Patch Check Q Shift NOTE FOLLOW UP SCH ×2 (07:18→19:08)
[2021-06-07 07:41] LABS: Calcium 9.4 mg/dL (8.6-10.3); Magnesium 1.7 mg/dL (1.9-2.7); Phosphorus 3.5 mg/dL (2.5-5.0); Potassium 3.6 mmol/L (3.5-5.0); eGFR CKD-EPI 114.8 (>60)
[2021-06-07] MEDS: Nystatin TOP POWDER 15 GM BTL TOPICAL SCH ×3 (08:32→23:35)
[2021-06-07] MEDS ORDERED: Magnesium Sulfate IV 3 GM in NS 0.9% 100 ml BAG 100 ML IVPB ONE (15:00)
[2021-06-07] MEDS: Metoclopramide LIQUID 1 mg/ml 10 ml ORAL.SOLN (10 mg) PO PRN (16:19)
[2021-06-07] MEDS ORDERED: Morphine 2 MG/ML SYRINGE IV ONE (20:39)
[2021-06-08 06:57] LABS: Direct Bilirubin 0.1 mg/dL (0.03-0.18); Globulin 2.9 g/dL (2-4); Indirect Bilirubin 0.1 mg/dL (0.3-1.0); Total Bilirubin 0.2 mg/dL (0.2-1.0); Total Protein 5.9 g/dL (6.4-8.9)
[2021-06-08] MEDS: fentaNYL Patch Check Q Shift NOTE FOLLOW UP SCH ×2 (07:29→19:26)
[2021-06-08] MEDS: Nystatin TOP POWDER 15 GM BTL TOPICAL SCH ×3 (09:57→20:18)
[2021-06-08] MEDS ORDERED: Pancrelipase 5,000 units CAP G TUBE ONE (11:28)
[2021-06-08] MEDS ORDERED: Sodium Bicarb 650 mg (ANTACID) TAB G TUBE ONE (11:28)
[2021-06-08] MEDS: Metoclopramide LIQUID 1 mg/ml 10 ml ORAL.SOLN (10 mg) PO PRN ×2 (14:09→21:43)
[2021-06-09] MEDS: fentaNYL Patch Check Q Shift NOTE FOLLOW UP SCH ×2 (06:54→18:50)
[2021-06-09] MEDS: Nystatin TOP POWDER 15 GM BTL TOPICAL SCH ×3 (09:12→23:22)
[2021-06-09] MEDS: fentaNYL PATCH 25 MCG/HR 1 PATCH TRANSDERM SCH (14:01)
[2021-06-10 06:48] LABS: ABS Basophils 0.1 10^3/ul (0-0.2); ABS Eosinophils 0.5 10^3/ul (0-0.6); ABS Lymphocytes 2.2 10^3/ul (1.0-4.8); ABS Monocytes 0.6 10^3/ul (0-0.8); ABS Neutrophils 4.8 10^3/ul (1.5-7.7); Eosinophil % 5.9 %; Hematocrit 33 % (35-47); Hemoglobin 11.5 g/dL (12.0-16.0); Lymphocyte % 27.1 %; Mean Corpuscular HGB Conc 35 g/dL (31-36); Mean Corpuscular Hemoglobin 32 pg (27-31); Mean Corpuscular Volume 93 fL (80-97); Mean Platelet Volume 6.3 fL (7.4-10.4); Platelet Count 641 10^3/uL (150-450); Red Blood Count 3.57 10^6 /uL (3.70-4.87); Red Cell Distribution Width 15 % (10-15); White Blood Count 8.1 10^3/uL (3.5-10.8)
[2021-06-10 07:01] LABS: Calcium 11.2 mg/dL (8.6-10.3)
[2021-06-10] MEDS: fentaNYL Patch Check Q Shift NOTE FOLLOW UP SCH ×2 (07:22→19:10)
[2021-06-10] MEDS ORDERED: Lactated Ringers 1000 ml BAG 1,000 ML IV ONE (08:26)
[2021-06-10 09:14] LABS: Magnesium 1.2 mg/dL (1.9-2.7); Phosphorus 4.9 mg/dL (2.5-5.0)
[2021-06-10] MEDS: Metoclopramide LIQUID 1 mg/ml 10 ml ORAL.SOLN (10 mg) PO PRN (10:24)
[2021-06-10] MEDS: Nystatin TOP POWDER 15 GM BTL TOPICAL SCH ×3 (10:37→20:59)
[2021-06-10] MEDS ORDERED: Magnesium Sulf 4 GM/100 ML IV 4,000 MG/100 ML BAG IVPB ONE (13:00)
[2021-06-10] MEDS ORDERED: Al Hydrox/Mg Hydrox/Simet LIQ 30 ML UDC PO PRN (16:48)
[2021-06-10] MEDS ORDERED: Ondansetron 4 mg VIAL 2 MG/ML 2 ml VIAL IV PRN (16:50)
[2021-06-10 17:57] LABS: ABS Basophils 0.1 10^3/ul (0-0.2); ABS Eosinophils 0.3 10^3/ul (0-0.6); ABS Lymphocytes 2.2 10^3/ul (1.0-4.8); ABS Monocytes 0.5 10^3/ul (0-0.8); ABS Neutrophils 9.1 10^3/ul (1.5-7.7); Eosinophil % 2.2 %; Hematocrit 34 % (35-47); Hemoglobin 11.6 g/dL (12.0-16.0); Lymphocyte % 18.1 %; Mean Corpuscular HGB Conc 34 g/dL (31-36); Mean Corpuscular Hemoglobin 32 pg (27-31); Mean Corpuscular Volume 92 fL (80-97); Mean Platelet Volume 6.3 fL (7.4-10.4); Nucleated Red Blood Cells % 0.1; Platelet Count 704 10^3/uL (150-450); Red Blood Count 3.67 10^6 /uL (3.70-4.87); Red Cell Distribution Width 15 % (10-15); White Blood Count 12.2 10^3/uL (3.5-10.8)
[2021-06-10 18:12] LABS: Calcium 11.7 mg/dL (8.6-10.3); Magnesium 2.1 mg/dL (1.9-2.7); Potassium 3.8 mmol/L (3.5-5.0)
[2021-06-10 18:18] LABS: eGFR CKD-EPI 116.8 (>60)
[2021-06-10] MEDS ORDERED: Lactated Ringers 500 ml BAG 500 ML IV ONE (19:58)
[2021-06-11] MEDS: fentaNYL Patch Check Q Shift NOTE FOLLOW UP SCH ×2 (06:59→19:51)
[2021-06-11 07:12] LABS: ABS Eosinophils 0.4 10^3/ul (0-0.6); ABS Lymphocytes 2.2 10^3/ul (1.0-4.8); ABS Monocytes 0.7 10^3/ul (0-0.8); ABS Neutrophils 4.8 10^3/ul (1.5-7.7); Eosinophil % 4.4 %; Hematocrit 33 % (35-47); Hemoglobin 11.4 g/dL (12.0-16.0); Lymphocyte % 27.6 %; Mean Corpuscular HGB Conc 34 g/dL (31-36); Mean Corpuscular Hemoglobin 32 pg (27-31); Mean Corpuscular Volume 93 fL (80-97); Mean Platelet Volume 6.5 fL (7.4-10.4); Nucleated Red Blood Cells % 0.1; Platelet Count 648 10^3/uL (150-450); Red Blood Count 3.56 10^6 /uL (3.70-4.87); Red Cell Distribution Width 15 % (10-15); White Blood Count 8.1 10^3/uL (3.5-10.8)
[2021-06-11 07:22] LABS: Albumin 3.3 g/dL (3.2-5.2); Calcium 10.8 mg/dL (8.6-10.3); Globulin 3.4 g/dL (2-4); Potassium 3.5 mmol/L (3.5-5.0); Total Bilirubin 0.3 mg/dL (0.2-1.0); Total Protein 6.7 g/dL (6.4-8.9); eGFR CKD-EPI 116.8 (>60)
[2021-06-11] MEDS ORDERED: Magnesium Sulfate 2 gm BAG 2 GM/50 ML BAG IVPB ONE (08:25)
[2021-06-11] MEDS: Nystatin TOP POWDER 15 GM BTL TOPICAL SCH ×3 (10:12→15:11)
[2021-06-11 21:18] LABS: Hematocrit 31 % (35-47); Hemoglobin 10.6 g/dL (12.0-16.0); Mean Corpuscular HGB Conc 35 g/dL (31-36); Mean Corpuscular Hemoglobin 32 pg (27-31); Mean Corpuscular Volume 92 fL (80-97); Mean Platelet Volume 6.2 fL (7.4-10.4); Platelet Count 622 10^3/uL (150-450); Red Blood Count 3.34 10^6 /uL (3.70-4.87); Red Cell Distribution Width 15 % (10-15); White Blood Count 8.1 10^3/uL (3.5-10.8)
[2021-06-11 21:36] LABS: Albumin 3.2 g/dL (3.2-5.2); Direct Bilirubin 0.1 mg/dL (0.03-0.18); Globulin 3.3 g/dL (2-4); Indirect Bilirubin 0.2 mg/dL (0.3-1.0); Total Bilirubin 0.3 mg/dL (0.2-1.0); Total Protein 6.5 g/dL (6.4-8.9)
[2021-06-12 06:13] LABS: ABS Basophils 0.1 10^3/ul (0-0.2); ABS Eosinophils 0.3 10^3/ul (0-0.6); ABS Monocytes 0.7 10^3/ul (0-0.8); ABS Neutrophils 3.4 10^3/ul (1.5-7.7); Eosinophil % 5.2 %; Hematocrit 31 % (35-47); Hemoglobin 10.8 g/dL (12.0-16.0); Lymphocyte % 30.5 %; Mean Corpuscular HGB Conc 34 g/dL (31-36); Mean Corpuscular Hemoglobin 32 pg (27-31); Mean Corpuscular Volume 92 fL (80-97); Mean Platelet Volume 6.2 fL (7.4-10.4); Platelet Count 614 10^3/uL (150-450); Red Blood Count 3.41 10^6 /uL (3.70-4.87); Red Cell Distribution Width 15 % (10-15); White Blood Count 6.4 10^3/uL (3.5-10.8)
[2021-06-12 06:33] LABS: Albumin 3.2 g/dL (3.2-5.2); Calcium 10.4 mg/dL (8.6-10.3); Globulin 3.2 g/dL (2-4); Magnesium 1.7 mg/dL (1.9-2.7); Potassium 3.4 mmol/L (3.5-5.0); Total Bilirubin 0.3 mg/dL (0.2-1.0); Total Protein 6.4 g/dL (6.4-8.9); eGFR CKD-EPI 111.2 (>60)
[2021-06-12] MEDS: fentaNYL Patch Check Q Shift NOTE FOLLOW UP SCH ×2 (07:30→19:18)
[2021-06-12] MEDS: Nystatin TOP POWDER 15 GM BTL TOPICAL SCH ×3 (09:46→20:53)
[2021-06-12] MEDS ORDERED: Morphine 2 MG/ML SYRINGE IV ONE (12:12)
[2021-06-12] MEDS: fentaNYL PATCH 25 MCG/HR 1 PATCH TRANSDERM SCH (14:53)
[2021-06-12] MEDS ORDERED: diPHENhydraMINE 25 mg TAB PO ONE (22:38)
[2021-06-13] MEDS: fentaNYL Patch Check Q Shift NOTE FOLLOW UP SCH (07:16)
[2021-06-13 07:25] LABS: ABS Basophils 0.1 10^3/ul (0-0.2); ABS Eosinophils 0.3 10^3/ul (0-0.6); ABS Lymphocytes 1.6 10^3/ul (1.0-4.8); ABS Monocytes 0.7 10^3/ul (0-0.8); ABS Neutrophils 4.7 10^3/ul (1.5-7.7); Eosinophil % 4.3 %; Hematocrit 32 % (35-47); Hemoglobin 11.3 g/dL (12.0-16.0); Lymphocyte % 21.4 %; Mean Corpuscular HGB Conc 35 g/dL (31-36); Mean Corpuscular Hemoglobin 33 pg (27-31); Mean Corpuscular Volume 93 fL (80-97); Mean Platelet Volume 6.5 fL (7.4-10.4); Nucleated Red Blood Cells % 0.1; Platelet Count 571 10^3/uL (150-450); Red Blood Count 3.44 10^6 /uL (3.70-4.87); Red Cell Distribution Width 15 % (10-15); White Blood Count 7.3 10^3/uL (3.5-10.8)
[2021-06-13 07:47] LABS: Albumin 3.3 g/dL (3.2-5.2); Calcium 10.6 mg/dL (8.6-10.3); Globulin 3.3 g/dL (2-4); Magnesium 1.4 mg/dL (1.9-2.7); Potassium 3.1 mmol/L (3.5-5.0); Total Bilirubin 0.3 mg/dL (0.2-1.0); Total Protein 6.6 g/dL (6.4-8.9); eGFR CKD-EPI 115.4 (>60)
[2021-06-13] MEDS ORDERED: Magnesium Sulfate IV 3 GM in NS 0.9% 100 ml BAG 100 ML IVPB ONE (08:28)
[2021-06-13] MEDS: Nystatin TOP POWDER 15 GM BTL TOPICAL SCH ×2 (09:35→13:49)
[2021-06-13] MEDS: KCL 20 MEQ/100 ML IVPREMIX 20 MEQ/100 ML BAG IV SCH ×2 (09:59→10:00)
[2021-06-13] MEDS ORDERED: Potassium Chloride LIQUID 20 MEQ/15 ML LIQUID PO ONE (10:03)
[2021-06-13 15:48] VITALS: BP 124/80
[2021-06-15] MEDS ORDERED: fentaNYL PATCH 25 MCG/HR 1 PATCH TRANSDERM SCH (14:00)
== END 2021-06-13 17:58 | disposition swing bed (61) | DRG 871 ==
LOC: ED 09:00 → EDHOLD 14:35 → SUATTDRO 14:35 → EDHOLD 17:04 → MEDTELE 17:40 → ICU 06-03 04:40 → SSU 06-04 13:02
PROVIDERS: ADMIT Internal Medicine; ATTEND Hospitalist

== ENCOUNTER 2021-06-13 15:35 | Inpatient (IN) ==
[2021-06-13] MEDS ORDERED: Ondansetron 4 mg VIAL 2 MG/ML 2 ml VIAL IV PRN (18:35)
[2021-06-13] MEDS ORDERED: Al Hydrox/Mg Hydrox/Simet LIQ 30 ML UDC PO PRN (18:35)
[2021-06-13] MEDS ORDERED: Metoclopramide LIQUID 1 mg/ml 10 ml ORAL.SOLN (10 mg) PO PRN (18:39)
[2021-06-13] MEDS: fentaNYL Patch Check Q Shift NOTE FOLLOW UP SCH (19:13)
[2021-06-13] MEDS: Nystatin TOP POWDER 15 GM BTL TOPICAL SCH (22:19)
[2021-06-13] MEDS: diPHENhydraMINE 25 mg TAB PO PRN (23:55)
[2021-06-14] MEDS: fentaNYL Patch Check Q Shift NOTE FOLLOW UP SCH ×2 (07:22→19:29)
[2021-06-14 07:26] LABS: Calcium 10.5 mg/dL (8.6-10.3); Magnesium 1.6 mg/dL (1.9-2.7); Potassium 3.6 mmol/L (3.5-5.0); eGFR CKD-EPI 113.5 (>60)
[2021-06-14] MEDS: Nystatin TOP POWDER 15 GM BTL TOPICAL SCH ×2 (09:44→13:57)
[2021-06-14] MEDS: diPHENhydraMINE 25 mg TAB PO PRN (22:46)
[2021-06-15] MEDS: Nystatin TOP POWDER 15 GM BTL TOPICAL SCH ×4 (01:22→23:44)
[2021-06-15] MEDS: fentaNYL Patch Check Q Shift NOTE FOLLOW UP SCH ×2 (07:18→18:55)
[2021-06-15] MEDS ORDERED: Magnesium Sulfate 2 gm BAG 2 GM/50 ML BAG IVPB ONE (07:49)
[2021-06-15 08:47] LABS: Albumin 3.5 g/dL (3.2-5.2); Albumin/Globulin Ratio 0.9 (1-3); Calcium 10.9 mg/dL (8.6-10.3); Globulin 3.8 g/dL (2-4); Magnesium 1.5 mg/dL (1.9-2.7); Potassium 3.4 mmol/L (3.5-5.0); Total Bilirubin 0.4 mg/dL (0.2-1.0); Total Protein 7.3 g/dL (6.4-8.9); eGFR CKD-EPI 106.4 (>60)
[2021-06-15] MEDS ORDERED: Potassium Chlor 20 meq TAB.ER PO ONE (14:00)
[2021-06-15] MEDS: fentaNYL PATCH 25 MCG/HR 1 PATCH TRANSDERM SCH (14:27)
[2021-06-15] MEDS ORDERED: Potassium Chloride LIQUID 20 MEQ/15 ML LIQUID PO ONE (15:00)
[2021-06-15] MEDS: diPHENhydraMINE 25 mg TAB PO PRN (22:33)
[2021-06-16 05:37] LABS: Calcium 10.6 mg/dL (8.6-10.3); Magnesium 1.7 mg/dL (1.9-2.7); Potassium 3.7 mmol/L (3.5-5.0); eGFR CKD-EPI 106.8 (>60)
[2021-06-16] MEDS: fentaNYL Patch Check Q Shift NOTE FOLLOW UP SCH ×2 (06:55→18:50)
[2021-06-16] MEDS: Nystatin TOP POWDER 15 GM BTL TOPICAL SCH ×3 (07:49→22:09)
[2021-06-16] MEDS ORDERED: Magnesium Sulf 4 GM/100 ML IV 4,000 MG/100 ML BAG IVPB ONE (08:22)
[2021-06-17] MEDS: fentaNYL Patch Check Q Shift NOTE FOLLOW UP SCH ×2 (06:44→18:59)
[2021-06-17 06:52] LABS: Calcium 10.4 mg/dL (8.6-10.3); Magnesium 1.8 mg/dL (1.9-2.7); Potassium 3.8 mmol/L (3.5-5.0); eGFR CKD-EPI 103.9 (>60)
[2021-06-17] MEDS: Nystatin TOP POWDER 15 GM BTL TOPICAL SCH ×2 (08:11→14:04)
[2021-06-17] MEDS: diPHENhydraMINE 25 mg TAB PO PRN (22:48)
[2021-06-18] MEDS: Nystatin TOP POWDER 15 GM BTL TOPICAL SCH ×4 (02:26→20:50)
[2021-06-18] MEDS: fentaNYL Patch Check Q Shift NOTE FOLLOW UP SCH ×2 (07:20→19:10)
[2021-06-18] MEDS: fentaNYL PATCH 25 MCG/HR 1 PATCH TRANSDERM SCH (13:58)
[2021-06-18] MEDS: diPHENhydraMINE 25 mg TAB PO PRN (20:47)
[2021-06-19 06:34] LABS: ABS Basophils 0.1 10^3/ul (0-0.2); ABS Eosinophils 0.6 10^3/ul (0-0.6); ABS Lymphocytes 2.2 10^3/ul (1.0-4.8); ABS Monocytes 0.7 10^3/ul (0-0.8); ABS Neutrophils 3.4 10^3/ul (1.5-7.7); Eosinophil % 8.8 %; Hematocrit 36 % (35-47); Lymphocyte % 31.8 %; Mean Corpuscular HGB Conc 34 g/dL (31-36); Mean Corpuscular Hemoglobin 32 pg (27-31); Mean Corpuscular Volume 96 fL (80-97); Mean Platelet Volume 6.9 fL (7.4-10.4); Platelet Count 521 10^3/uL (150-450); Red Blood Count 3.71 10^6 /uL (3.70-4.87); Red Cell Distribution Width 14 % (10-15); White Blood Count 6.9 10^3/uL (3.5-10.8)
[2021-06-19 06:36] LABS: CO2 Carbon Dioxide 25 mmol/L (22-32); Chloride 97 mmol/L (101-111); Sodium 131 mmol/L (135-145)
[2021-06-19 06:41] LABS: Blood Urea Nitrogen 15 mg/dL (6-24); Glucose 92 mg/dL (70-100); eGFR CKD-EPI 97.1 (>60)
[2021-06-19 06:47] LABS: Anion Gap 9 mmol/L (2-11)
[2021-06-19] MEDS: fentaNYL Patch Check Q Shift NOTE FOLLOW UP SCH ×2 (06:54→19:05)
[2021-06-19] MEDS: Nystatin TOP POWDER 15 GM BTL TOPICAL SCH ×3 (08:10→20:50)
[2021-06-19] MEDS ORDERED: COVID-19 VACCINE, MRNA(PFIZER)/PF 30 MCG/0.3 ML IM ONE (13:05)
[2021-06-20] MEDS: diPHENhydraMINE 25 mg TAB PO PRN (02:54)
[2021-06-20 06:18] LABS: Albumin 3.1 g/dL (3.2-5.2); Calcium 10.1 mg/dL (8.6-10.3); Globulin 3.1 g/dL (2-4); Potassium 4.2 mmol/L (3.5-5.0); Total Bilirubin 0.3 mg/dL (0.2-1.0); Total Protein 6.2 g/dL (6.4-8.9); eGFR CKD-EPI 104.7 (>60)
[2021-06-20] MEDS: fentaNYL Patch Check Q Shift NOTE FOLLOW UP SCH ×2 (06:50→18:46)
[2021-06-20] MEDS: Nystatin TOP POWDER 15 GM BTL TOPICAL SCH ×3 (08:43→21:16)
[2021-06-20 09:12] LABS: ABS Basophils 0.1 10^3/ul (0-0.2); ABS Eosinophils 0.6 10^3/ul (0-0.6); ABS Lymphocytes 1.8 10^3/ul (1.0-4.8); ABS Monocytes 0.6 10^3/ul (0-0.8); ABS Neutrophils 3.4 10^3/ul (1.5-7.7); Eosinophil % 9.8 %; Hematocrit 30 % (35-47); Hemoglobin 10.2 g/dL (12.0-16.0); Lymphocyte % 27.8 %; Mean Corpuscular HGB Conc 34 g/dL (31-36); Mean Corpuscular Hemoglobin 32 pg (27-31); Mean Corpuscular Volume 94 fL (80-97); Mean Platelet Volume 7.2 fL (7.4-10.4); Nucleated Red Blood Cells % 0.2; Platelet Count 543 10^3/uL (150-450); Red Blood Count 3.24 10^6 /uL (3.70-4.87); Red Cell Distribution Width 14 % (10-15); White Blood Count 6.4 10^3/uL (3.5-10.8)
[2021-06-20] MEDS ORDERED: COVID-19 VACCINE, MRNA(PFIZER)/PF 30 MCG/0.3 ML IM ONE (14:00)
[2021-06-20 15:09] LABS: Rapid COVID-19 Molecular Undetected (Undetected)
[2021-06-20] MEDS: Mupirocin 2% OINT TUBE TOPICAL SCH (21:19)
[2021-06-21 06:00] LABS: Hematocrit 31 % (35-47); Hemoglobin 10.7 g/dL (12.0-16.0)
[2021-06-21 06:01] LABS: ABS Basophils 0.1 10^3/ul (0-0.2); ABS Eosinophils 0.6 10^3/ul (0-0.6); ABS Lymphocytes 1.9 10^3/ul (1.0-4.8); ABS Monocytes 0.6 10^3/ul (0-0.8); Eosinophil % 9.8 %; Hematocrit 30 % (35-47); Hemoglobin 10.4 g/dL (12.0-16.0); Lymphocyte % 30.3 %; Mean Corpuscular HGB Conc 35 g/dL (31-36); Mean Corpuscular Hemoglobin 33 pg (27-31); Mean Corpuscular Volume 93 fL (80-97); Mean Platelet Volume 6.9 fL (7.4-10.4); Nucleated Red Blood Cells % 0.1; Platelet Count 564 10^3/uL (150-450); Red Blood Count 3.18 10^6 /uL (3.70-4.87); Red Cell Distribution Width 14 % (10-15); White Blood Count 6.1 10^3/uL (3.5-10.8)
[2021-06-21 06:16] LABS: Calcium 10.6 mg/dL (8.6-10.3); Potassium 3.4 mmol/L (3.5-5.0); eGFR CKD-EPI 102.4 (>60)
[2021-06-21] MEDS ORDERED: KCL 20 MEQ/100 ML IVPREMIX 20 MEQ/100 ML BAG IV ONE (07:28)
[2021-06-21 07:47] LABS: Magnesium 1.3 mg/dL (1.9-2.7)
[2021-06-21] MEDS: fentaNYL Patch Check Q Shift NOTE FOLLOW UP SCH ×2 (08:00→19:25)
[2021-06-21 08:36] VITALS: BP 111/76
[2021-06-21] MEDS: Nystatin TOP POWDER 15 GM BTL TOPICAL SCH ×3 (12:02→23:49)
[2021-06-21] MEDS ORDERED: Midazolam 10 mg/10 ml VIAL 1 mg/ml 10 ml VIAL (10 mg) ONE (12:14)
[2021-06-21] MEDS ORDERED: fentaNYL 100 mcg/2 ml 50 MCG/ML VIAL ONE (12:14)
[2021-06-21] MEDS: fentaNYL PATCH 25 MCG/HR 1 PATCH TRANSDERM SCH (14:32)
[2021-06-21] MEDS: Mupirocin 2% OINT TUBE TOPICAL SCH ×2 (15:12→23:49)
[2021-06-21] MEDS ORDERED: Potassium Chlor 20 meq TAB.ER PO ONE (15:58)
[2021-06-21] MEDS ORDERED: Potassium Chloride LIQUID 20 MEQ/15 ML LIQUID PO ONE (17:13)
[2021-06-21] MEDS: Potassium Chloride LIQUID 20 MEQ/15 ML LIQUID PO SCH (17:19)
[2021-06-22] MEDS: fentaNYL Patch Check Q Shift NOTE FOLLOW UP SCH (07:26)
[2021-06-22] MEDS ORDERED: Magnesium Sulfate 2 gm BAG 2 GM/50 ML BAG IVPB ONE (07:42)
[2021-06-22] MEDS: Mupirocin 2% OINT TUBE TOPICAL SCH (08:23)
[2021-06-22] MEDS: Nystatin TOP POWDER 15 GM BTL TOPICAL SCH (08:23)
[2021-06-22] MEDS: Potassium Chloride LIQUID 20 MEQ/15 ML LIQUID PO SCH (08:24)
== END 2021-06-22 16:20 | disposition home or self-care (01) | DRG 392 ==
LOC: SSU 17:58 → SUATTDRO 17:58
PROVIDERS: ADMIT Hospitalist; ATTEND Internal Medicine

== ENCOUNTER 2022-03-23 00:50 | Inpatient (IN) ==
[2022-03-23] MEDS ORDERED: Ondansetron 4 mg VIAL 2 MG/ML 2 ml VIAL IV ONE (01:13)
[2022-03-23] MEDS ORDERED: Acetaminophen IV 1 GM/100ML 1,000 MG/100 ML BAG IV ONE ×2 (01:18→01:19)
[2022-03-23] MEDS ORDERED: metroNIDAZOLE IV 500 MG/100ML 500 MG/100 ML BAG IVPB ONE (01:20)
[2022-03-23] MEDS ORDERED: Piperacillin/Tazobac 3.375 GM BAG ONE (01:22)
[2022-03-23] MEDS ORDERED: NS 0.9% IV ONE (01:26)
[2022-03-23] MEDS: NS 0.9% 1000 ml BAG 1,000 ML IV ONE ×2 (01:30→02:17)
[2022-03-23 01:46] LABS: ABS Lymphocytes 3.1 10^3/ul (1.0-4.8); ABS Neutrophils 5.8 10^3/ul (1.5-7.7); Eosinophil % 0.1 %; Hematocrit 41 % (35-47); Lymphocyte % 34.8 %; Mean Corpuscular HGB Conc 34 g/dL (31-36); Mean Corpuscular Hemoglobin 32 pg (27-31); Mean Corpuscular Volume 95 fL (80-97); Mean Platelet Volume 7.4 fL (7.4-10.4); Nucleated Red Blood Cells % 0.1; Platelet Count 261 10^3/uL (150-450); Red Blood Count 4.38 10^6 /uL (3.70-4.87); Red Cell Distribution Width 13 % (10-15); White Blood Count 8.9 10^3/uL (3.5-10.8)
[2022-03-23] MEDS ORDERED: Piperacillin/Tazobac ADVAN 3.375 GM in NS 0.9% 100 ml BAG 100 ML IV ONE (01:47)
[2022-03-23] MEDS ORDERED: Fluticasone NASAL SPRAY 50MCG 16 gm SPRAY BTL BOTH NARES ONE (02:00)
[2022-03-23 02:53] LABS: Albumin 4.2 g/dL (3.2-5.2); CO2 Carbon Dioxide 21 mmol/L (22-32); Calcium 9.9 mg/dL (8.6-10.3); Chloride 101 mmol/L (101-111); Sodium 129 mmol/L (135-145)
[2022-03-23 02:55] LABS: Anion Gap 7 mmol/L (2-11)
[2022-03-23 02:59] LABS: ALT 117 U/L (7-52); Albumin/Globulin Ratio 1.4 (1-3); Alkaline Phosphatase 272 U/L (35-149); Blood Urea Nitrogen 13 mg/dL (6-24); C Reactive Protein 71.11 mg/L (<8.01); Globulin 3.1 g/dL (2-4); Glucose 96 mg/dL (70-100); Lipase < 10 U/L (11.0-82.0); Total Protein 7.3 g/dL (6.4-8.9); eGFR CKD-EPI 83.9 (>60)
[2022-03-23] MEDS ORDERED: NS 0.9% 1000 ml BAG 2,000 ML IV ONE (03:08)
[2022-03-23 03:10] LABS: HCG Pregnancy 2.24 mIU/mL
[2022-03-23] MEDS ORDERED: Iodixanol (CONTRAST) 320 MG/ML 100 ML SDV IV ONE (03:11)
[2022-03-23 03:26] LABS: ABS Lymphocytes 1.6 10^3/ul (1.0-4.8); ABS Monocytes 0.1 10^3/ul (0-0.8); ABS Neutrophils 6.8 10^3/ul (1.5-7.7); Eosinophil % 0.3 %; Hematocrit 34 % (35-47); Hemoglobin 11.4 g/dL (12.0-16.0); Lymphocyte % 18.6 %; Mean Corpuscular HGB Conc 34 g/dL (31-36); Mean Corpuscular Hemoglobin 32 pg (27-31); Mean Corpuscular Volume 96 fL (80-97); Platelet Count 220 10^3/uL (150-450); Red Blood Count 3.54 10^6 /uL (3.70-4.87); Red Cell Distribution Width 13 % (10-15); White Blood Count 8.6 10^3/uL (3.5-10.8)
[2022-03-23] MEDS ORDERED: Pantoprazole VIAL 40 MG VIAL IV ONE (03:50)
[2022-03-23] MEDS ORDERED: Lactated Ringers 1000 ml BAG 1,000 ML IV ONE (04:05)
[2022-03-23 04:16] LABS: Magnesium 1.1 mg/dL (1.9-2.7); Potassium Redraw 2.8 mmol/L (3.5-5.0)
[2022-03-23] MEDS ORDERED: Magnesium Sulfate 2 gm BAG 2 GM/50 ML BAG IVPB ONE ×2 (04:26→06:27)
[2022-03-23 04:30] LABS: High Sensitivity Troponin 1 Hr 31 pg/mL (<15)
[2022-03-23] MEDS ORDERED: Potassium EFFERVES 25 meq TAB PO ONE (05:12)
[2022-03-23] MEDS ORDERED: KCL 20 MEQ/100 ML IVPREMIX 20 MEQ/100 ML BAG IV SCH (06:00)
[2022-03-23] MEDS ORDERED: Hydrocortisone INJ 100 MG/2ML 2 ML VIAL IV ONE (06:04)
[2022-03-23] MEDS ORDERED: NS 0.9% 1000 ml BAG 1,000 ML IV SCH ×2 (06:15→23:30)
[2022-03-23] MEDS ORDERED: Albuterol HFA INHALER 8 gm MDI INH PRN (06:25)
[2022-03-23] MEDS: Ondansetron 4 mg VIAL 2 MG/ML 2 ml VIAL IV PRN ×2 (06:40→15:14)
[2022-03-23] MEDS ORDERED: Zosyn per Pharmacy NOTE FOLLOW UP SCH (07:00)
[2022-03-23] MEDS: ZOSYN 3.375 GM Q8H per EXTENDED INFUSION IV SCH ×2 (07:32→15:14)
[2022-03-23] MEDS ORDERED: Potassium Chloride LIQUID 20 MEQ/15 ML LIQUID PO ONE (07:46)
[2022-03-23] MEDS: Enoxaparin 40 MG/0.4 ML SYR SUBCUT SCH (07:47)
[2022-03-23 07:57] LABS: Urine Appearance Clear; Urine Bilirubin Negative (Negative); Urine Blood 1+ (Negative); Urine Color Yellow; Urine Glucose Negative (Negative); Urine Ketones Negative (Negative); Urine Nitrite Negative (Negative); Urine Protein Negative (Negative); Urine Urobilinogen Negative (Negative)
[2022-03-23 08:00] LABS: Urine Bacteria Absent (Absent); Urine Red Blood Cell 1+(3-5/hpf) (Absent); Urine Squamous Epithelial Cell Present (Absent); Urine White Blood Cell Trace(0-5/hpf) (Absent)
[2022-03-23 08:10] LABS: Urine Benzodiazepine Screen None Detected (None Detect); Urine Cannabinoids Screen Presumptive Positive (None Detect); Urine Opiates Screen None Detected (None Detect)
[2022-03-23] MEDS: Cholestyramine Resin 4 GM POWDER PO SCH ×3 (08:25→21:56)
[2022-03-23] MEDS: fentaNYL PATCH 25 MCG/HR 1 PATCH TRANSDERM SCH (09:26)
[2022-03-23 10:43] LABS: Calcium 7.8 mg/dL (8.6-10.3); Magnesium 3.7 mg/dL (1.9-2.7); Potassium 3.2 mmol/L (3.5-5.0); eGFR CKD-EPI 81.5 (>60)
[2022-03-23] MEDS ORDERED: Potassium Chlor 20 meq TAB.ER PO ONE ×2 (13:12→18:11)
[2022-03-23] MEDS ORDERED: Hydrocortisone INJ 100 MG/2ML 2 ML VIAL IV SCH (14:00)
[2022-03-23] MEDS: Hydrocortisone INJ 100 MG/2ML 2 ML VIAL IV SCH ×2 (15:07→21:55)
[2022-03-23] MEDS ORDERED: Lactated Ringers 500 ml BAG 500 ML IV ONE (18:13)
[2022-03-23 18:54] LABS: Hematocrit 34 % (35-47); Hemoglobin 11.3 g/dL (12.0-16.0)
[2022-03-23 19:32] LABS: Calcium 8.1 mg/dL (8.6-10.3); Potassium 3.6 mmol/L (3.5-5.0); eGFR CKD-EPI 99.7 (>60)
[2022-03-24] MEDS: ZOSYN 3.375 GM Q8H per EXTENDED INFUSION IV SCH ×5 (03:05→22:26)
[2022-03-24] MEDS: Hydrocortisone INJ 100 MG/2ML 2 ML VIAL IV SCH ×3 (06:00→17:59)
[2022-03-24 06:39] LABS: ABS Lymphocytes 2.7 10^3/ul (1.0-4.8); ABS Monocytes 0.4 10^3/ul (0-0.8); ABS Neutrophils 7.3 10^3/ul (1.5-7.7); Eosinophil % 0.1 %; Hematocrit 30 % (35-47); Mean Corpuscular HGB Conc 34 g/dL (31-36); Mean Corpuscular Hemoglobin 32 pg (27-31); Mean Corpuscular Volume 96 fL (80-97); Mean Platelet Volume 7.2 fL (7.4-10.4); Platelet Count 194 10^3/uL (150-450); Red Cell Distribution Width 13 % (10-15); White Blood Count 10.5 10^3/uL (3.5-10.8)
[2022-03-24 07:07] LABS: Calcium 6.8 mg/dL (8.6-10.3); Magnesium 1.7 mg/dL (1.9-2.7); Potassium 3.1 mmol/L (3.5-5.0); eGFR CKD-EPI 111.7 (>60)
[2022-03-24] MEDS: Enoxaparin 40 MG/0.4 ML SYR SUBCUT SCH (07:59)
[2022-03-24] MEDS: Cholestyramine Resin 4 GM POWDER PO SCH ×3 (08:00→22:42)
[2022-03-24] MEDS: Ondansetron 4 mg VIAL 2 MG/ML 2 ml VIAL IV PRN ×2 (08:02→20:47)
[2022-03-24] MEDS ORDERED: Lactated Ringers 1000 ml BAG 1,000 ML IV ONE (08:08)
[2022-03-24] MEDS ORDERED: Magnesium Sulfate IV 3 GM in NS 0.9% 100 ml BAG 100 ML IVPB ONE (08:08)
[2022-03-24] MEDS ORDERED: Potassium Chlor 20 meq TAB.ER PO ONE ×2 (08:08→11:00)
[2022-03-24] MEDS ORDERED: CARISOPRODOL 250 MG PO SCH (09:00)
[2022-03-24] MEDS: Lactated Ringers 1000 ml BAG 1,000 ML IV SCH ×3 (09:47→20:53)
[2022-03-24] MEDS ORDERED: Hydrocortisone INJ 100 MG/2ML 2 ML VIAL IV SCH (09:56)
[2022-03-24 09:59] LABS: Calcium 8.7 mg/dL (8.6-10.3); Potassium 3.6 mmol/L (3.5-5.0)
[2022-03-24] MEDS: Butalb/Acetamin/Caff TAB 325-50-40MG PO PRN (12:13)
[2022-03-24 15:01] LABS: Calcium 8.7 mg/dL (8.6-10.3); Potassium 3.6 mmol/L (3.5-5.0); eGFR CKD-EPI 103.3 (>60)
[2022-03-24] MEDS: Acetaminophen IV 1 GM/100ML 1,000 MG/100 ML BAG IV PRN (18:02)
[2022-03-24] MEDS: fentaNYL Patch Check Q Shift NOTE FOLLOW UP SCH (19:17)
[2022-03-25] MEDS: Hydrocortisone INJ 100 MG/2ML 2 ML VIAL IV SCH ×3 (01:45→17:05)
[2022-03-25] MEDS: Lactated Ringers 1000 ml BAG 1,000 ML IV SCH ×3 (04:49→22:50)
[2022-03-25] MEDS: ZOSYN 3.375 GM Q8H per EXTENDED INFUSION IV SCH ×3 (05:30→22:55)
[2022-03-25] MEDS: Butalb/Acetamin/Caff TAB 325-50-40MG PO PRN (05:58)
[2022-03-25 06:28] LABS: ABS Lymphocytes 2.7 10^3/ul (1.0-4.8); ABS Monocytes 0.3 10^3/ul (0-0.8); ABS Neutrophils 6.6 10^3/ul (1.5-7.7); Eosinophil % 0.1 %; Hematocrit 33 % (35-47); Hemoglobin 10.9 g/dL (12.0-16.0); Mean Corpuscular HGB Conc 33 g/dL (31-36); Mean Corpuscular Hemoglobin 32 pg (27-31); Mean Corpuscular Volume 95 fL (80-97); Mean Platelet Volume 7.9 fL (7.4-10.4); Nucleated Red Blood Cells % 0.1; Platelet Count 219 10^3/uL (150-450); Red Blood Count 3.45 10^6 /uL (3.70-4.87); Red Cell Distribution Width 13 % (10-15); White Blood Count 9.7 10^3/uL (3.5-10.8)
[2022-03-25] MEDS: fentaNYL Patch Check Q Shift NOTE FOLLOW UP SCH ×2 (07:15→19:00)
[2022-03-25 07:18] LABS: Calcium 8.8 mg/dL (8.6-10.3); Potassium 3.9 mmol/L (3.5-5.0); eGFR CKD-EPI 106.1 (>60)
[2022-03-25] MEDS: Enoxaparin 40 MG/0.4 ML SYR SUBCUT SCH (07:46)
[2022-03-25] MEDS: Cholestyramine Resin 4 GM POWDER PO SCH ×3 (09:57→20:27)
[2022-03-25] MEDS: Ondansetron 4 mg VIAL 2 MG/ML 2 ml VIAL IV PRN (10:01)
[2022-03-25] MEDS: Dextran 70/Hypromellose Tears Eye Drops 15 ml BTL (for Artificials Tears) BOTH EYES PRN (20:43)
[2022-03-26] MEDS: Dextran 70/Hypromellose Tears Eye Drops 15 ml BTL (for Artificials Tears) BOTH EYES PRN (01:34)
[2022-03-26] MEDS: Hydrocortisone INJ 100 MG/2ML 2 ML VIAL IV SCH ×2 (03:08→09:50)
[2022-03-26] MEDS: Acetaminophen IV 1 GM/100ML 1,000 MG/100 ML BAG IV PRN (03:26)
[2022-03-26] MEDS: ZOSYN 3.375 GM Q8H per EXTENDED INFUSION IV SCH ×2 (05:22→15:21)
[2022-03-26] MEDS: fentaNYL PATCH 25 MCG/HR 1 PATCH TRANSDERM SCH (07:27)
[2022-03-26] MEDS: fentaNYL Patch Check Q Shift NOTE FOLLOW UP SCH ×2 (07:30→19:19)
[2022-03-26] MEDS: Lactated Ringers 1000 ml BAG 1,000 ML IV SCH (07:36)
[2022-03-26] MEDS: Butalb/Acetamin/Caff TAB 325-50-40MG PO PRN (07:37)
[2022-03-26] MEDS ORDERED: fentaNYL PATCH 12 MCG/HR 1 PATCH TRANSDERM SCH (09:00)
[2022-03-26] MEDS ORDERED: fentaNYL PATCH 25 MCG/HR 1 PATCH TRANSDERM SCH (09:00)
[2022-03-26] MEDS: Ondansetron 4 mg VIAL 2 MG/ML 2 ml VIAL IV PRN (09:50)
[2022-03-26] MEDS: Enoxaparin 40 MG/0.4 ML SYR SUBCUT SCH (09:50)
[2022-03-26] MEDS: Cholestyramine Resin 4 GM POWDER PO SCH ×3 (11:24→21:26)
[2022-03-26] MEDS ORDERED: cefTRIAXone 2 gm/50 mL D5W 2 GM/50 ML BAG IV SCH (19:30)
[2022-03-26] MEDS: metroNIDAZOLE IV 500 MG/100ML 500 MG/100 ML BAG IVPB SCH (20:34)
[2022-03-27] MEDS: Cholestyramine Resin 4 GM POWDER PO SCH ×2 (04:35→15:41)
[2022-03-27] MEDS: Butalb/Acetamin/Caff TAB 325-50-40MG PO PRN (06:02)
[2022-03-27 06:29] LABS: Hematocrit 32 % (35-47); Hemoglobin 10.8 g/dL (12.0-16.0); Mean Corpuscular HGB Conc 34 g/dL (31-36); Mean Corpuscular Hemoglobin 32 pg (27-31); Mean Corpuscular Volume 96 fL (80-97); Mean Platelet Volume 7.8 fL (7.4-10.4); Platelet Count 264 10^3/uL (150-450); Red Blood Count 3.36 10^6 /uL (3.70-4.87); Red Cell Distribution Width 13 % (10-15); White Blood Count 8.9 10^3/uL (3.5-10.8)
[2022-03-27] MEDS: fentaNYL Patch Check Q Shift NOTE FOLLOW UP SCH (06:58)
[2022-03-27 07:01] LABS: ABS Lymphocytes 4.8 10^3/ul (1.0-4.8); ABS Monocytes 0.8 10^3/ul (0-0.8); ABS Neutrophils 3.2 10^3/ul (1.5-7.7); Eosinophil % 0.5 %; Lymphocyte % 54.6 %; Nucleated Red Blood Cells % 0.4
[2022-03-27 07:04] LABS: Albumin/Globulin Ratio 1.4 (1-3); Calcium 8.6 mg/dL (8.6-10.3); Globulin 2.1 g/dL (2-4); Potassium 3.1 mmol/L (3.5-5.0); Total Bilirubin 0.3 mg/dL (0.2-1.0); Total Protein 5.1 g/dL (6.4-8.9); eGFR CKD-EPI 103.7 (>60)
[2022-03-27] MEDS: Enoxaparin 40 MG/0.4 ML SYR SUBCUT SCH (08:01)
[2022-03-27] MEDS: metroNIDAZOLE IV 500 MG/100ML 500 MG/100 ML BAG IVPB SCH (08:01)
[2022-03-27 11:10] VITALS: BP 120/86
[2022-03-27] MEDS: Ondansetron 4 mg VIAL 2 MG/ML 2 ml VIAL IV PRN (15:40)
[2022-03-27 16:45] LABS: C Reactive Protein 13.74 mg/L (<8.01)
== END 2022-03-27 16:10 | disposition home or self-care (01) | DRG 872 ==
LOC: ED 00:50 → EDHOLD 06:03 → ICU 09:02 → MED 03-24 15:59
PROVIDERS: ADMIT Student in an Organized Health Care Education/Training Program; ATTEND Student in an Organized Health Care Education/Training Program

== ENCOUNTER 2022-08-06 23:20 | Observation (INO) ==
[2022-08-06] MEDS ORDERED: NS 0.9% 1000 ml BAG 1,000 ML IV ONE (23:41)
[2022-08-06 23:54] LABS: Hematocrit 40 % (35-47); Hemoglobin 13.1 g/dL (12.0-16.0); Mean Corpuscular HGB Conc 33 g/dL (31-36); Mean Corpuscular Hemoglobin 32 pg (27-31); Mean Corpuscular Volume 97 fL (80-97); Mean Platelet Volume 6.8 fL (7.4-10.4); Platelet Count 279 10^3/uL (150-450); Red Blood Count 4.09 10^6 /uL (3.70-4.87); Red Cell Distribution Width 15 % (10-15); White Blood Count 16.5 10^3/uL (3.5-10.8)
[2022-08-07 00:17] LABS: ALT 27 U/L (7-52); AST 34 U/L (13-39); Albumin 4.5 g/dL (3.2-5.2); Albumin/Globulin Ratio 1.8 (1-3); Alcohol, S < 13 mg/dL (<13); Alkaline Phosphatase 97 U/L (35-149); Anion Gap 7 mmol/L (2-11); Blood Urea Nitrogen 14 mg/dL (6-24); CO2 Carbon Dioxide 29 mmol/L (22-32); Calcium 9.2 mg/dL (8.6-10.3); Chloride 99 mmol/L (101-111); Creatinine, Serum 0.95 mg/dL (0.51-0.95); Globulin 2.5 g/dL (2-4); Glucose 95 mg/dL (70-100); Magnesium 1.4 mg/dL (1.9-2.7); Potassium 3.3 mmol/L (3.5-5.0); Sodium 135 mmol/L (135-145); eGFR CKD-EPI 70.3 (>60)
[2022-08-07 00:18] LABS: High Sens Troponin Baseline 39 pg/mL (<15)
[2022-08-07 00:32] LABS: TSH Ultra Thyroid Stim Horm 1.74 mcIU/mL (0.34-5.60)
[2022-08-07] MEDS ORDERED: NS 0.9% 1000 ml BAG 1,000 ML IV ONE (00:52)
[2022-08-07 01:08] LABS: ABS Basophils 0.1 10^3/ul (0-0.2); ABS Eosinophils 0.3 10^3/ul (0-0.6); ABS Lymphocytes 6.7 10^3/ul (1.0-4.8); ABS Monocytes 0.6 10^3/ul (0-0.8); ABS Neutrophils 8.7 10^3/ul (1.5-7.7); Eosinophil % 1.8 %; Lymphocyte % 40.8 %; Nucleated Red Blood Cells % 0.3
[2022-08-07 01:15] LABS: High Sensitivity Troponin 1 Hr 33 pg/mL (<15)
[2022-08-07 01:44] LABS: Urine Appearance Clear; Urine Bilirubin Negative (Negative); Urine Blood 1+ (Negative); Urine Color Yellow; Urine Glucose Negative (Negative); Urine Ketones Negative (Negative); Urine Nitrite Negative (Negative); Urine Protein Negative (Negative); Urine Specific Gravity 1.004 (1.002-1.030); Urine Urobilinogen Negative (Negative)
[2022-08-07 01:45] LABS: Urine Bacteria 1+ (Absent); Urine Red Blood Cell Trace(0-2/hpf) (Absent); Urine Squamous Epithelial Cell Present (Absent); Urine White Blood Cell 3+(>20/hpf) (Absent)
[2022-08-07] MEDS ORDERED: Iodixanol (CONTRAST) 320 MG/ML 100 ML SDV IV ONE (02:51)
[2022-08-07] MEDS ORDERED: Vancomycin 1,000 MG in NS 0.9% 250 ml 250 ML IVPB SCH (03:00)
[2022-08-07] MEDS ORDERED: Vancomycin 1,000 MG - ED ONCE IVPB ONE (03:00)
[2022-08-07] MEDS: HYDROmorphone 0.5 MG/0.5 ML SYRINGE IV PRN ×2 (03:40→07:36)
[2022-08-07] MEDS ORDERED: Acetaminophen IV 1 GM/100ML 1,000 MG/100 ML BAG IV ONE ×2 (03:54→05:49)
[2022-08-07] MEDS ORDERED: Albuterol HFA INHALER 8 gm MDI INH PRN (03:55)
[2022-08-07] MEDS ORDERED: cefTRIAXone 1 gm/50 mL D5W 1 GM/50 ML BAG IV SCH ×2 (04:00→09:45)
[2022-08-07] MEDS ORDERED: cefTRIAXone 1 gm/50 mL D5W 1 GM/50 ML BAG IV ONE (05:51)
[2022-08-07] MEDS ORDERED: Magnesium Sulfate IV 3 GM in NS 0.9% 100 ml BAG 100 ML IVPB ONE (09:49)
[2022-08-07] MEDS ORDERED: HYDROmorphone 0.5 MG/0.5 ML SYRINGE IV SLOW PU PRN (09:52)
[2022-08-07] MEDS ORDERED: metroNIDAZOLE IV 500 MG/100ML 500 MG/100 ML BAG IVPB SCH (10:00)
[2022-08-07] MEDS ORDERED: Lactated Ringers 1000 ml BAG 1,000 ML IV SCH (10:00)
[2022-08-07 11:01] LABS: Hematocrit 36 % (35-47); Hemoglobin 11.9 g/dL (12.0-16.0); Mean Corpuscular HGB Conc 33 g/dL (31-36); Mean Corpuscular Hemoglobin 32 pg (27-31); Mean Corpuscular Volume 98 fL (80-97); Platelet Count 260 10^3/uL (150-450); Red Blood Count 3.66 10^6 /uL (3.70-4.87); Red Cell Distribution Width 14 % (10-15)
[2022-08-07] MEDS: Acetaminophen IV 1 GM/100ML 1,000 MG/100 ML BAG IV PRN ×2 (11:36→20:34)
[2022-08-07 11:53] LABS: C Reactive Protein 13.61 mg/L (<8.01); Calcium 8.7 mg/dL (8.6-10.3); Creatinine, Serum 0.75 mg/dL (0.51-0.95); Magnesium 1.3 mg/dL (1.9-2.7); Potassium 3.3 mmol/L (3.5-5.0); eGFR CKD-EPI 93.4 (>60)
[2022-08-07] MEDS: Cholestyramine Resin 4 GM POWDER PO SCH ×3 (12:34→21:05)
[2022-08-07] MEDS: HYDROmorphone 0.5 MG/0.5 ML SYRINGE IV SLOW PU PRN ×2 (13:01→17:56)
[2022-08-07] MEDS: KCL 20 MEQ/100 ML IVPREMIX 20 MEQ/100 ML BAG IV SCH ×2 (13:16→13:17)
[2022-08-07] MEDS: Enoxaparin 40 MG/0.4 ML SYR SUBCUT SCH (13:57)
[2022-08-07] MEDS ORDERED: Potassium Chlor 20 meq TAB.ER PO ONE (14:12)
[2022-08-07] MEDS ORDERED: Zosyn per Pharmacy NOTE FOLLOW UP SCH (15:00)
[2022-08-07] MEDS ORDERED: Piperacillin/Tazobac ADVAN 3.375 GM in NS 0.9% 100 ml BAG 100 ML IV ONE (15:00)
[2022-08-07] MEDS: ZOSYN 3.375 GM Q8H per EXTENDED INFUSION IV SCH (21:07)
[2022-08-08] MEDS: HYDROmorphone 0.5 MG/0.5 ML SYRINGE IV SLOW PU PRN ×2 (03:52→08:55)
[2022-08-08] MEDS: ZOSYN 3.375 GM Q8H per EXTENDED INFUSION IV SCH ×2 (04:43→15:17)
[2022-08-08 06:04] LABS: ABS Basophils 0.1 10^3/ul (0-0.2); ABS Eosinophils 0.2 10^3/ul (0-0.6); ABS Monocytes 0.4 10^3/ul (0-0.8); ABS Neutrophils 4.2 10^3/ul (1.5-7.7); Eosinophil % 1.7 %; Hematocrit 32 % (35-47); Hemoglobin 10.3 g/dL (12.0-16.0); Lymphocyte % 50.8 %; Mean Corpuscular HGB Conc 32 g/dL (31-36); Mean Corpuscular Hemoglobin 33 pg (27-31); Mean Corpuscular Volume 102 fL (80-97); Mean Platelet Volume 7.4 fL (7.4-10.4); Nucleated Red Blood Cells % 0.2; Platelet Count 201 10^3/uL (150-450); Red Blood Count 3.18 10^6 /uL (3.70-4.87); Red Cell Distribution Width 15 % (10-15); White Blood Count 9.8 10^3/uL (3.5-10.8)
[2022-08-08 06:45] LABS: C Reactive Protein 27.76 mg/L (<8.01); Creatinine, Serum 0.88 mg/dL (0.51-0.95); Magnesium 1.3 mg/dL (1.9-2.7); Potassium 3.2 mmol/L (3.5-5.0); eGFR CKD-EPI 77.1 (>60)
[2022-08-08] MEDS: Enoxaparin 40 MG/0.4 ML SYR SUBCUT SCH (08:48)
[2022-08-08] MEDS: Potassium Chlor 20 meq TAB.ER PO SCH (08:49)
[2022-08-08] MEDS: Cholestyramine Resin 4 GM POWDER PO SCH ×3 (08:55→20:29)
[2022-08-08] MEDS ORDERED: Lactated Ringers 1000 ml BAG 1,000 ML IV SCH (09:00)
[2022-08-08] MEDS: Acetaminophen IV 1 GM/100ML 1,000 MG/100 ML BAG IV PRN (10:54)
[2022-08-08] MEDS ORDERED: HYDROmorphone 0.5 MG/0.5 ML SYRINGE IV SLOW PU PRN (11:19)
[2022-08-08] MEDS: Amoxicillin/Clavul 875/125 TAB (Augmentin 875 tab) PO SCH ×2 (16:40→23:15)
[2022-08-08] MEDS: Buprenorphine 2 mg SL TAB SL SCH (21:43)
[2022-08-09] MEDS: Buprenorphine 2 mg SL TAB SL SCH ×2 (03:19→09:58)
[2022-08-09 06:20] LABS: ABS Eosinophils 0.1 10^3/ul (0-0.6); ABS Monocytes 0.5 10^3/ul (0-0.8); Eosinophil % 1.5 %; Hematocrit 29 % (35-47); Hemoglobin 9.8 g/dL (12.0-16.0); Lymphocyte % 51.2 %; Mean Corpuscular HGB Conc 34 g/dL (31-36); Mean Corpuscular Hemoglobin 33 pg (27-31); Mean Corpuscular Volume 98 fL (80-97); Mean Platelet Volume 7.7 fL (7.4-10.4); Platelet Count 229 10^3/uL (150-450); Red Blood Count 2.97 10^6 /uL (3.70-4.87); Red Cell Distribution Width 15 % (10-15); White Blood Count 9.7 10^3/uL (3.5-10.8)
[2022-08-09 06:26] LABS: Albumin 3.3 g/dL (3.2-5.2); Albumin/Globulin Ratio 1.7 (1-3); Calcium 8.1 mg/dL (8.6-10.3); Creatinine, Serum 0.71 mg/dL (0.51-0.95); Magnesium 1.3 mg/dL (1.9-2.7); Potassium 3.1 mmol/L (3.5-5.0); Total Bilirubin 0.4 mg/dL (0.2-1.0); Total Protein 5.3 g/dL (6.4-8.9); eGFR CKD-EPI 99.7 (>60)
[2022-08-09 06:50] LABS: Folate 19.79 ng/mL (5.90-24.80)
[2022-08-09] MEDS: Amoxicillin/Clavul 875/125 TAB (Augmentin 875 tab) PO SCH (09:55)
[2022-08-09] MEDS: Cholestyramine Resin 4 GM POWDER PO SCH (09:57)
[2022-08-09] MEDS: Enoxaparin 40 MG/0.4 ML SYR SUBCUT SCH ×2 (09:57→10:06)
[2022-08-09] MEDS: Potassium Chlor 20 meq TAB.ER PO SCH (09:58)
[2022-08-09] MEDS ORDERED: Potassium Chloride LIQUID 20 MEQ/15 ML LIQUID PO ONE (10:01)
[2022-08-09] MEDS ORDERED: Butalb/Acetamin/Caff TAB 325-50-40MG PO ONE (11:36)
[2022-08-09 12:45] VITALS: BP 96/57
== END 2022-08-09 14:30 | disposition home or self-care (01) ==
LOC: EDHOLD 23:20 → ED 23:20 → SUATTDRO 08-07 03:30 → EDHOLD 08-07 10:12 → MED 08-07 10:30
PROVIDERS: ADMIT Internal Medicine; ATTEND Hospitalist

== ENCOUNTER 2023-02-07 13:21 | Observation (INO) ==
[2023-02-07 14:22] LABS: ABS Eosinophils 0.3 10^3/uL (0.0-0.5); ABS Lymphocytes 3.6 10^3/uL (1.0-4.8); ABS Monocytes 0.6 10^3/uL (0.0-0.9); ABS Neutrophils 6.2 10^3/uL (1.5-7.6); ABS Nucleated RBC 0.01 10^3/ul; Eosinophil % 2.8 %; Hematocrit 29.5 % (35-45); Hemoglobin 10.1 g/dL (11.5-14.3); Lymphocyte % 33.6 %; Mean Corpuscular Hemoglobin 31.8 pg (27-33); Mean Corpuscular Hgb Conc 34.2 g/dL (31-36); Mean Platelet Volume 6.5 fL (7.5-11.2); Nucleated Red Blood Cells % 0.1 /100 WBC (0.0-0.4); Platelet Count 702 10^3/uL (150-450); Red Blood Count 3.17 10^6/uL (3.63-4.92); Red Cell Distribution Width 13.8 % (12-17); White Blood Count 10.8 10^3/uL (3.8-11.8)
[2023-02-07 14:40] LABS: Albumin 3.5 g/dL (3.2-5.2); C Reactive Protein 28.89 mg/L (<8.01); Calcium 9.5 mg/dL (8.6-10.3); Creatinine, Serum 0.71 mg/dL (0.51-0.95); Globulin 3.6 g/dL (2-4); Total Bilirubin 0.3 mg/dL (0.2-1.0); Total Protein 7.1 g/dL (6.4-8.9); eGFR CKD-EPI 99.1 (>60)
[2023-02-07] MEDS ORDERED: Ondansetron 4 mg VIAL 2 MG/ML 2 ml VIAL IV ONE (15:15)
[2023-02-07] MEDS ORDERED: Morphine 4 MG/ML VIAL (1 ml) IV ONE ×2 (15:15→18:31)
[2023-02-07] MEDS ORDERED: NS 0.9% 1000 ml BAG 1,000 ML IV ONE (15:16)
[2023-02-07] MEDS ORDERED: Iohexol 300 (CONTRAST) 10 ML SDV IV ONE (15:27)
[2023-02-07] MEDS ORDERED: Lorazepam PYXIS KEY PRN ×2 (18:30→22:24)
[2023-02-07] MEDS ORDERED: LORazepam 2 mg VIAL 1 ml IV PUSH ONE (18:30)
[2023-02-07] MEDS ORDERED: KCL 10 MEQ/50 ML IVPREMIX 10 MEQ/50 ML BAG IV ONE (20:17)
[2023-02-07] MEDS ORDERED: KCL 20 MEQ/100 ML IVPREMIX 20 MEQ/100 ML BAG IV SCH (22:00)
[2023-02-07 22:06] LABS: Magnesium 1.7 mg/dL (1.9-2.7)
[2023-02-07] MEDS ORDERED: Acetaminophen IV 1 GM/100ML 1,000 MG/100 ML BAG IV PRN (22:31)
[2023-02-07] MEDS ORDERED: LOPERAMIDE PO PRN (22:37)
[2023-02-07] MEDS ORDERED: Albuterol HFA INHALER 8 gm MDI INH PRN (22:37)
[2023-02-07] MEDS ORDERED: SIMETHICONE PO PRN (22:37)
[2023-02-07] MEDS: Lactated Ringers 1000 ml BAG 1,000 ML IV SCH (23:30)
[2023-02-07] MEDS: LORazepam 2 mg VIAL 1 ml IV PUSH PRN (23:30)
[2023-02-07] MEDS: Potassium Chlor 20 meq TAB.ER PO ONE (23:31)
[2023-02-08] MEDS: Potassium Chlor 20 meq TAB.ER PO ONE (00:15)
[2023-02-08] MEDS: LORazepam 2 mg VIAL 1 ml IV PUSH PRN ×4 (04:49→18:40)
[2023-02-08 08:35] LABS: Hematocrit 27.4 % (35-45); Hemoglobin 9.2 g/dL (11.5-14.3); Mean Corpuscular Hemoglobin 31.5 pg (27-33); Mean Corpuscular Hgb Conc 33.6 g/dL (31-36); Mean Corpuscular Volume 93.8 fL (80-97); Mean Platelet Volume 6.5 fL (7.5-11.2); Platelet Count 606 10^3/uL (150-450); Red Blood Count 2.92 10^6/uL (3.63-4.92); Red Cell Distribution Width 13.9 % (12-17); White Blood Count 11.4 10^3/uL (3.8-11.8)
[2023-02-08 08:56] LABS: C Reactive Protein 20.38 mg/L (<8.01); Calcium 8.4 mg/dL (8.6-10.3); Creatinine, Serum 0.63 mg/dL (0.51-0.95); Globulin 3.1 g/dL (2-4); Total Bilirubin 0.2 mg/dL (0.2-1.0); Total Protein 6.1 g/dL (6.4-8.9); eGFR CKD-EPI 103.4 (>60)
[2023-02-08] MEDS: Potassium Chlor 20 meq TAB.ER PO SCH ×2 (09:14→21:24)
[2023-02-08] MEDS: Cholestyramine Resin 4 GM POWDER PO SCH ×2 (09:16→21:30)
[2023-02-08] MEDS: Mupirocin 2% OINT TUBE TOPICAL SCH ×2 (09:22→14:12)
[2023-02-08 10:49] LABS: ABS Basophils 0.1 10^3/uL (0.0-0.1); ABS Eosinophils 0.7 10^3/uL (0.0-0.5); ABS Lymphocytes 5.3 10^3/uL (1.0-4.8); ABS Monocytes 0.7 10^3/uL (0.0-0.9); ABS Neutrophils 4.6 10^3/uL (1.5-7.6); ABS Nucleated RBC 0.02 10^3/ul; Eosinophil % 6.3 %; Lymphocyte % 46.7 %; Nucleated Red Blood Cells % 0.2 /100 WBC (0.0-0.4)
[2023-02-08] MEDS: Lactated Ringers 1000 ml BAG 1,000 ML IV SCH (14:11)
[2023-02-08 14:45] LABS: Magnesium 1.6 mg/dL (1.9-2.7)
[2023-02-08] MEDS ORDERED: Magnesium Sulfate 2 gm BAG 2 GM/50 ML BAG IVPB ONE (15:48)
[2023-02-08] MEDS: Ondansetron 4 mg VIAL 2 MG/ML 2 ml VIAL IV PRN (16:03)
[2023-02-08] MEDS: Enoxaparin 40 MG/0.4 ML SYR SUBCUT SCH (18:25)
[2023-02-09] MEDS: Ondansetron 4 mg VIAL 2 MG/ML 2 ml VIAL IV PRN ×2 (00:05→08:43)
[2023-02-09] MEDS: Mupirocin 2% OINT TUBE TOPICAL SCH ×5 (00:10→21:32)
[2023-02-09] MEDS: LORazepam 2 mg VIAL 1 ml IV PUSH PRN ×2 (01:42→08:42)
[2023-02-09] MEDS: Lactated Ringers 1000 ml BAG 1,000 ML IV SCH (01:44)
[2023-02-09 08:18] LABS: ABS Basophils 0.1 10^3/uL (0.0-0.1); ABS Eosinophils 0.6 10^3/uL (0.0-0.5); ABS Lymphocytes 3.9 10^3/uL (1.0-4.8); ABS Monocytes 0.6 10^3/uL (0.0-0.9); ABS Neutrophils 3.2 10^3/uL (1.5-7.6); ABS Nucleated RBC 0.01 10^3/ul; Hematocrit 24.7 % (35-45); Hemoglobin 8.5 g/dL (11.5-14.3); Lymphocyte % 46.6 %; Mean Corpuscular Hemoglobin 31.8 pg (27-33); Mean Corpuscular Hgb Conc 34.4 g/dL (31-36); Mean Corpuscular Volume 92.5 fL (80-97); Mean Platelet Volume 6.5 fL (7.5-11.2); Nucleated Red Blood Cells % 0.1 /100 WBC (0.0-0.4); Platelet Count 493 10^3/uL (150-450); Red Blood Count 2.67 10^6/uL (3.63-4.92); Red Cell Distribution Width 13.8 % (12-17); White Blood Count 8.5 10^3/uL (3.8-11.8)
[2023-02-09 08:30] LABS: Creatinine, Serum 0.57 mg/dL (0.51-0.95); Magnesium 1.7 mg/dL (1.9-2.7); eGFR CKD-EPI 105.9 (>60)
[2023-02-09] MEDS: Potassium Chlor 20 meq TAB.ER PO SCH ×2 (08:50→21:32)
[2023-02-09] MEDS: Cholestyramine Resin 4 GM POWDER PO SCH ×2 (08:54→20:42)
[2023-02-09] MEDS: Ondansetron ODT 4 mg TAB 4 MG TAB PO PRN ×2 (15:09→20:41)
[2023-02-09] MEDS: Enoxaparin 40 MG/0.4 ML SYR SUBCUT SCH (18:01)
[2023-02-10] MEDS: Cholestyramine Resin 4 GM POWDER PO SCH (09:14)
[2023-02-10] MEDS: Potassium Chlor 20 meq TAB.ER PO SCH (09:17)
[2023-02-10] MEDS: Ondansetron ODT 4 mg TAB 4 MG TAB PO PRN (10:10)
[2023-02-10] MEDS: Mupirocin 2% OINT TUBE TOPICAL SCH (12:05)
[2023-02-10 12:26] VITALS: BP 115/71
== END 2023-02-10 13:45 | disposition home or self-care (01) ==
LOC: EDHOLD 13:21 → ED 13:21 → SUATTDRO 21:37 → SSU 02-08 14:46 → MEDTELE 02-09 19:46
PROVIDERS: ADMIT Internal Medicine; ATTEND Pediatrics

== ENCOUNTER 2023-06-26 16:36 | Inpatient (IN) ==
[2023-06-26 18:17] LABS: Hematocrit 25.6 % (35-45); Hemoglobin 8.2 g/dL (11.5-14.3); Mean Corpuscular Hemoglobin 26.6 pg (27-33); Mean Corpuscular Hgb Conc 31.9 g/dL (31-36); Mean Corpuscular Volume 83.1 fL (80-97); Mean Platelet Volume 7.2 fL (7.5-11.2); Platelet Count 429 10^3/uL (150-450); Red Blood Count 3.08 10^6/uL (3.63-4.92); Red Cell Distribution Width 14.7 % (12-17); White Blood Count 18.6 10^3/uL (3.8-11.8)
[2023-06-26] MEDS ORDERED: Acetaminophen IV 1 GM/100ML 1,000 MG/100 ML BAG IV ONE ×2 (18:33→18:35)
[2023-06-26 18:37] LABS: Calcium 8.3 mg/dL (8.6-10.3); Creatinine, Serum 0.74 mg/dL (0.51-0.95); Potassium 3.1 mmol/L (3.5-5.0); eGFR CKD-EPI 94.3 (>60)
[2023-06-26 18:56] LABS: ABS Basophils 0.2 10^3/uL (0.0-0.1); ABS Eosinophils 0.4 10^3/uL (0.0-0.5); ABS Lymphocytes 13.2 10^3/uL (1.0-4.8); ABS Monocytes 0.5 10^3/uL (0.0-0.9); ABS Neutrophils 4.3 10^3/uL (1.5-7.6); ABS Nucleated RBC 0.03 10^3/ul; Eosinophil % 2.3 %; Nucleated Red Blood Cells % 0.1 %/100WBC (0.0-0.8)
[2023-06-26] MEDS ORDERED: Lactated Ringers 1000 ml BAG 1,000 ML IV ONE (19:20)
[2023-06-26 19:34] LABS: Urine Appearance Clear; Urine Bilirubin Negative (Negative); Urine Blood 1+ (Negative); Urine Color Straw; Urine Glucose Negative (Negative); Urine Ketones Negative (Negative); Urine Nitrite Negative (Negative); Urine Protein Negative (Negative); Urine Specific Gravity 1.011 (1.002-1.030); Urine Urobilinogen Negative (Negative)
[2023-06-26 19:41] LABS: Urine Bacteria Absent (Absent); Urine Red Blood Cell Trace(0-2/hpf) (Absent); Urine White Blood Cell 1+(6-10/hpf) (Absent)
[2023-06-26 19:45] LABS: C Reactive Protein 2.02 mg/L (<8.01); Magnesium 1.3 mg/dL (1.9-2.7)
[2023-06-26] MEDS ORDERED: Magnesium Sulfate 2 gm BAG 2 GM/50 ML BAG IVPB ONE (20:37)
[2023-06-26] MEDS ORDERED: Morphine 4 MG/ML VIAL (1 ml) IV ONE (20:46)
[2023-06-26 21:38] LABS: Alcohol, S < 13 mg/dL (<13)
[2023-06-26 22:19] LABS: Urine Benzodiazepine Screen Presumptive Positive (None Detect); Urine Cannabinoids Screen None Detected (None Detect); Urine Opiates Screen None Detected (None Detect)
[2023-06-26] MEDS ORDERED: Magnesium Sulf 4 GM/100 ML IV 4,000 MG/100 ML BAG IVPB ONE (23:46)
[2023-06-27] MEDS ORDERED: Morphine 2 MG/ML SYRINGE IV PRN (00:19)
[2023-06-27] MEDS: KCL 20 MEQ/100 ML IVPREMIX 20 MEQ/100 ML BAG IV SCH ×2 (00:59→06:34)
[2023-06-27] MEDS: Acetaminophen IV 1 GM/100ML 600 MG/60 ML BAG IV SCH ×4 (03:09→22:58)
[2023-06-27] MEDS ORDERED: Albuterol HFA INHALER 8 gm MDI INH PRN (03:25)
[2023-06-27] MEDS ORDERED: Naloxone Nasal Spray 4 MG/0.1 ML NASAL.SPR INTRANASAL PRN (03:25)
[2023-06-27 05:20] LABS: Hematocrit 27.8 % (35-45); Hemoglobin 9.1 g/dL (11.5-14.3); Mean Corpuscular Hemoglobin 26.8 pg (27-33); Mean Corpuscular Hgb Conc 32.8 g/dL (31-36); Mean Corpuscular Volume 81.8 fL (80-97); Platelet Count 396 10^3/uL (150-450); Red Cell Distribution Width 14.8 % (12-17); White Blood Count 17.5 10^3/uL (3.8-11.8)
[2023-06-27 06:09] LABS: ABS Basophils 0.1 10^3/uL (0.0-0.1); ABS Eosinophils 0.3 10^3/uL (0.0-0.5); ABS Lymphocytes 8.8 10^3/uL (1.0-4.8); ABS Neutrophils 7.3 10^3/uL (1.5-7.6); ABS Nucleated RBC 0.03 10^3/ul; Lymphocyte % 50.2 %; Nucleated Red Blood Cells % 0.1 %/100WBC (0.0-0.8)
[2023-06-27] MEDS ORDERED: Potassium Chlor 20 meq TAB.ER PO ONE (06:29)
[2023-06-27 06:45] LABS: Albumin 3.6 g/dL (3.2-5.2); Albumin/Globulin Ratio 1.6 (1-3); Calcium 7.8 mg/dL (8.6-10.3); Creatinine, Serum 0.66 mg/dL (0.51-0.95); Globulin 2.3 g/dL (2-4); Magnesium 2.5 mg/dL (1.9-2.7); Potassium 3.7 mmol/L (3.5-5.0); Total Bilirubin 0.3 mg/dL (0.2-1.0); Total Protein 5.9 g/dL (6.4-8.9); eGFR CKD-EPI 102.3 (>60)
[2023-06-27 10:51] LABS: % Iron Saturation 4 % (15-55); .Transferrin 396 mg/dL (203-362); Iron < 20 ug/dL (50-212); Total Iron Binding Capacity 554 mcg/dL (250-450); Unsaturated Iron Binding 534 ug/dL
[2023-06-27 11:12] LABS: Ferritin 11.3 ng/mL (11-307)
[2023-06-27 11:17] LABS: Folate 9.79 ng/mL (5.90-24.80)
[2023-06-27] MEDS: buPROPion SR 200 mg TAB.SR PO SCH ×2 (11:29→21:42)
[2023-06-27] MEDS: Cholestyramine Resin 4 GM POWDER PO SCH ×2 (11:29→21:42)
[2023-06-27] MEDS: Potassium Chlor 10 meq TAB PO SCH ×2 (11:31→21:21)
[2023-06-27] MEDS ORDERED: ceFAZolin 2 GM PREMIX 2 GM/50 ML BAG ONE (12:22)
[2023-06-27] MEDS ORDERED: Ferric Gluconate IV 250 MG in NS 0.9% 250 ml 200 ML IVPB SCH (12:30)
[2023-06-27] MEDS ORDERED: Bupivacaine 0.25% SDV 30 ML INJ ONE (12:46)
[2023-06-27] MEDS ORDERED: Rocuronium 50 mg VIAL 10 mg/ml 5 ml VIAL (50 mg) ONE (13:51)
[2023-06-27] MEDS ORDERED: Propofol 10 MG/ML 20 ML BTL ONE ×2 (13:51→16:06)
[2023-06-27] MEDS ORDERED: Midazolam 2 mg/2 ml VIAL 1 mg/ml 2 ml VIAL (2 mg) ONE (13:51)
[2023-06-27] MEDS ORDERED: Phenylephrine 40 mcg/mL 10mL (400mcg) SYRINGE ONE (13:51)
[2023-06-27] MEDS ORDERED: Lidocaine 2% PF 5 ML VIAL ONE (13:51)
[2023-06-27] MEDS ORDERED: fentaNYL 250 mcg/5 ml 50 MCG/ML 5 ml VIAL (250 MCG) ONE (13:51)
[2023-06-27] MEDS ORDERED: KETAMINE HCL 10 MG/ML 20 ml VIAL (200 MG) ONE (14:14)
[2023-06-27 14:32] LABS: % Iron Saturation 5 % (15-55); .Transferrin 388 mg/dL (203-362); Iron 28 ug/dL (50-212); Total Iron Binding Capacity 543 mcg/dL (250-450); Unsaturated Iron Binding 515 ug/dL
[2023-06-27] MEDS ORDERED: Phenylephrine IV 10 MG/ML 1 ml VIAL ONE (14:46)
[2023-06-27 14:51] LABS: Ferritin 8.2 ng/mL (11-307)
[2023-06-27 14:55] LABS: Folate > 20.00 ng/mL (5.90-24.80)
[2023-06-27 14:56] LABS: Vitamin B12 779 pg/mL (180-914)
[2023-06-27] MEDS ORDERED: Dexamethasone IV 4 MG/ML VIAL 1 ml VIAL ONE (15:51)
[2023-06-27] MEDS ORDERED: Ondansetron 4 mg VIAL 2 MG/ML 2 ml VIAL ONE (15:51)
[2023-06-27] MEDS ORDERED: Ondansetron 4 mg VIAL 2 MG/ML 2 ml VIAL IV PRN ×2 (18:00→22:48)
[2023-06-27] MEDS ORDERED: Naloxone 0.4 mg VIAL 0.4 mg/ml 1 ml VIAL IV PRN (18:00)
[2023-06-27] MEDS ORDERED: fentaNYL 100 mcg/2 ml 50 MCG/ML VIAL ONE (18:04)
[2023-06-27] MEDS: fentaNYL 100 mcg/2 ml 50 MCG/ML VIAL IV PRN ×3 (18:05→18:59)
[2023-06-27] MEDS ORDERED: Senna TAB 8.6 mg TAB PO PRN (22:48)
[2023-06-27] MEDS ORDERED: Magnesium Hydroxide LIQ 30 ML UDC PO PRN (22:48)
[2023-06-27] MEDS ORDERED: Polyethylene Glycol 3350 17 GM PACKET PO PRN (22:48)
[2023-06-27] MEDS ORDERED: Lactated Ringers 1000 ml BAG 1,000 ML IV SCH (22:48)
[2023-06-27] MEDS ORDERED: NS 0.9% 1000 ml BAG 500 ML IV ONE (22:48)
[2023-06-27] MEDS: Norepinephrine 4 MG/250mL D5W 4,000 MCG/250 ML BAG IV SCH (23:01)
[2023-06-27 23:15] LABS: Hematocrit 23.4 % (35-45); Hemoglobin 7.2 g/dL (11.5-14.3)
[2023-06-28] MEDS: Magnesium Hydroxide LIQ 30 ML UDC PO SCH ×2 (01:38→08:39)
[2023-06-28 01:41] LABS: Hematocrit 23.6 % (35-45); Hemoglobin 7.5 g/dL (11.5-14.3); Mean Corpuscular Hgb Conc 31.7 g/dL (31-36); Mean Corpuscular Volume 81.9 fL (80-97); Mean Platelet Volume 7.2 fL (7.5-11.2); Platelet Count 421 10^3/uL (150-450); Red Blood Count 2.88 10^6/uL (3.63-4.92); Red Cell Distribution Width 14.9 % (12-17); White Blood Count 30.5 10^3/uL (3.8-11.8)
[2023-06-28 01:58] LABS: Albumin 3.1 g/dL (3.2-5.2); Albumin/Globulin Ratio 1.3 (1-3); Calcium 7.5 mg/dL (8.6-10.3); Creatinine, Serum 0.67 mg/dL (0.51-0.95); Globulin 2.3 g/dL (2-4); Potassium 4.1 mmol/L (3.5-5.0); Total Bilirubin 0.4 mg/dL (0.2-1.0); Total Protein 5.4 g/dL (6.4-8.9); eGFR CKD-EPI 101.9 (>60)
[2023-06-28 02:11] LABS: ABS Basophils 0.1 10^3/uL (0.0-0.1); ABS Lymphocytes 14.2 10^3/uL (1.0-4.8); ABS Monocytes 1.2 10^3/uL (0.0-0.9); ABS Neutrophils 15.1 10^3/uL (1.5-7.6); ABS Nucleated RBC 0.03 10^3/ul; Lymphocyte % 46.5 %; Nucleated Red Blood Cells % 0.1 %/100WBC (0.0-0.8)
[2023-06-28] MEDS: Norepinephrine 4 MG/250mL D5W 4,000 MCG/250 ML BAG IV SCH ×3 (04:43→17:17)
[2023-06-28] MEDS: ceFAZolin 1 GM ADVAN 1 GM in NS 0.9% 50 ML 50 ML IVPB SCH ×3 (04:45→09:18)
[2023-06-28] MEDS ORDERED: Vancomycin 1,000 MG in NS 0.9% 250 ml 250 ML IVPB ONE (04:59)
[2023-06-28] MEDS ORDERED: Piperacillin/Tazobac 3.375 BAG 3.375 GM/100 ML BAG IV ONE (04:59)
[2023-06-28] MEDS ORDERED: Vancomycin per Pharmacy 1 EA NOTE FOLLOW UP SCH (05:00)
[2023-06-28] MEDS ORDERED: Zosyn per Pharmacy NOTE FOLLOW UP PRN (05:04)
[2023-06-28] MEDS ORDERED: Vancomycin 750 MG in NS 0.9% 250 ML IVPB ONE (06:00)
[2023-06-28 06:24] LABS: Hematocrit 27.1 % (35-45); Mean Corpuscular Hemoglobin 27.2 pg (27-33); Mean Corpuscular Hgb Conc 33.2 g/dL (31-36); Mean Corpuscular Volume 81.9 fL (80-97); Mean Platelet Volume 7.1 fL (7.5-11.2); Platelet Count 382 10^3/uL (150-450); Red Blood Count 3.31 10^6/uL (3.63-4.92); Red Cell Distribution Width 15.2 % (12-17); White Blood Count 25.1 10^3/uL (3.8-11.8)
[2023-06-28 06:31] LABS: INR 1.16 (0.83-1.13)
[2023-06-28 06:41] LABS: Albumin 3.3 g/dL (3.2-5.2); Albumin/Globulin Ratio 1.4 (1-3); Calcium 7.6 mg/dL (8.6-10.3); Creatinine, Serum 0.73 mg/dL (0.51-0.95); Globulin 2.4 g/dL (2-4); Phosphorus 1.8 mg/dL (2.5-5.0); Potassium 4.2 mmol/L (3.5-5.0); Total Bilirubin 0.3 mg/dL (0.2-1.0); Total Protein 5.7 g/dL (6.4-8.9); eGFR CKD-EPI 95.9 (>60)
[2023-06-28] MEDS ORDERED: Iohexol 300 (CONTRAST) 10 ML SDV IV ONE ×2 (06:43→08:53)
[2023-06-28 07:21] LABS: RBC Morphology Normal (Normal)
[2023-06-28 07:32] LABS: ABS Basophils 0.1 10^3/uL (0.0-0.1); ABS Lymphocytes 12.2 10^3/uL (1.0-4.8); ABS Monocytes 1.2 10^3/uL (0.0-0.9); ABS Neutrophils 11.5 10^3/uL (1.5-7.6); ABS Nucleated RBC 0.02 10^3/ul; Eosinophil % 0.1 %; Lymphocyte % 48.9 %; Nucleated Red Blood Cells % 0.1 %/100WBC (0.0-0.8)
[2023-06-28] MEDS: Cholestyramine Resin 4 GM POWDER PO SCH ×2 (08:38→20:02)
[2023-06-28] MEDS: Potassium Chlor 10 meq TAB PO SCH (08:39)
[2023-06-28] MEDS: buPROPion SR 200 mg TAB.SR PO SCH ×2 (08:39→20:03)
[2023-06-28] MEDS: Vitamin THERAPEUTIC TAB PO SCH (08:42)
[2023-06-28 09:37] LABS: Hematocrit 26.6 % (35-45); Hemoglobin 8.7 g/dL (11.5-14.3); Mean Corpuscular Hemoglobin 26.9 pg (27-33); Mean Corpuscular Hgb Conc 32.6 g/dL (31-36); Mean Corpuscular Volume 82.7 fL (80-97); Mean Platelet Volume 7.1 fL (7.5-11.2); Platelet Count 391 10^3/uL (150-450); Red Blood Count 3.21 10^6/uL (3.63-4.92); Red Cell Distribution Width 15.2 % (12-17); White Blood Count 25.3 10^3/uL (3.8-11.8)
[2023-06-28 09:39] LABS: Urine Appearance Turbid; Urine Bilirubin Negative (Negative); Urine Blood 2+ (Negative); Urine Color Yellow; Urine Glucose Negative (Negative); Urine Ketones Negative (Negative); Urine Nitrite Negative (Negative); Urine Protein 1+(30 mg/dL) (Negative); Urine Specific Gravity 1.012 (1.002-1.030); Urine Urobilinogen Negative (Negative)
[2023-06-28 09:49] LABS: Urine Bacteria Absent (Absent); Urine Red Blood Cell 3+(>10/hpf) (Absent); Urine White Blood Cell 3+(>20/hpf) (Absent)
[2023-06-28] MEDS ORDERED: Magnesium Sulfate 2 gm BAG 2 GM/50 ML BAG IVPB ONE (09:53)
[2023-06-28 09:57] LABS: ABS Basophils 0.1 10^3/uL (0.0-0.1); ABS Eosinophils 0.1 10^3/uL (0.0-0.5); ABS Lymphocytes 10.9 10^3/uL (1.0-4.8); ABS Monocytes 1.5 10^3/uL (0.0-0.9); ABS Neutrophils 12.1 10^3/uL (1.5-7.6); ABS Nucleated RBC 0.01 10^3/ul; Eosinophil % 0.4 %; Lymphocyte % 44.2 %
[2023-06-28] MEDS ORDERED: Lactated Ringers 1000 ml BAG 1,000 ML IV ONE (10:27)
[2023-06-28] MEDS: Acetaminophen IV 1 GM/100ML 500 MG/50 ML BAG IV PRN (11:18)
[2023-06-28] MEDS ORDERED: Hydrocortisone INJ 100 MG/2ML 2 ML VIAL IV ONE (11:54)
[2023-06-28] MEDS ORDERED: Enoxaparin 30 MG/0.3 ML SYR SUBCUT SCH (12:00)
[2023-06-28] MEDS: ZOSYN 3.375 GM Q8H per EXTENDED INFUSION IV SCH ×2 (12:12→17:18)
[2023-06-28] MEDS: Pantoprazole VIAL 40 MG VIAL IV SCH (15:51)
[2023-06-28 16:07] LABS: Hematocrit 24.6 % (35-45); Hemoglobin 7.9 g/dL (11.5-14.3); Mean Corpuscular Hemoglobin 26.7 pg (27-33); Mean Corpuscular Hgb Conc 32.1 g/dL (31-36); Mean Corpuscular Volume 83.1 fL (80-97); Platelet Count 362 10^3/uL (150-450); Red Blood Count 2.96 10^6/uL (3.63-4.92); Red Cell Distribution Width 15.5 % (12-17); White Blood Count 26.5 10^3/uL (3.8-11.8)
[2023-06-28 16:14] LABS: ABS Basophils 0.1 10^3/uL (0.0-0.1); ABS Lymphocytes 11.4 10^3/uL (1.0-4.8); ABS Monocytes 0.8 10^3/uL (0.0-0.9); ABS Neutrophils 14.2 10^3/uL (1.5-7.6); ABS Nucleated RBC 0.05 10^3/ul; Eosinophil % 0.1 %; Lymphocyte % 43.1 %; Nucleated Red Blood Cells % 0.2 %/100WBC (0.0-0.8)
[2023-06-28] MEDS ORDERED: NS 0.9% 1000 ml BAG 1,000 ML IV ONE (16:16)
[2023-06-28] MEDS: Hydrocortisone INJ 100 MG/2ML 2 ML VIAL IV SCH (17:18)
[2023-06-28] MEDS: Vancomycin 500 MG in NS 0.9% 250 ML IVPB SCH (20:00)
[2023-06-29] MEDS: Hydrocortisone INJ 100 MG/2ML 2 ML VIAL IV SCH ×3 (01:21→18:19)
[2023-06-29] MEDS: ZOSYN 3.375 GM Q8H per EXTENDED INFUSION IV SCH ×3 (01:21→18:18)
[2023-06-29] MEDS: Acetaminophen IV 1 GM/100ML 500 MG/50 ML BAG IV PRN (05:12)
[2023-06-29 06:14] LABS: ABS Lymphocytes 4.3 10^3/uL (1.0-4.8); ABS Monocytes 0.5 10^3/uL (0.0-0.9); ABS Neutrophils 7.7 10^3/uL (1.5-7.6); ABS Nucleated RBC 0.01 10^3/ul; Hematocrit 20.7 % (35-45); Hemoglobin 6.8 g/dL (11.5-14.3); Lymphocyte % 34.1 %; Mean Corpuscular Hgb Conc 32.8 g/dL (31-36); Mean Corpuscular Volume 82.4 fL (80-97); Mean Platelet Volume 7.2 fL (7.5-11.2); Nucleated Red Blood Cells % 0.1 %/100WBC (0.0-0.8); Platelet Count 280 10^3/uL (150-450); Red Blood Count 2.52 10^6/uL (3.63-4.92); Red Cell Distribution Width 15.3 % (12-17); White Blood Count 17.9 10^3/uL (3.8-11.8)
[2023-06-29 06:58] LABS: Potassium 3.7 mmol/L (3.5-5.0)
[2023-06-29 06:59] LABS: Albumin 2.7 g/dL (3.2-5.2); Albumin/Globulin Ratio 1.3 (1-3); Calcium 7.2 mg/dL (8.6-10.3); Creatinine, Serum 0.58 mg/dL (0.51-0.95); Globulin 2.1 g/dL (2-4); Phosphorus 1.7 mg/dL (2.5-5.0); Total Bilirubin 0.3 mg/dL (0.2-1.0); Total Protein 4.8 g/dL (6.4-8.9); eGFR CKD-EPI 105.5 (>60)
[2023-06-29] MEDS ORDERED: Sodium Phosphate IV 15 MMOL in NS 0.9% 250 ml 250 ML IV ONE (07:05)
[2023-06-29] MEDS: Pantoprazole VIAL 40 MG VIAL IV SCH (07:48)
[2023-06-29] MEDS: Vancomycin 500 MG in NS 0.9% 250 ML IVPB SCH ×3 (07:48→22:38)
[2023-06-29] MEDS: Cholestyramine Resin 4 GM POWDER PO SCH ×2 (07:48→21:55)
[2023-06-29] MEDS: buPROPion SR 200 mg TAB.SR PO SCH ×2 (07:49→21:54)
[2023-06-29] MEDS: Vitamin THERAPEUTIC TAB PO SCH (07:51)
[2023-06-29] MEDS ORDERED: NS 0.9% 250 ml 250 ML IV ONE (21:47)
[2023-06-29] MEDS: Saline NASAL SPRAY 0.65% BTL BOTH NARES PRN (22:13)
[2023-06-30] MEDS: Hydrocortisone INJ 100 MG/2ML 2 ML VIAL IV SCH ×3 (01:31→18:02)
[2023-06-30] MEDS: ZOSYN 3.375 GM Q8H per EXTENDED INFUSION IV SCH ×2 (01:39→12:19)
[2023-06-30] MEDS: buPROPion SR 200 mg TAB.SR PO SCH ×2 (08:42→19:57)
[2023-06-30] MEDS: Cholestyramine Resin 4 GM POWDER PO SCH ×2 (08:45→20:33)
[2023-06-30] MEDS: Pantoprazole VIAL 40 MG VIAL IV SCH (08:48)
[2023-06-30] MEDS ORDERED: Multivitamins ADULT w/MIN LIQ 15 ML UDC PO SCH (09:00)
[2023-06-30] MEDS ORDERED: Potassium Chlor 20 meq TAB.ER PO ONE (10:04)
[2023-06-30 10:22] LABS: Hematocrit 22.5 % (35-45); Hemoglobin 7.4 g/dL (11.5-14.3); Mean Corpuscular Hemoglobin 27.5 pg (27-33); Mean Corpuscular Hgb Conc 32.7 g/dL (31-36); Mean Corpuscular Volume 84.1 fL (80-97); Mean Platelet Volume 7.5 fL (7.5-11.2); Platelet Count 276 10^3/uL (150-450); Red Blood Count 2.67 10^6/uL (3.63-4.92); Red Cell Distribution Width 15.3 % (12-17); White Blood Count 15.2 10^3/uL (3.8-11.8)
[2023-06-30] MEDS ORDERED: Vancomycin Trough Check NOTE FOLLOW UP ONE (10:30)
[2023-06-30 10:37] LABS: Calcium 7.9 mg/dL (8.6-10.3); Creatinine, Serum 0.59 mg/dL (0.51-0.95); Magnesium 1.9 mg/dL (1.9-2.7); Phosphorus 1.5 mg/dL (2.5-5.0); Potassium 3.2 mmol/L (3.5-5.0); eGFR CKD-EPI 105.1 (>60)
[2023-06-30 10:38] LABS: Creatinine, Serum 0.59 mg/dL (0.51-0.95); eGFR CKD-EPI 105.1 (>60)
[2023-06-30] MEDS ORDERED: Diphenoxylat/Atrop 2.5-0.025mg TAB PO PRN (10:46)
[2023-06-30 10:52] LABS: Albumin 2.7 g/dL (3.2-5.2); Albumin/Globulin Ratio 1.2 (1-3); Globulin 2.2 g/dL (2-4); Total Bilirubin 0.3 mg/dL (0.2-1.0); Total Protein 4.9 g/dL (6.4-8.9)
[2023-06-30] MEDS ORDERED: Potassium EFFERVES 25 meq TAB PO ONE (11:18)
[2023-06-30] MEDS ORDERED: Potassium Chloride LIQUID 20 MEQ/15 ML LIQUID PO ONE (12:00)
[2023-06-30] MEDS: Multivitamins ADULT w/MIN LIQ 15 ML UDC PO SCH (12:05)
[2023-06-30] MEDS: PANCRELIPASE 24000 UNIT PO SCH ×2 (12:05→18:07)
[2023-06-30] MEDS: Vancomycin 500 MG in NS 0.9% 250 ML IVPB SCH (12:18)
[2023-06-30] MEDS ORDERED: Vancomycin 750 MG in NS 0.9% 250 ML IVPB SCH (12:30)
[2023-06-30] MEDS ORDERED: Potassium Phosphate IV 15 MMOL in NS 0.9% 250 ml 250 ML IVPB ONE (12:41)
[2023-06-30] MEDS ORDERED: Thiamine IV 100 MG/ML VIAL (only for Bannana Bags !) IVPB ONE (12:42)
[2023-06-30] MEDS ORDERED: Potassium Chlor 20 meq TAB.ER PO SCH (13:00)
[2023-06-30] MEDS ORDERED: cefTRIAXone 1 gm/50 mL D5W 1 GM/50 ML BAG IV SCH (14:00)
[2023-06-30] MEDS ORDERED: Thiamine IV 100 MG in NS 0.9% 50 ML Q24H IV ONE (14:00)
[2023-06-30] MEDS: Morphine 10 MG/ML VIAL (1 ml) IV PRN (19:31)
[2023-06-30] MEDS: Diphenoxylat/Atrop 2.5-0.025mg TAB PO PRN (20:03)
[2023-07-01] MEDS: Hydrocortisone INJ 100 MG/2ML 2 ML VIAL IV SCH ×3 (01:26→18:06)
[2023-07-01] MEDS: Morphine 10 MG/ML VIAL (1 ml) IV PRN ×2 (05:32→08:59)
[2023-07-01] MEDS: Diphenoxylat/Atrop 2.5-0.025mg TAB PO PRN ×3 (05:32→19:06)
[2023-07-01 05:35] LABS: Hematocrit 25.3 % (35-45); Hemoglobin 8.3 g/dL (11.5-14.3); Mean Corpuscular Hemoglobin 27.6 pg (27-33); Mean Corpuscular Volume 83.4 fL (80-97); Mean Platelet Volume 7.5 fL (7.5-11.2); Platelet Count 273 10^3/uL (150-450); Red Blood Count 3.03 10^6/uL (3.63-4.92); Red Cell Distribution Width 15.6 % (12-17); White Blood Count 12.7 10^3/uL (3.8-11.8)
[2023-07-01 05:52] LABS: Creatinine, Serum 0.48 mg/dL (0.51-0.95); Magnesium 1.8 mg/dL (1.9-2.7); Phosphorus 1.9 mg/dL (2.5-5.0); Potassium 3.8 mmol/L (3.5-5.0); eGFR CKD-EPI 110.4 (>60)
[2023-07-01] MEDS ORDERED: KCL 20 MEQ/100 ML IVPREMIX 20 MEQ/100 ML BAG IV ONE (06:41)
[2023-07-01] MEDS ORDERED: Magnesium Sulfate IV 1GM/100ML 1 GM/100 ML BAG IV ONE (06:42)
[2023-07-01] MEDS ORDERED: Magnesium Sulfate 2 gm BAG 2 GM/50 ML BAG IVPB ONE (08:00)
[2023-07-01] MEDS ORDERED: Potassium Phosphate IV 15 MMOL in NS 0.9% 250 ml 250 ML IVPB ONE (08:30)
[2023-07-01] MEDS: PANCRELIPASE 24000 UNIT PO SCH ×2 (09:02→15:05)
[2023-07-01] MEDS: buPROPion SR 200 mg TAB.SR PO SCH ×2 (09:04→21:16)
[2023-07-01] MEDS: Pantoprazole VIAL 40 MG VIAL IV SCH (09:09)
[2023-07-01] MEDS ORDERED: ASA-APAP-CAFFEINE ES (NF) TAB PO PRN (09:18)
[2023-07-01] MEDS ORDERED: Butalb/Acetamin/Caff TAB 325-50-40MG PO PRN (10:15)
[2023-07-01] MEDS ORDERED: Dextran 70/Hypromellose Tears Eye Drops 15 ml BTL (for Artificials Tears) BOTH EYES PRN (10:16)
[2023-07-01] MEDS: Multivitamins ADULT w/MIN LIQ 15 ML UDC PO SCH (10:40)
[2023-07-01] MEDS: Cholestyramine Resin 4 GM POWDER PO SCH ×2 (10:41→21:18)
[2023-07-01] MEDS: cefTRIAXone 1 GM Q24H (ADVAN) IVPB SCH (14:40)
[2023-07-01] MEDS ORDERED: CAFFEINE 200 MG PO PRN (16:54)
[2023-07-01] MEDS: Pancrelipase 5,000 units CAP PO SCH (18:00)
[2023-07-02] MEDS: Hydrocortisone INJ 100 MG/2ML 2 ML VIAL IV SCH ×2 (02:12→10:03)
[2023-07-02] MEDS: Lidocaine PATCH 5% PATCH TRANSDERM SCH (04:43)
[2023-07-02 05:50] LABS: ABS Lymphocytes 4.3 10^3/uL (1.0-4.8); ABS Monocytes 0.5 10^3/uL (0.0-0.9); ABS Neutrophils 5.6 10^3/uL (1.5-7.6); ABS Nucleated RBC 0.01 10^3/ul; Eosinophil % 0.2 %; Hematocrit 26.3 % (35-45); Hemoglobin 8.7 g/dL (11.5-14.3); Lymphocyte % 41.6 %; Mean Corpuscular Hemoglobin 27.5 pg (27-33); Mean Corpuscular Hgb Conc 33.1 g/dL (31-36); Mean Corpuscular Volume 83.1 fL (80-97); Mean Platelet Volume 7.5 fL (7.5-11.2); Nucleated Red Blood Cells % 0.1 %/100WBC (0.0-0.8); Platelet Count 317 10^3/uL (150-450); Red Blood Count 3.16 10^6/uL (3.63-4.92); Red Cell Distribution Width 15.8 % (12-17); White Blood Count 10.4 10^3/uL (3.8-11.8)
[2023-07-02 06:59] LABS: Calcium 7.8 mg/dL (8.6-10.3); Creatinine, Serum 0.52 mg/dL (0.51-0.95); Magnesium 1.8 mg/dL (1.9-2.7); Potassium 3.4 mmol/L (3.5-5.0); eGFR CKD-EPI 108.3 (>60)
[2023-07-02 08:21] LABS: Phosphorus 2.4 mg/dL (2.5-5.0)
[2023-07-02] MEDS: Diphenoxylat/Atrop 2.5-0.025mg TAB PO PRN ×2 (09:04→14:44)
[2023-07-02] MEDS: Cholestyramine Resin 4 GM POWDER PO SCH ×2 (09:06→22:21)
[2023-07-02] MEDS: Pancrelipase 5,000 units CAP PO SCH ×3 (09:09→17:33)
[2023-07-02] MEDS: Multivitamins ADULT w/MIN LIQ 15 ML UDC PO SCH (09:09)
[2023-07-02] MEDS: buPROPion SR 200 mg TAB.SR PO SCH ×2 (09:11→22:19)
[2023-07-02] MEDS: Oxymetazoline 0.05% NASAL SPR 15 ML BTL BOTH NARES SCH ×2 (09:18→22:21)
[2023-07-02] MEDS: Pantoprazole VIAL 40 MG VIAL IV SCH (09:19)
[2023-07-02] MEDS: cefTRIAXone 1 GM Q24H (ADVAN) IVPB SCH (13:52)
[2023-07-02] MEDS: Saline NASAL SPRAY 0.65% BTL BOTH NARES PRN (14:56)
[2023-07-02 15:20] LABS: Rapid COVID-19 Molecular Undetected (Undetected)
[2023-07-02] MEDS ORDERED: Potassium EFFERVES 25 meq TAB PO ONE (15:40)
[2023-07-02] MEDS ORDERED: Potassium Phosphate IV 15 MMOL in NS 0.9% 250 ml 250 ML IVPB ONE (15:48)
[2023-07-02] MEDS: Magnesium Sulfate IV 1GM/100ML 1 GM/100 ML BAG IV ONE ×2 (16:10→16:23)
[2023-07-02] MEDS ORDERED: Oxymetazoline 0.05% NASAL SPR 15 ML BTL BOTH NARES ONE (16:27)
[2023-07-02] MEDS ORDERED: Magnesium Chloride EC 64 mgTAB PO ONE (18:53)
[2023-07-03] MEDS: Saline NASAL SPRAY 0.65% BTL BOTH NARES PRN (05:26)
[2023-07-03 06:48] LABS: Hematocrit 26.7 % (35-45); Hemoglobin 8.8 g/dL (11.5-14.3); Mean Corpuscular Hemoglobin 27.3 pg (27-33); Mean Corpuscular Hgb Conc 32.9 g/dL (31-36); Mean Platelet Volume 7.2 fL (7.5-11.2); Platelet Count 389 10^3/uL (150-450); Red Blood Count 3.21 10^6/uL (3.63-4.92); Red Cell Distribution Width 15.6 % (12-17); White Blood Count 16.6 10^3/uL (3.8-11.8)
[2023-07-03 07:06] LABS: Creatinine, Serum 0.51 mg/dL (0.51-0.95); Magnesium 1.6 mg/dL (1.9-2.7); Phosphorus 2.8 mg/dL (2.5-5.0); Potassium 3.1 mmol/L (3.5-5.0); eGFR CKD-EPI 108.8 (>60)
[2023-07-03 07:53] LABS: ABS Basophils 0.1 10^3/uL (0.0-0.1); ABS Eosinophils 0.2 10^3/uL (0.0-0.5); ABS Lymphocytes 9.1 10^3/uL (1.0-4.8); ABS Monocytes 0.8 10^3/uL (0.0-0.9); ABS Neutrophils 6.5 10^3/uL (1.5-7.6); ABS Nucleated RBC 0.01 10^3/ul; Eosinophil % 1.4 %; Lymphocyte % 54.6 %
[2023-07-03] MEDS ORDERED: Magnesium Sulf 4 GM/100 ML IV 4,000 MG/100 ML BAG IVPB ONE (08:30)
[2023-07-03] MEDS: Pancrelipase 5,000 units CAP PO SCH ×2 (08:56→13:45)
[2023-07-03] MEDS: buPROPion SR 200 mg TAB.SR PO SCH (08:59)
[2023-07-03] MEDS ORDERED: Influenza vaccine *QUAD* *2023-24* 0.5 ML SYRINGE IM ONE (09:00)
[2023-07-03] MEDS ORDERED: Potassium Chlor 20 meq TAB.ER PO SCH (09:00)
[2023-07-03] MEDS ORDERED: Potassium Chloride LIQUID 20 MEQ/15 ML LIQUID PO SCH (09:00)
[2023-07-03] MEDS: Multivitamins ADULT w/MIN LIQ 15 ML UDC PO SCH (09:01)
[2023-07-03] MEDS: Cholestyramine Resin 4 GM POWDER PO SCH (09:03)
[2023-07-03] MEDS: Pantoprazole VIAL 40 MG VIAL IV SCH (09:09)
[2023-07-03] MEDS: Oxymetazoline 0.05% NASAL SPR 15 ML BTL BOTH NARES SCH (09:10)
[2023-07-03] MEDS: Diphenoxylat/Atrop 2.5-0.025mg TAB PO PRN (09:49)
[2023-07-03] MEDS: Lidocaine PATCH 5% PATCH TRANSDERM SCH (09:49)
[2023-07-03 10:39] LABS: High Sensitivity Troponin 1 Hr 6 pg/mL (<15)
[2023-07-03 14:50] VITALS: BP 115/77
[2023-07-04] MEDS ORDERED: Cholecalciferol (VIT D3) 1,000 unit TAB PO SCH (09:00)
== END 2023-07-03 16:00 | DRG 521 ==
LOC: ED 16:36 → EDHOLD 16:36 → SUATTDRO 22:55 → SSU 06-27 00:11 → ICU 06-27 23:19 → SUATTDRO 06-28 09:00 → SSU 06-29 16:28
PROVIDERS: ADMIT Internal Medicine; ATTEND Internal Medicine